=== PATIENT | male | born 1965 | race Caucasian/White ===

== ENCOUNTER 2020-09-14 11:46 | Inpatient (IN) | payer MEDICAID ==
[~2020-09-14] VITALS: Ht 193 cm; Wt 214.3 kg
[~2020-09-14 11:46] MED LIST: ACETAMINOPHEN 500 MG TAB (TYLENOL) PO PRN; ALPRAZolam 0.25 MG (XANAX) TAB PO PRN; BISACODYL 10 MG SUPP (DULCOLAX) PR PRN; CALCIUM CARBONATE 500 MG (TUMS) TAB.CHEW PO PRN; DOCUSATE SODIUM 100 MG (COLACE) CAP PO PRN; ENOXAPARIN 40 MG/0.4 ML (LOVENOX) SYR SC SCH; FLEET ENEMA ADULT 1 EA BTL PR PRN; LACTULOSE SYRUP 10GM/15ML (ENULOSE) 30ML UDC PO PRN; LOPERAMIDE 2 MG (IMODIUM) TABLET PO PRN; MELATONIN 3 MG TABLET PO PRN; ONDANSETRON 4 MG (ZOFRAN) ORAL DISSOLVE TAB PO PRN; diphenhydrAMINE 25 MG TAB (BENADRYL) PO PRN; guaiFENesin/CODEINE (ROBITUSSIN AC) 10ML UDC PO PRN
[2020-09-14 13:00] VITALS: BP 140/87
--- NOTE | 2020-09-14 13:42 | Consultation - Surgery ---
RHINA SALCIDO MED STUDENT 09/14/20 1342: History of Present Illness History of Present Illness Patient Consulted On(khloe/time) 09/14/20 13:36 Date Seen by Provider: Sep 14, 2020 Time Seen by Provider: 14:28 History of Present Illness 55 yo male presents to in patient rehab from Replaced By [facility] following previous incision/ drainage and debridement of necrotic tissue at [facility]. Patient describes popping what he believed at the time to be an ingrown hair/ pimple on 08/24, later told it was a spider bite. The following day a silver dollar size, tender nodule was noticed. The next following day (08/26) the testicle had swollen to the size of the coconut where he decided to go to the hospital. Incision and drainage was performed in the OR on 08/27. Pt notes t enderness as a dull achy pain at 7-8/10 w/o pain medicine and bearable w/t pain medicine. Main complaint currently is pain with his knees when walking. Patient transferred to [facility] 09/14/20. Completed vancomycin and zosyn on 09/12/20. Consulted by Dr. Joyce Guerrero. Wound measurements: 8.4 L, 2.5 W, 2.1 D Allergies and Home Medications Allergies Coded Allergies: No Known Drug Allergies (Unverified , 09/14/20) Home Medications Acetaminophen 325 Mg Tablet, 650 MG PO Q6H PRN for PAIN-MILD (1-4) OR TEMPATURE, (Reported) Acidoph/L.bulg/Bif.b/S.thermop 1 Each Tablet, 1 EACH PO BID, (Reported) Alogliptin Benzoate 25 Mg Tablet, 25 MG PO DAILY, (Reported) Ascorbic Acid 500 Mg Tablet, 500 MG PO BID, (Reported) Atorvastatin Calcium 20 Mg Tablet, 20 MG PO HS, (Reported) Metformin HCl 1,000 Mg Tablet, 1,000 MG PO BID WITH MEALS, (Reported) Metoprolol Succinate 100 Mg Tab.er.24h, 100 MG PO DAILY, (Reported) Multivitamin with Minerals 1 Each Tablet, 1 EACH PO DAILY, (Reported) Nitroglycerin 0.4 Mg Tab.subl, 0.4 MG SL UD PRN for CHEST PAIN, (Reported) Oxycodone HCl 10 Mg Tablet, 10 MG PO Q4H PRN for PAIN-SEVERE (8-10), (Reported) Topiramate 25 Mg Tablet, 25 MG PO BID, (Reported) Trazodone HCl 100 Mg Tablet, 100 MG PO HS, (Reported) Zinc 50 Mg Tablet, 50 MG PO DAILY, (Reported) Past Ngfqvve-Zbdbhj-Hewefn Hx Patient Social History Smoking Status: Never a Smoker Alcohol Use?: No Surgeries History of Surgeries: Yes Surgeries: Ear Surgery (Tympanic repair left) Respiratory History of Respiratory Disorde: No Cardiovascular History of Cardiac Disorders: Yes Cardiac Disorders: High Cholesterol, Hypertension Neurological History of Neurological Disord: No Gastrointestinal History of Gastrointestinal Di: No Musculoskeletal History of Musculoskeletal Dis: Yes Musculoskeletal Disorders: Arthritis (bilateral knee most concerning) Endocrine History of Endocrine Disorders: Yes Endocrine Disorders: Diabetes, Non-Insulin dep HEENT History of HEENT Disorders: No Hearing Impairment: Hard of Hearing (bilateral due to working around heavy machinery) Cancer History of Cancer: No Psychosocial History of Psychiatric Problem: No Integumentary History of Skin or Integumenta: No Family Medical History Significant Family History: Asthma (maternal), Other Conditions/Hx (arthritis paternal and maternal) Review of Systems-General Constitutional: No chills, No dizziness; weakness (knees) EENTM: No hearing loss, No vision loss Respiratory: cough, dyspnea on exertion, phlegm (clear) Cardiovascular: No chest pain, No palpitations Gastrointestinal: No abdominal pain, No dysphagia, No nausea, No vomiting Genitourinary: No dysuria, No hematuria Musculoskeletal: back pain, joint pain (knees), joint swelling (knees) Skin: No lumps, No pruritus, No rash Psychiatric/Neurological: Denies Headache, Denies Numbness, Denies Tremors All Other Systems Reviewed Negative Unless Noted: Yes Physical Exam-General Problems Physical Exam Vital Signs Capillary Refill : General Appearance: WD/WN, no apparent distress, obese Eyes: Bilateral Eye PERRL, Bilateral Eye EOMI HEENT: PERRL/EOMI Neck: non-tender, full range of motion, supple, normal inspection Respiratory: chest non-tender, lungs clear, normal breath sounds, no respiratory distress, no accessory muscle use Cardiovascular: regular rate, rhythm, no edema, no gallop, no murmur Peripheral Pulses: 2+ Dorsalis Pedis (R), 2+ Left Dors-Pedis (L), 2+ Radial Pulses (R), 2+ Radial Pulses (L) Gastrointestinal: normal bowel sounds, non tender, soft Rectal: deferred Genital/Rectal: other (Fourniers gangrene (swollen, full thickness tissue loss, bright/ beefy red)) Back: no CVA tenderness Extremities: non-tender, normal inspection, no pedal edema, no calf tenderness Neurologic/Psychiatric: no motor/sensory deficits, alert, normal mood/affect, oriented x 3 Skin: other (Fourniers gangrene), tattoos/piercings Lymphatic: no adenopathy (cervical, supraclavicular, axillary) Assessment/Plan Assessment/Plan Assessment/Plan Fourniers gangrene Poorly controlled DM HTN Wound care Pain management Monitor wound healing BEREKET HOOPER DO 09/14/208: History of Present Illness History of Present Illness Time Seen by Provider: 16:21 History of Present Illness Surgery asked to consult regarding Scrotal wound with hx of Jose's. When I spoke to the pt he stated that he had surgery twice in [place]; once on 08/27 and then 2 days later. He was in the hospital for 3 weeks because of fever and other medical problems. Allergies and Home Medications Allergies Coded Allergies: No Known Drug Allergies (Unverified , 09/14/20) Home Medications Acetaminophen 325 Mg Tablet, 650 MG PO Q6H PRN for PAIN-MILD (1-4) OR TEMPATURE, (Reported) Acidoph/L.bulg/Bif.b/S.thermop 1 Each Tablet, 1 EACH PO BID, (Reported) Alogliptin Benzoate 25 Mg Tablet, 25 MG PO DAILY, (Reported) Ascorbic Acid 500 Mg Tablet, 500 MG PO BID, (Reported) Atorvastatin Calcium 20 Mg Tablet, 20 MG PO HS, (Reported) Metformin HCl 1,000 Mg Tablet, 1,000 MG PO BID WITH MEALS, (Reported) Metoprolol Succinate 100 Mg Tab.er.24h, 100 MG PO DAILY, (Reported) Multivitamin with Minerals 1 Each Tablet, 1 EACH PO DAILY, (Reported) Nitroglycerin 0.4 Mg Tab.subl, 0.4 MG SL UD PRN for CHEST PAIN, (Reported) Oxycodone HCl 10 Mg Tablet, 10 MG PO Q4H PRN for PAIN-SEVERE (8-10), (Reported) Topiramate 25 Mg Tablet, 25 MG PO BID, (Reported) Trazodone HCl 100 Mg Tablet, 100 MG PO HS, (Reported) Zinc 50 Mg Tablet, 50 MG PO DAILY, (Reported) Patient Home Medication List Home Medication List Reviewed: Yes Past Shucyeo-Fbclgx-Htcish Hx Patient Social History Smoking Status: Never a Smoker Alcohol Use?: No Surgeries History of Surgeries: Yes Respiratory History of Respiratory Disorde: No Musculoskeletal History of Musculoskeletal Dis: Yes Endocrine History of Endocrine Disorders: Yes Endocrine Disorders: Diabetes, Non-Insulin dep Family Medical History Significant Family History: Asthma (maternal), Other Conditions/Hx (arthritis paternal and maternal) Review of Systems-General Constitutional: No chills, No dizziness; weakness (knees) EENTM: No hearing loss, No vision loss Respiratory: cough, dyspnea on exertion, phlegm (clear) Cardiovascular: No chest pain, No palpitations Gastrointestinal: No abdominal pain, No dysphagia, No nausea, No vomiting Skin: see HPI, lumps, pruritus, rash Physical Exam-General Problems Physical Exam General Appearance: no apparent distress, obese (super morbidly) Eyes: Bilateral Eye PERRL, Bilateral Eye EOMI HEENT: No scleral icterus (R), No scleral icterus (L) Respiratory: lungs clear, normal breath sounds, no respiratory distress, no accessory muscle use Cardiovascular: regular rate, rhythm, no murmur Genital/Rectal: other (right side of scrotum, good granulation along open area (bright/ beefy red)) Extremities: no pedal edema, no calf tenderness 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 Supervisory-Addendum Brief Verification & Attestation Participated in pt care: history, MDM, physical Personally performed: exam, history, MDM Care discussed with: Medical Student Procedures: n/a Verification and Attestation of Medical Student E/M Service A medical student performed and documented this service. I then reviewed and verified all information documented by the medical student and made modifications to such information, when appropriate. I personally performed a physical exam, medical decision making and then discussed any differences between the notes and made revisions as necessary to create one note. Bereket Hooper , 09/14/20 , 21:58 RHINA SALCIDO MED STUDENT Sep 14, 2020 13:42 BEREKET HOOPER DO Sep 14, 2020 21:48
[2020-09-14] MEDS ORDERED: ACETAMINOPHEN 325 MG TABLET PO PRN (13:45)
[2020-09-14] MEDS ORDERED: ACID1TAB13 PO (13:46)
[2020-09-14] MEDS ORDERED: ACET325T38 PO (13:46)
[2020-09-14] MEDS ORDERED: ASCO500T17 PO (13:46)
[2020-09-14] MEDS ORDERED: ZINC50TA58 PO (13:46)
[2020-09-14] MEDS ORDERED: METF-399 PO (13:46)
[2020-09-14] MEDS ORDERED: OXYC10TA7 PO (13:46)
[2020-09-14] MEDS ORDERED: TRAZ-227 PO (13:46)
[2020-09-14] MEDS ORDERED: ALOG25TA PO (13:46)
[2020-09-14] MEDS ORDERED: NITR0.4T39 SL (13:46)
[2020-09-14] MEDS ORDERED: ATOR20TA66 PO (13:46)
[2020-09-14] MEDS ORDERED: MTP100TCR PO (13:46)
[2020-09-14] MEDS ORDERED: MULT-166 PO (13:46)
[2020-09-14] MEDS ORDERED: TOPI25TA10 PO (13:46)
--- NOTE | 2020-09-14 15:15 | Occupational Therapy Eval ---
OT Evaluation-General/PLF Medical Diagnosis Admission Date Sep 14, 2020 at 13:30 Medical Diagnosis: Jose's gangrene s/p multiple debridements Onset Date: Sep 05, 2020 Therapy Diagnosis Therapy Diagnosis: Weakness Precautions Precautions/Isolations: Fall Prevention, Standard Precautions Weight Bear Status Weight Bearing Restriction: Weight Bearing/Tolerated Referral Physician: Dr. Guerrero Referral Reason: Activity Tolerance, Self Care, Evaluation/Treatment, Strengthening/ROM Medical History Pertinent Medical History: DM, HTN Additional Medical History Hyperlipidemia Current History Pt. sustained spider bite on scrotum and ended up having severe swelling. This prompted him to go to the ER where it was found that he had gangrene. Pt. has had multiple debridements now. Transferred here for debility. Pt. also was miranda iting Cortisone injections in bilateral knees, but these are on hold due to this hospitalization. Pt. states that without these injections, he has difficulty with ambulation. Reviewed History: Yes Social History Home: Single Level Current Living Status: Entry Into Home: Level Entry Pt. currently rents a room in a house with friends in [place]. However, after this hospitalization he plans to move into his daughter's home in [place]. ADL-Prior Level of Function SCALE: Activities may be completed with or without assistive devices. 4-Kwmjjbpoza-kohphdy completes the activity by him/herself with no assistance from a helper. 5-Set-up or Clean-up Assistance-helper sets up or cleans up; patient completes activity. [place] assists only prior to or following the activity. 4-Supervision or Touching Assistance-helper provides verbal cues and/or touching/steadying and/or contact guard assistance as patient completes activity. Assistance may be provided throughout the activity or intermittently. 3-Partial/Moderate Assistance-helper does LESS THAN HALF the effort. [place] lifts, holds or supports trunk or limbs, but provides less than half the effort. 2-Substantial/Maximal Assistance-helper does MORE THAN HALF the effort. [place] lifts or holds trunk or limbs and provides more than half the effort. 4-Cezuzxted-lleejv does ALL the effort. Patient does none of the effort to complete the activity. Or, the assistance of 2 or more helpers is required for the patient to complete the activity. If activity was not attempted, code reason: 7-Patient Refused. 9-Not Applicable-not attempted and the patient did not perform the activity before the current illness, exacerbation or injury. 10-Not Attempted due to Environmental Limitations-(lack of equipment, weather restraints, etc.). 88-Not Attempted due to Medical Conditions or Safety Concerns. ADL PLOF Comments Pt. states that he was independent with all daily tasks. He does not have any assistive devices. 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 reports discomfort in scrotal area but does not give pain number. Does ask nursing for pain medication. Nursing working on this. Mental Status/Objective Patient Orientation: Person, Place, Time, Situation Current Glasses/Contacts: Yes Upper Extremity ROM WFL Upper Extremity Strength WFL ADL-Treatment Eating (QC): 6 Oral Hygiene (QC): 7 Shower/Bathe Self (QC): 3 (At bed level with sponge bath. Pt. able to wash upper body but required assistance to wash lower body.) Upper Body Dressing (QC): 5 Lower Body Dressing (QC): 3 On/Off Footwear (QC): 2 Toileting Hygiene (QC): 1 (Pt. has in catheter. States that he has only used a bedpan at other facility. Pt. shown and educated on BSC. Pt. unsure this will work due to scrotal size.) Other Treatments Pt. seen for co-treatment with PT due to need of skilled assistance x 2. PT focused on transfer training, LE movement, positioning, and wheelchair mobility while OT focused on ADL skills, UE movement and assessment, energy conservation and sequencing. Pt. able to transfer supine-sit with SBA, and sit-stand with min assist. Pt. limited with ambulation and transfers due to poor knee movement. Nursing will notify to see if pt. can transfer care for steroid injection at this facility. Pt. able to self propel wheelchair to therapy gym. Pt. educated on rehab goals and surroundings. All needs met back in room. Pt. able to stand at bedside by holding bedrail for wheelchair to be switched out for bigger chair. Pt. has call light and table when therapy leaves room. Education OT Patient Education: Correct positioning, Exercise program, Modified ADL techniques, Progress toward Goal/Update tx plan, Purpose of tx/functional activities, Reviewed precautions, Rehab process, Transfer techniques Teaching Recipient: Patient Teaching Methods: Demonstration, Discussion Response to Teaching: Verbalize Understanding, Return Demonstration OT Short Term Goals Short Term Goals Time Frame: Sep 21, 2020 Eatin Oral hygiene: 5 Toileting hygiene: 4 Shower/bathe self: 4 Upper body dressin Lower body dressin Putting on/taking off footwear: 4 OT Mover Goals Mover Goals Time Frame: Sep 28, 2020 Eating (QC): 6 Oral Hygiene (QC): 6 Toileting Hygiene (QC): 6 Shower/Bathe Self (QC): 4 Upper Body Dressing (QC): 6 Lower Body Dressing (QC): 6 On/Off Footwear (QC): 6 Additional Goals: 1-Demonstrate ADL Tasks, 2-Verbalize Understanding, 3-ImproveStrength/Warner 1=Demonstrate adherence to instructed precautions during ADL tasks. 2=Patient will verbalize/demonstrate understanding of assistive devices/modifications for ADL. 3=Patient will improve strength/tolerance for activity to enable patient to perform ADL's. OT Education/Plan Problem List/Assessment Assessment: Decreased Activ Tolerance, Dependent Transfers, Impaired I ADL's, Impaired Self-Care Skills Discharge Recommendations Plan/Recommendations: Continue POC Therapy Discharge Recommendati: Home & Family Comment Equipment needs to be determined. Treatment Plan/Plan of Care Treatment,Training & Education: Yes Patient would benefit from OT for education, treatment and training to promote independence in ADL's, mobility, safety and/or upper extremity function for ADL's. Plan of Care: ADL Retraining, Functional Mobility, UE Funct Exercise/Act Treatment Duration: Sep 28, 2020 Frequency: At least 5 of 7 days/Wk (IRF) Estimated Hrs Per Day: 1.5 hours per day Agreement: Yes Rehab Potential: Good Time/GCodes Start Time: 13:00 Stop Time: 14:30 Total Time Billed (hr/min): 80 Billed Treatment Time 9310-8155 PT eval, no charge 8310-9870 1, EVM x 10minutes [id number] ADL x 35minutes, FA x 35minutes- Co-treatment with PT. Please see above note for designated roles. BRENDAN BARBOZA OT Sep 14, 2020 15:15
--- NOTE | 2020-09-14 15:24 | ST Cognitive Linguistic Eval ---
Speech Evaluation-General Medical Diagnosis Jose Gangrene Therapy Diagnosis Therapy Diagnosis: Cognitive-communication Referral Referring Physician: Dr. Yolanda Acuna PLF-Current Status Prior Level of Function Patient lived in his own home where he was independent with his daily needs. Subjective Patient was pleasant and cooperative with the cognitive assessment. Language Eval: Auditory Comprehends Simple Yes/No Ques: Functional Indent/Objects Multiple Benjamin: Functional Ident/Pics in Multiple Benjamin: Functional Follows 1-Step Commands: Functional Follows Complex Directions: Functional Follows General Conversations: Functional Language Eval: Verbal Language Completes Spontaneous Greeting: Functional Produces Auto, Serial Info: Functional Imitates Simple Words/Phrases: Functional Word Finding: Functional Requests Basic Needs: Functional States Basic Personal Info: Functional Expresses Complex Ideas: Functional Objective Cognitive Domain Attention: WNL Memory: WNL Problem Solving: Functional Executive Functions: WNL Visuospatial Skills: WNL Composite Severity Rating: WNL Clock Drawing Severity Rating: WNL Objective Formal/Standardized Tests [facility] Status ([facility]) Results 29/30, within normal range of function Oral Motor/Speech Production Within Normal Limits Impression Patient is a 55 y/o male who was transferred to the [facility] ARU due to 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 Patient transferred from a [facility] following 2 surgeries. Patient was given the UMS with a score of 29/30 obtained. This score is within normal range of function and does not indicate the need for further ST services at this time. Speech Patient Assess Expression of Ideas/Wants: Expression (4) Understanding Verbal Content: Understands (4) Brief Interview-Mental Status: Yes Repetition of Three Words: Three (3) Temporal Orientation: Year: Correct (3) Temporal Orientation: Month: Accurate within 5 days(2) Temporal Orientation: Day: Correct (1) Recall : Wear to say "Sock": Yes, no cue required (2) Recall : Color: Yes, no cue required (2) Recall : Bed: Yes, no cue required (2) Memory/Recall Ability: Current season, That he or she is in a hsp/hsp unit Speech-Plan Patient/Family Goals Patient/Family Goals: Patient plans on returning to his home upon discharge. Treatment Plan Speech Therapy Treatment Plan: Discontinue ST Treatment Duration: Sep 14, 2020 Frequency: 1 time per week Estimated Hrs Per Day: .25 hour per day Rehab Potential: Good Barriers to Learning: None identified Pt/Family Agrees to Plan: Yes Safety Risks/Education Teaching Recipient: Patient Teaching Methods: Discussion Response to Teaching: Verbalize Understanding Education Topics Provided: Safety within his room and communication of wants/needs Time Speech Therapy Time In: 14:40 Speech Therapy Time Out: 15:00 Total Billed Time: 20 Billed Treatment Time 1, SPSNDCOMP TOYIN Atkins Sep 14, 2020 15:24
--- NOTE | 2020-09-14 15:34 | Physical Therapy Evaluation ---
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 He was treated at an acute care hospital and transferred to this facility for continued strength and mobiltiy training due to a decline post lengthy hospital stay. Pt notes B knee pain that is limiting WB or ambulation at this time. Reviewed History: Yes Social History Prior to this event, pt was living with friends in [place]. Reports he was renting a room from them. Reports his discharge plan is to move into a handicap apartment in [place] and receive homemaker assist 3 days a week. Reports he plans to move to [place] to be closer to his daughter Prior Prior Level of Function SCALE: Activities may be completed with or without assistive devices. 2-Icefdbrvqy-emzasyv completes the activity by him/herself with no assistance from a helper. 5-Set-up or Clean-up Assistance-helper sets up or cleans up; patient completes activity. [place] assists only prior to or following the activity. 4-Supervision or Touching Assistance-helper provides verbal cues and/or touching/steadying and/or contact guard assistance as patient completes activity. Assistance may be provided throughout the activity or intermittently. 3-Partial/Moderate Assistance-helper does LESS THAN HALF the effort. [place] lifts, holds or supports trunk or limbs, but provides less than half the effort. 2-Substantial/Maximal Assistance-helper does MORE THAN HALF the effort. [place] lifts or holds trunk or limbs and provides more than half the effort. 4-Wxydlkxqf-raxrgi does ALL the effort. Patient does none of the effort to complete the activity. Or, the assistance of 2 or more helpers is required for the patient to complete the activity. If activity was not attempted, code reason: 7-Patient Refused. 9-Not Applicable-not attempted and the patient did not perform the activity before the current illness, exacerbation or injury. 10-Not Attempted due to Environmental Limitations-(lack of equipment, weather restraints, etc.). 88-Not Attempted due to Medical Conditions or Safety Concerns. Bed Mobility: 6 Transfers (B,C,W/C): 6 Gait: 6 Stairs: 6 Indoor Mobility (Ambulation): Independent Stairs: Independent independent with mobility and self care. Community ambulator. PT Evaluation-Current Subjective Agrees to PT evaluation. Pt reports he is overdue for a steroid injection in both knees. Reports he was supposed to receive this in mid July, but missed the appt, as his truck was broken down. "Once I get the injection in both knees, I'll be able to get up and go." Pt hesitant to progress gait this date due to increased knee pain. Pt notes increased pain with WB activity and declines prolonged standing due to pain. He also declined ambulation tasks due to pain. Pain Numeric Pain Scale: 6 Location: Right, Left Location Body Site: Knee Pain Description: Ache, Stabbing Comment: Arthritic pain Pt/Family Goals He reports his goal is to get the knee injections so he can walk and return home as before. Objective Patient Orientation: Person, Place, Time Attachments: Langston Catheter ROM/Strength ROM Lower Extremities WFL Strength Lower Extremities Strength is grossly 4/5 throughout and painful with knee resistance activity. Integumentary/Posture Integumentary Refer to nursing notes; scrotal wound post spider bite Bowel Incontinence: No Bladder Incontinence: Langston Cath Posture normal and symmetrical Neuromuscular (Tone, Coordination, Reflexes) intact and functional Sensory Vision: Functional Hand Dominance: Right Sensation Right Lower Extremit: Intact Sensation Left Lower Extremity: Intact Transfers Roll Left & Right (QC): 6 Sit to Lying (QC): 4 Lying to Sitting/Side of Bed(Q: 4 Sit to Stand (QC): 3 (min assist with skilled cues for safety; min assist for balance and steady assist. ) Chair/Owr-kc-Qxszm Xfer(QC): 3 Toilet Transfer (QC): 7 (Pt declined toilet transfer this date, noting he did not need to use the toilet. ) Car Transfer (QC): 7 (Declined due to painful WB activity for transfer. ) Gait Does the Patient Walk?: No and Walking Goal IS indicated Mode of Locomotion: Both Anticipated Mode of Locomotion: Walk Walk 10 feet (QC): 7 Walk 50 ft with 2 Turns(QC): 7 Walk 150 ft (QC): 7 Walking 10ft/uneven surface-QC: 7 Gait Assistive Device: FWW Comments/Gait Description Pt declined ambulation this date due to B Knee pain. Wheelchair Training Does the Pt Use a Wheelchair?: Yes Wheel 50 ft with 2 turns (QC): 6 Wheel 150 ft (QC): 6 Type of Wheelchair: Manual Stairs 1 Step (curb) (QC): 7 4 Steps (QC): 7 12 Steps (QC): 7 Balance Sitting Static: Good Sitting Dynamic: Good Standing Static: Fair Standing Dynamic: Fair Picking up an Object (QC): 88 Treatment Co treat with OT due to complexity of patient needs. B knee pain with standing activity and risk of falls without skill of 2 clinicians to safely address transfers and safety with upright mobility requiring cues for hand placement and transfer technique. Pt completed a sponge bath and dressing activities. Multiple standing and transfers, bed mobility tasks and wc mobility training performed. Assessment/Needs Pt presents post acute hospital stay with a decline in functional mobility. He was indep at [facility]. His primary limitation to gait and transfers is B knee pain as he is past due to receive a cortisone injection in both knees. Pt will benefit from skilled PT to addres mobiltiy and safety to allow him to return home alone and care for himself at a mod [facility] level. Rehab Potential: Good PT Short Term Goals Short Term Goals Time Frame: Sep 21, 2020 Sit to stand: 4 Chair/iwe-kc-latgd transfer: 4 Walk 150 feet: 4 PT Media Relations Coordinator Goals Media Relations Coordinator Goals PT Fdc Goals Time Frame: Sep 28, 2020 Roll Left & Right (QC): 6 Sit to Lying (QC): 6 Lying-Sitting on Side/Bed(QC): 6 Sit to Stand (QC): 6 Chair/Gfe-yb-Wzvrm Xfer(QC): 6 Toilet Transfer (QC): 6 Car Transfer (QC): 6 Does the Patient Walk: No and Walking Goal IS indicated Walk 10 feet (QC): 6 Walk 50ft with 2 Turns (QC): 6 Walk 150 ft (QC): 6 Walking 10ft on Uneven Surface: 6 1 Step (curb) (QC): 6 4 Steps (QC): 6 12 Steps (QC): 4 Picking up an Object (QC): 4 Does the Pt use WC or Scooter?: Yes Wheel 50 feet with 2 turns (QC: 6 Type: Manual Wheel 150 feet: 6 PT Plan Problem List Problem List: Activity Tolerance, Functional Strength, Safety, Balance, Gait, Transfer, Bed Mobility Treatment/Plan Treatment Plan: Continue Plan of Care Treatment Plan: Bed Mobility, Education, Functional Activity Warner, Functional Strength, Group Therapy, Gait, Safety, Therapeutic Exercise, Transfers Treatment Duration: Sep 28, 2020 Frequency: At least 5 of 7 days/Wk (IRF) Estimated Hrs Per Day: 1.5 hours per day Patient and/or Family Agrees t: Yes Safety Risks/Education Patient Education: Safety Issues Teaching Recipient: Patient Teaching Methods: Discussion Response to Teaching: Return Demonstration Time/GCodes Time In: 1300 Time Out: 1310 (0238-8257 ) Total Billed Treatment Time: 80 Total Billed Treatment visit EVM 10 FA 70 (co treat with OT) SRINIVASA HERRON PT Sep 14, 2020 15:34
[2020-09-14 16:28] VITALS: BP 122/72
[2020-09-14] MEDS ORDERED: NITROGLYCERIN 0.4 MG SL TABS BTL 25'S SL PRN (18:15)
[2020-09-14] MEDS ORDERED: NON-FORMULARY MEDICATION 1 EA EA (Oxycodone HCl 10 MG) PO PRN (18:15)
--- NOTE | 2020-09-14 20:14 | Diagnostic Imaging Report ---
INDICATION: Chronic knee pain. COMPARISON: None. EXAMINATION: Multiple views of bilateral knees were obtained. FINDINGS: There are severe degenerative changes in all three compartments of both knees. There is no acute fracture or dislocation. Marginal joint space osteophytosis is seen. There is no joint effusion. No osseous lesion. IMPRESSION: Severe degenerative joint disease. Dictated by: Dictated on workstation # [id number]
--- NOTE | 2020-09-14 20:19 | PM&R Post Admission Assessment ---
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 Patient was taken to surgery for debridement. Patient ultimately required intubation and pressor therapy for septic shock. Multiple debridements during hospital stay. Patient ultimately moved to [facility] and completed Vanc and Zosyn. Patient does not use O2 or CPAP. Morbid obesity noted. Knee injections given by PCP every 3 months so I have conferred with Dr Bynum and he will initiate injections tomorrow so ordered xrays as he has requested. BM+. Pain is controlled. Past Mereuln-Rienus-Rojisi Hx Past Med/Social Hx: Reviewed Nursing Past Med/Soc Hx, Reviewed and Corrections made Patient Social History Marrital Status: single Employed/Student: unemployed Alcohol Use: Occasionally Uses Smoking Status: Never a Smoker Past Medical History Surgeries: Ear Surgery (Tympanic repair left) Cardiac: High Cholesterol, Hypertension Musculoskeletal: Arthritis (bilateral knee most concerning) Endocrine: Diabetes, Non-Insulin dep Hearing Impairment: Hard of Hearing (bilateral due to working around heavy machinery) Family History Asthma (maternal), Other Conditions/Hx (arthritis paternal and maternal) Prior Level of Function Bed Mobility: 6 Transfers: 6 Gait: 6 Stairs: 6 Indoor Mobility (Ambulation): Independent Stairs: Independent Self Care: Independent Functional Cognition: Independent 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 ) Chair/Qet-va-Euogx Xfer: 3 Car Transfer: 7 (Declined due to painful WB activity for transfer. ) Does the Patient Walk: No and Walking Goal IS indicated Mode of Locomotion: Both Anticipated Mode of Locomotion: Walk Walk 10 feet: 7 Walk 50 ft with 2 Turns: 7 Walk 150 ft: 7 Walking 10ft on uneven surface: 7 Gait Assistive Device: FWW Does the Pt Use a Wheelchair: Yes Wheel 50 ft with 2 turns: 6 Wheel 150 ft: 6 Type of Wheelchair: Manual 1 Step (curb): 7 4 Steps: 7 12 Steps: 7 Picking up an Object: 88 Eatin Oral Hygiene: 7 Shower/Bathe Self: 3 (At bed level with sponge bath. Pt. able to wash upper body but required assistance to wash lower body.) Upper Body Dressin Lower Body Dressin On/Off Footwear: 2 Toileting Hygiene: 1 (Pt. has in catheter. States that he has only used a bedpan at other facility. Pt. shown and educated on BSC. Pt. unsure this will work due to scrotal size.) PM&R Allergy/Meds/Data Review Allergies Coded Allergies: No Known Drug Allergies (Unverified , 09/14/20) Home Medications Scheduled Acidoph/L.bulg/Bif.b/S.thermop (Shara-Bid Caplet), 1 EACH PO BID, (Reported) Alogliptin Benzoate (Nesina), 25 MG PO DAILY, (Reported) Ascorbic Acid (Vitamin C), 500 MG PO BID, (Reported) Atorvastatin Calcium (Atorvastatin Calcium), 20 MG PO HS, (Reported) Metformin HCl (Metformin HCl), 1,000 MG PO BID WITH MEALS, (Reported) Metoprolol Succinate (Metoprolol Succinate), 100 MG PO DAILY, (Reported) Multivitamin with Minerals (Multivitamins with Minerals), 1 EACH PO DAILY, (R eported) Topiramate (Topiramate), 25 MG PO BID, (Reported) Trazodone HCl (Trazodone HCl), 100 MG PO HS, (Reported) Zinc (Zinc), 50 MG PO DAILY, (Reported) Scheduled PRN Acetaminophen (Tylenol), 650 MG PO Q6H PRN for PAIN-MILD (1-4) OR TEMPATURE, (Reported) Nitroglycerin (Nitroglycerin), 0.4 MG SL UD PRN for CHEST PAIN, (Reported) Oxycodone HCl (Oxycodone HCl), 10 MG PO Q4H PRN for PAIN-SEVERE (8-10), (Reported) Current Medications Current Medications Reviewed Laboratory Data Laboratory Tests 09/14/20 15:41: Glucometer 108 Review of Systems Constitutional: see HPI, malaise, weakness EENTM: no symptoms reported Respiratory: no symptoms reported Cardiovascular: no symptoms reported Gastrointestinal: no symptoms reported Genitourinary: no symptoms reported Musculoskeletal: back pain, joint pain Skin: see HPI Psychiatric/Neurological: Anxiety, Depressed All Other Systems Reviewed Negative Unless Noted: Yes Physical Exam Physical Exam Vital Signs Vital Signs - First Documented 09/14/20 13:00 Temp 37.8 Pulse 98 Resp 22 B/P (MAP) 140/87 (104) Pulse Ox 97 O2 Delivery Room Air Capillary Refill : Height, Weight, BMI Height: '" Weight: lbs. oz. kg; 57.98 BMI Method: General Appearance: No Apparent Distress, WD/WN, Chronically ill, Obese Eyes: Bilateral Eye PERRL, Bilateral Eye EOMI HEENT: PERRL/EOMI, Normal ENT Inspection, Pharynx Normal Neck: Full Range of Motion, Normal Inspection, Non Tender, Supple, Carotid Bruit Respiratory: Chest Non Tender, Lungs Clear, Normal Breath Sounds, No Accessory Muscle Use, No Respiratory Distress Cardiovascular: Regular Rate, Rhythm, No Edema, No Gallop, No JVD, No Murmur, Normal Peripheral Pulses Gastrointestinal: Normal Bowel Sounds, No Organomegaly, No Pulsatile Mass, Non Tender, Soft Back: Normal Inspection, No CVA Tenderness, No Vertebral Tenderness Extremity: Normal Capillary Refill, Normal Inspection, Normal Range of Motion, Non Tender, No Calf Tenderness, No Pedal Edema Neurologic/Psychiatric: Alert, Oriented x3, No Motor/Sensory Deficits (unable to ambulate due to myopathy), Normal Mood/Affect Skin: Normal Color, Warm/Dry Lymphatic: No Adenopathy PM&R Medical Assessment & Plan REHAB/MEDICAL ASSESSMENT AND PLAN: REHAB IMPAIRMENT GROUP: Jose's gangrene ETIOLOGIC DIAGNOSIS: Jose's gangrene The comorbidities that impact the patients function and/or functional outcome by: morbid obesity, debility from knee pain chronic issue, DM, Wound management REHAB PLAN: The patient is being admitted to our comprehensive inpatient rehabilitation [facility] and can tolerate the intensity of service consisting of at least: 180 minutes of therapy a day, 5 out of 7 days a week Rehab treatment will consist of: PT OT will focus on regaining function and ambulatory skills with use of AD and ADL independence The patient/family has a good understanding of our discharge process and will benefit from an interdisciplinary inpatient rehabilitation program. The patient has potential to make improvement and is in need of at least two of the following multidisciplinary therapies including but not limited to physical, occupational, speech, and prosthetics and orthotics. Additionally the patient will need services from respiratory, nutritional services, wound care, psychology, etc. (Customize this to each patient). Given the patients complex condition and risk of further medical complications, rehabilitation services cannot be safely or effectively provided at a lower level of care such as a shelter facility. 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 PT OT will focus on regaining function and ambulatory skills with use of AD and ADL independence All the above goals were reviewed with the patient and he/she is in agreement. By signing this document, I acknowledge that I have personally performed a full physical examination on this patient within 24 hours of admission to this inpatient rehabilitation facility and have determined the patient to be able to tolerate the above course of treatment at an intensive level for a reasonable period of time. I will be completing a detailed individualized Plan of Care for this patient by day #4 of the patients stay based upon the Preadmission Screen, the Post-Admission Evaluation, and the therapy evaluations. Admission Dx/Comorbidities: (1) Jose gangrene ICD Codes: N49.3 - Jose gangrene Assessment/Plan Assessment and Plan Assess & Plan/Chief Complaint 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 DM HTN Obesity Knee pain requiring steroid injections every 3 months by PCP Plan: IRF protocol Knee xrays Home meds Pain control GISELLE CARBONE DO Sep 14, 2020 20:19
[2020-09-14] MEDS ORDERED: methylPREDNISolone 40 MG/ML (DEPO MEDROL) VIAL IA NR (20:30)
[2020-09-14] MEDS ORDERED: BUPIVACAINE 0.25% 30 ML (SENSORCAINE) VIAL INJ NR (20:30)
[2020-09-14] MEDS ORDERED: [UNRECOGNIZED DRUG - OTHER] PO SCH (21:00)
[2020-09-14] MEDS ORDERED: ENOXAPARIN 40 MG/0.4 ML (LOVENOX) SYR SC SCH (21:00)
[2020-09-14] MEDS: LACTOBACILLUS ACIDOPHILUS (PROBIOTIC) CAPSULE PO SCH (21:08)
[2020-09-14] MEDS: traZODone 100 MG (DESYREL) TAB PO SCH (21:09)
[2020-09-14] MEDS: toPIRamate 25 MG (TOPAMAX) TAB PO SCH (21:10)
[2020-09-14] MEDS: DOCUSATE SODIUM 100 MG (COLACE) CAP PO SCH (21:19)
[2020-09-14] MEDS: polyethylene glycoL POWDER 17 GM (MIRALAX) PACK PO SCH (21:20)
[2020-09-14] MEDS: SENNA W/DOCUSATE (SENOKOT S) TABLET PO SCH (21:20)
[2020-09-15 05:54] VITALS: BP 138/83
[2020-09-15 06:00] LABS: BASOPHILS % (AUTO) 1 % (0-10); EOSINOPHILS # (AUTO) 0.4 10^3/uL (0.0-0.3); EOSINOPHILS % (AUTO) 5 % (0-10); HEMATOCRIT 37 % (40-54); HEMOGLOBIN 12.2 g/dL (13.3-17.7); LYMPHOCYTES # (AUTO) 2.8 10^3/uL (1.0-4.0); LYMPHOCYTES % (AUTO) 33 % (12-44); MEAN CORPUSCULAR HEMOGLOBIN 30 pg (25-34); MEAN CORPUSCULAR HGB CONC 33 g/dL (32-36); MEAN CORPUSCULAR VOLUME 91 fL (80-99); MEAN PLATELET VOLUME 10.2 fL (9.0-12.2); MONOCYTES # (AUTO) 0.9 10^3/uL (0.0-1.0); MONOCYTES % (AUTO) 10 % (0-12); NEUTROPHILS # (AUTO) 4.2 10^3/uL (1.8-7.8); NEUTROPHILS % (AUTO) 51 % (42-75); PLATELET COUNT 290 10^3/uL (130-400); WHITE BLOOD COUNT 8.3 10^3/uL (4.3-11.0)
[2020-09-15 06:21] LABS: ALBUMIN 3.8 GM/DL (3.2-4.5); CHLORIDE 104 MMOL/L (98-107); POTASSIUM 3.7 MMOL/L (3.6-5.0); SODIUM 136 MMOL/L (135-145)
[2020-09-15 06:23] LABS: CALCIUM 9.1 MG/DL (8.5-10.1)
[2020-09-15 06:24] LABS: GLUCOSE 110 MG/DL (70-105); TOTAL PROTEIN 7.4 GM/DL (6.4-8.2)
[2020-09-15 06:25] LABS: CARBON DIOXIDE 23 MMOL/L (21-32)
[2020-09-15 06:26] LABS: BILIRUBIN,TOTAL 0.6 MG/DL (0.1-1.0)
[2020-09-15 06:27] LABS: ALKALINE PHOSPHATASE 74 U/L (40-136); GFR ESTIMATED > 60
[2020-09-15 06:28] LABS: BUN/CREATININE RATIO 13
[2020-09-15 06:30] LABS: ALANINE AMINOTRANSFERASE 67 U/L (0-55)
[2020-09-15] MEDS: MULTIVIT W/MINERALS TAB (THERAGRAN M) PO SCH (06:45)
[2020-09-15] MEDS ORDERED: NON-FORMULARY MEDICATION 1 EA EA (Metformin HCl 1,000 MG) PO SCH (08:00)
[2020-09-15 08:12] VITALS: BP 140/75
[2020-09-15] MEDS: metFORMIN 500 MG (GLUCOPHAGE) TAB PO SCH ×2 (08:13→17:12)
[2020-09-15] MEDS: toPIRamate 25 MG (TOPAMAX) TAB PO SCH ×2 (08:14→20:32)
[2020-09-15] MEDS: LACTOBACILLUS ACIDOPHILUS (PROBIOTIC) CAPSULE PO SCH ×2 (08:14→20:32)
[2020-09-15] MEDS: meTOprolol SUCCINATE 100 MG (TOPROL XL) TAB PO SCH (08:14)
[2020-09-15] MEDS: ZINC SULFATE 220 MG CAPSULE PO SCH (08:14)
[2020-09-15] MEDS: ENOXAPARIN 60 MG/0.6 ML (LOVENOX) SYR SC SCH ×2 (08:14→20:32)
[2020-09-15] MEDS: ASCORBIC ACID (VIT C) 500 MG TABLET PO SCH ×2 (08:14→17:12)
[2020-09-15] MEDS: DOCUSATE SODIUM 100 MG (COLACE) CAP PO SCH ×2 (08:49→20:39)
[2020-09-15] MEDS: polyethylene glycoL POWDER 17 GM (MIRALAX) PACK PO SCH ×2 (08:49→20:39)
[2020-09-15] MEDS: SENNA W/DOCUSATE (SENOKOT S) TABLET PO SCH ×2 (08:49→20:39)
[2020-09-15] MEDS ORDERED: NON-FORMULARY MEDICATION 1 EA EA (Zinc 50 MG) PO SCH (09:00)
--- NOTE | 2020-09-15 09:58 | Occupational Ther Daily Note ---
OT Current Status-Daily Note Subjective Pt AxO, denies pain anywhere while laying. Pt expresses pain in B knees during SPT. Pt agrees to tx. OT/ PT co-treat from [id number] with OT addressing UE movement, ADLs, and problem solving while PT addresses LE movement/ strength and w/c mob. OT individual tx: [id number]. Denies pain, AxO Mental Status/Objective Patient Orientation: Person, Place, Situation, Normal For Age Attachments: Langston Catheter ADL-Treatment Therapy Code Descriptions/Definitions Functional [place] Measure: 0=Not Assessed/NA 4=Minimal Assistance 1=Total Assistance 5=Supervision or Setup 2=Maximal Assistance 6=Modified [place] 3=Moderate Assistance 7=Complete IndependenceSCALE: Activities may be completed with or without assistive devices. 8-Dqzzgzuuma-yvwmtny completes the activity by him/herself with no assistance from a helper. 5-Set-up or Clean-up Assistance-helper sets up or cleans up; patient completes activity. [place] assists only prior to or following the activity. 4-Supervision or Touching Assistance-helper provides verbal cues and/or touching/steadying and/or contact guard assistance as patient completes activity. Assistance may be provided throughout the activity or intermittently. 3-Partial/Moderate Assistance-helper does LESS THAN HALF the effort. [place] lifts, holds or supports trunk or limbs, but provides less than half the effort. 2-Substantial/Maximal Assistance-helper does MORE THAN HALF the effort. [place] lifts or holds trunk or limbs and provides more than half the effort. 9-Towzxoaha-rrgguv does ALL the effort. Patient does none of the effort to complete the activity. Or, the assistance of 2 or more helpers is required for the patient to complete the activity. If activity was not attempted, code reason: 7-Patient Refused. 9-Not Applicable-not attempted and the patient did not perform the activity before the current illness, exacerbation or injury. 10-Not Attempted due to Environmental Limitations-(lack of equipment, weather restraints, etc.). 88-Not Attempted due to Medical Conditions or Safety Concerns. Eating (QC): 6 Shower/Bathe Self (QC): 7 Upper Body Dressing (QC): 5 On/Off Footwear: 6 Other Treatment OT/ PT co-treat from [id number] with OT addressing UE movement, ADLs, and problem solving while PT addresses LE movement/ strength and w/c mob. Pt completes bed mob supine to sit SBA, SPT SBA to w/c. Pt pushes chair IND to gym, SPT to EOM. Pt completes UE strengthening/ balance and sock management as outlined EOM. Good fx UE endurance/ strength. Pt to get cortisone shots in B knees this date, decrease in standing ability due to pain and OT/ PT direct treatment towards sitting activity. W/c mob through halls with rest breaks (see PT for distance), UE fx activity endurance moderate with w/c mob. Returns to room, SPT SBA and in bed with all needs met, call light in reach. OT individual tx: [id number]: Pt educated on UE theraband ex (completes 20 reps bilaterally of 5/5 exercises). States pain in palmar crease due to theraband, given 6# weights to complete over weekend. All needs met. Education OT Patient Education: Correct positioning, Exercise program, Home exercise program, Progress toward Goal/Update tx plan, Purpose of tx/functional activities, Safety issues, Transfer techniques Teaching Recipient: Patient Teaching Methods: Demonstration, Handout, Discussion Response to Teaching: Verbalize Understanding, Return Demonstration, Reinforcement Needed OT Short Term Goals Short Term Goals Time Frame: Sep 21, 2020 Eatin Oral hygiene: 5 Toileting hygiene: 4 Shower/bathe self: 4 Upper body dressin Lower body dressin Putting on/taking off footwear: 4 OT Manager Program Management Goals Manager Program Management Goals Time Frame: Sep 28, 2020 Eating (QC): 6 Oral Hygiene (QC): 6 Toileting Hygiene (QC): 6 Shower/Bathe Self (QC): 4 Upper Body Dressing (QC): 6 Lower Body Dressing (QC): 6 On/Off Footwear (QC): 6 Additional Goals: 1-Demonstrate ADL Tasks, 2-Verbalize Understanding, 3- ImproveStrength/Warner 1=Demonstrate adherence to instructed precautions during ADL tasks. 2=Patient will verbalize/demonstrate understanding of assistive devices/modifications for ADL. 3=Patient will improve strength/tolerance for activity to enable patient to perform ADL's. OT Education/Plan Problem List/Assessment Assessment: Decreased Activ Tolerance, Dependent Transfers, Edema, Impaired Funct Balance, Impaired I ADL's, Impaired Self-Care Skills Discharge Recommendations Plan/Recommendations: Continue POC Therapy Discharge Recommendati: Home & Family Treatment Plan/Plan of Care Treatment,Training & Education: Yes Patient would benefit from OT for education, treatment and training to promote independence in ADL's, mobility, safety and/or upper extremity function for ADL's. Plan of Care: ADL Retraining, Functional Mobility, UE Funct Exercise/Act Treatment Duration: Sep 28, 2020 Frequency: At least 5 of 7 days/Wk (IRF) Estimated Hrs Per Day: 1.5 hours per day Agreement: Yes Rehab Potential: Good Time/GCodes Start Time: 09:00 (1330) Stop Time: 10:00 (1400) Total Time Billed (hr/min): 90 Billed Treatment Time OT/ PT co-treat from [id number] with OT addressing UE movement, ADLs, and problem solving while PT addresses LE movement/ strength and w/c mob. 1, ADL, EX 2, WC (60) OT individual tx: 1, EX 2 (30) ROXY CALLAWAY OTR Sep 15, 2020 09:58
--- NOTE | 2020-09-15 10:00 | Physical Therapy Daily Note ---
PT Daily Note-Current Subjective Patient in bed pre tx, agrees to PT, has no pain at rest but has severe bilateral knee pain with activity. Patient is supposed to get shots in his knees this afternoon. Will be co-treating with OT due to poor patient mobility, endurance, severe pain with activity, coordinate UE and LE during activity, safety and reduce risk of falls. Appearance Patient in bed post tx with nurse call, phone, tray, all needs met. Mental Status Patient Orientation: Normal For Age Attachments: [place] Catheter Transfers SCALE: Activities may be completed with or without assistive devices. 0-Squvnzwipu-jbpqdeo completes the activity by him/herself with no assistance from a helper. 5-Set-up or Clean-up Assistance-helper sets up or cleans up; patient completes activity. [place] assists only prior to or following the activity. 4-Supervision or Touching Assistance-helper provides verbal cues and/or touching/steadying and/or contact guard assistance as patient completes activity. Assistance may be provided throughout the activity or intermittently. 3-Partial/Moderate Assistance-helper does LESS THAN HALF the effort. [place] lifts, holds or supports trunk or limbs, but provides less than half the effort. 2-Substantial/Maximal Assistance-helper does MORE THAN HALF the effort. [place] lifts or holds trunk or limbs and provides more than half the effort. 6-Itatmwabg-ybagle does ALL the effort. Patient does none of the effort to complete the activity. Or, the assistance of 2 or more helpers is required for the patient to complete the activity. If activity was not attempted, code reason: 7-Patient Refused. 9-Not Applicable-not attempted and the patient did not perform the activity before the current illness, exacerbation or injury. 10-Not Attempted due to Environmental Limitations-(lack of equipment, weather restraints, etc.). 88-Not Attempted due to Medical Conditions or Safety Concerns. Roll Left & Right (QC): 6 Sit to Lying (QC): 6 Lying to Sitting/Side of Bed(Q: 6 Sit to Stand (QC): 4 Chair/Dub-nt-Brbnv Xfer(QC): 4 Patient was able to stand pivot to WC with SBA. Patient cleans himself up a little before getting out of bed, then propels to therapy gym. Wheelchair Training Does the Pt Use a Wheelchair?: Yes Wheel 50 ft with 2 turns (QC): 4 Wheel 150 ft (QC): 4 Type of Wheelchair: Manual 100', 200' Exercises seated abdominal training, x20, LAQ x20 each side Treatments PT performed bed mobility and transfers, WC mobility, LE exercise, OT performed ADL's, UE exercise, UE positioning and safety during activity. Assessment Current Status: Fair Progress Patient states he really needs to ambulate in order to go home but can't do it until he gets the shots in his knees. Patient needs rest breaks very often due to pain and fatigue. 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 Long-Term Goals PT Long-Term Goals Time Frame: Sep 28, 2020 Roll Left & Right (QC): 6 Sit to Lying (QC): 6 Lying-Sitting on Side/Bed(QC): 6 Sit to Stand (QC): 6 Chair/Qwh-kh-Aojmq Xfer(QC): 6 Toilet Transfer (QC): 6 Car Transfer (QC): 6 Does the Patient Walk: No and Walking Goal IS indicated Walk 10 feet (QC): 6 Walk 50ft with 2 Turns (QC): 6 Walk 150 ft (QC): 6 Walking 10ft on Uneven Surface: 6 1 Step (curb) (QC): 6 4 Steps (QC): 6 12 Steps (QC): 4 Picking up an Object (QC): 4 Does the Pt use WC or Scooter?: Yes Wheel 50 feet with 2 turns (QC: 6 Type: Manual Wheel 150 feet: 6 PT Plan Problem List Problem List: Activity Tolerance, Functional Strength, Safety, Balance, Gait, Transfer Treatment/Plan Treatment Plan: Continue Plan of Care Treatment Plan: Bed Mobility, Education, Functional Activity Warner, Functional Strength, Group Therapy, Gait, Safety, Therapeutic Exercise, Transfers Treatment Duration: Sep 28, 2020 Frequency: At least 5 of 7 days/Wk (IRF) Estimated Hrs Per Day: 1.5 hours per day Patient and/or Family Agrees t: Yes Safety Risks/Education Patient Education: Transfer Techniques, Correct Positioning, W/C Management, Safety Issues Teaching Recipient: Patient Teaching Methods: Demonstration, Discussion Response to Teaching: Reinforcement Needed Time/GCodes Time In: 0900 Time Out: 1000 Total Billed Treatment Time: 60 Total Billed Treatment 1 visit FA 60' ARIEL CHU PT Sep 15, 2020 10:00
--- NOTE | 2020-09-15 10:07 | Individualized Plan of Care ---
Individualized Plan of Care Rehab Nursing IPOC Order Admission Date Sep 14, 2020 at 13:30 Current Orders Orders Admission Order(Inpt,Obs,Sdc) (09/14/20 11:44) Vital Signs: Per Unit Policy ( ,16,00 (09/14/20 11:44) Brian Clifford (09/14/20 11:44) Sequential Compression Device .admit (09/14/20 11:44) Primary Care Physician-Inpt Rehab Con (09/14/20 11:44) Rehab Nursing Orders-Ipoc (09/14/20 11:44) Physical Therapy Rehab Orders (09/14/20 11:44) Occupational Therapy Rehab Ord (09/14/20 11:44) Speech Therapy Rehab Orders (09/14/20 11:44) Cbc With Automated Diff (09/15/20 06:00) Comprehensive Metabolic Panel (09/15/20 06:00) Intake & Output 06,14,22 (09/14/20 11:44) Precautions (Aru) (09/14/20 11:44) Rehab-Intensity Of Therapy (09/14/20 11:44) Initiate Admission Nursing Pro .admission (09/14/20 11:44) Acetaminophen Tablet (Tylenol Tablet) (09/14/20 11:45) Alprazolam Tablet (Xanax Tablet) (09/14/20 11:45) Calcium Carbonate Chew Tablet (Antacid C (09/14/20 11:45) Diphenhydramine Tablet (Benadryl Tablet) (09/14/20 11:45) Docusate Sodium Capsule (Colace Capsule) (09/14/20 21:00) Docusate Sodium Capsule (Colace Capsule) (09/14/20 11:45) Bisacodyl Suppository (Dulcolax Supposit (09/14/20 11:45) Lactulose Oral Solution (Enulose Oral So (09/14/20 11:45) Na Phos/Na Biphos Enema (Fleet Enema Rudolph (09/14/20 11:45) Guaifenesin/Codeine Syrup (Robitussin Ac (09/14/20 11:45) Loperamide Tablet (Imodium Tablet) (09/14/20 11:45) Melatonin Tablet (Melatonin Tablet) (09/14/20 11:45) Polyethylene Glycol Powder Pkt (Miralax (09/14/20 21:00) Ondansetron Oral Dissolve Tab (Zofran (09/14/20 11:45) Senna S Tablet (Senokot S Tablet) (09/14/20 21:00) Initiate Admission Nursing Pro .admission (09/14/20 11:44) Enoxaparin Injection (Lovenox Injection) (09/14/20 11:45) Enoxaparin Injection (Lovenox Injection) (09/14/20 21:00) Admission Arrival Bed Request (09/14/20 12:57) Acetaminophen Tablet/Caplet (Tylenol T (09/14/20 13:45) Patient Visit (09/14/20 ) Speech Sound Lang Comp (09/14/20 ) Patient Visit (09/14/20 ) Pt Eval Moderate Complexity (09/14/20 ) Functional Activities, Ea 15 (09/14/20 ) General/Regular (09/14/20 Dinner) Acetaminophen Tablet/Caplet (Tylenol T (09/14/20 18:15) Atorvastatin Tablet (Lipitor Tablet) (09/14/20 21:00) Metoprolol Succinate (Xl) Tab (Toprol Xl (09/15/20 09:00) Therapeutic Multivitamin Tab (Vitamins, (09/15/20 07:00) Nitroglycerin 0.4 Mg Btl 25's (Nitrostat (09/14/20 18:15) Topiramate Tablet (Topamax Tablet) (09/14/20 21:00) Trazodone Tablet (Desyrel Tablet) (09/14/20 21:00) (Nf) Acidoph/L.Bulg/Bif.B/S.Thermop (Ris (09/14/20 21:00) (Nf) Alogliptin Benzoate (Nesina) (09/15/20 09:00) (Nf) Metformin Hcl (09/15/20 08:00) (Nf) Oxycodone Hcl (09/14/20 18:15) (Nf) Zinc (09/15/20 09:00) Ascorbic Acid Tablet (Vitamin C Tablet) (09/15/20 08:00) Zinc Sulfate Capsule (Zinc 50 Mg Capsule (09/15/20 08:00) Metformin Tablet (Glucophage Tablet) (09/15/20 08:00) Lactobacillus Acidophilus Cap (Acidophil (09/14/20 21:00) Oxycodone Immediate Rel Tablet (Oxyir Ta (09/14/20 18:45) Transfer - Bed/Room/Location (09/14/20 18:47) Knee, 2 Views, Bilateral (09/14/20 19:24) Consult Orthopedic Surgery (09/14/20 19:24) Consult General Surgery (09/14/20 20:18) Consent-Obtain Consent For FRIDAY (09/14/20 20:25) Methylprednisolone Acetate Inj (Depo-Med (09/14/20 20:30) Bupivacaine 0.25% Injection (Sensorcaine (09/14/20 20:30) Enoxaparin Injection (Lovenox Injection) (09/15/20 09:00) Fluconazole Tablet (Diflucan Tablet) (09/16/20 09:00) Dressing Order (Intervention) BID PRN (09/15/20 10:45) Miconazole 2% Powder (Desenex Af 2% Powd (09/15/20 11:00) Patient Visit (09/15/20 ) Functional Activities, Ea 15 (09/15/20 ) Exercise Therap, Ea 15 Min (09/15/20 ) Rehab Nursing Orders: Ongoing Assess. of Function Status, Bladder Management, Bladder Scan, Bladder Training, Bowel Management, Bowel Training, Disease Management & Educaiton, DVT Prophylaxis, Fall Prevention, Fluid/Electrolyte/Nutrition Mgmt, Infection Prevention, Medication Management & Education, Management of Risks & Complications, Management of Skin Intergrity, Nutrition Management, Pain Management, Patient/Family Support, Safety Management, Wound Management Intensity of Therapy to be met Patient to be seen: Min.3h per day/5 of 7d PT IPOC Problem List: Activity Tolerance, Functional Strength, Safety, Balance, Gait, Transfer Treatment Plan: Continue Plan of Care Bed Mobility, Education, Functional Activity Warner, Functional Strength, Group Therapy, Gait, Safety, Therapeutic Exercise, Transfers Treatment Duration: Sep 28, 2020 Frequency: At least 5 of 7 days/Wk (IRF) Estimated Hrs Per Day: 1.5 hours per day OT IPOC Problems: Decreased Activ Tolerance, Dependent Transfers, Edema, Impaired Funct Balance, Impaired I ADL's, Impaired Self-Care Skills OT Treatment, Training and Edu: Yes Plan of Care: ADL Retraining, Functional Mobility, UE Funct Exercise/Act Treatment Duration: Sep 28, 2020 Frequency: At least 5 of 7 days/Wk (IRF) Estimated Hrs Per Day: 1.[address] IPOC Speech Therapy Treatment Plan: Discontinue ST Treatment Duration: Sep 14, 2020 Frequency: 1 time per week Estimated Hrs Per Day: .25 hour per day Primary Care Physician/Case Mgmt Primary Care Physician/Case Managemen: Discharge Planning Dietitian/Goodwill Ambassador Dietitian/Goodwill Ambassador to monitor nutritional status and make changes and/or recommendations as needed and work with speech pathology on dietary upgrades as the occur. 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
--- NOTE | 2020-09-15 10:07 | PM&R Progress Note ---
Subjective HPI/CC On Admission Date Seen by Provider: Sep 15, 2020 Time Seen by Provider: 10:00 Subjective/Events-last exam 09/15/20: Patient doing well Knee injections will be performed this afternoon Dr Hooper consulted for wound care Wound vac contemplated Yeast infection noted so will initiate Diflucan and wound care will initiate topicals per protocol No issues otherwise Review of Systems General: Fatigue, Malaise Musculoskeletal: leg pain Neurological: Weakness Objective Exam Vital Signs Vital Signs Date Time Temp Pulse Resp B/P (MAP) Pulse Ox O2 Delivery O2 Flow Rate FiO2 09/15/20 21:00 Room Air 09/15/20 17:00 36.2 81 20 151/83 (105) 94 Capillary Refill : General Appearance: No Apparent Distress, WD/WN, Chronically ill, Obese HEENT: PERRL/EOMI, Normal ENT Inspection, Pharynx Normal Neck: Full Range of Motion, Normal Inspection, Non Tender, Supple, Carotid Bruit Respiratory: Chest Non Tender, Lungs Clear, Normal Breath Sounds, No Accessory Muscle Use, No Respiratory Distress Cardiovascular: Regular Rate, Rhythm, No Edema, No Gallop, No JVD, No Murmur, Normal Peripheral Pulses Gastrointestinal: Normal Bowel Sounds, No Organomegaly, No Pulsatile Mass, Non Tender, Soft Back: Normal Inspection, No CVA Tenderness, No Vertebral Tenderness Extremity: Normal Capillary Refill, Normal Inspection, Normal Range of Motion, Non Tender, No Calf Tenderness, No Pedal Edema Neurologic/Psychiatric: Alert, Oriented x3, No Motor/Sensory Deficits (unable to ambulate due to myopathy), Normal Mood/Affect Skin: Normal Color, Warm/Dry Lymphatic: No Adenopathy Results/Procedures Lab Patient resulted labs reviewed. FIM Transfers Therapy Code Descriptions/Definitions Functional [place] Measure: 0=Not Assessed/NA 4=Minimal Assistance 1=Total Assistance 5=Supervision or Setup 2=Maximal Assistance 6=Modified [place] 3=Moderate Assistance 7=Complete IndependenceSCALE: Activities may be completed with or without assistive devices. 7-Xjgzrajynu-jceitot completes the activity by him/herself with no assistance from a helper. 5-Set-up or Clean-up Assistance-helper sets up or cleans up; patient completes activity. [place] assists only prior to or following the activity. 4-Supervision or Touching Assistance-helper provides verbal cues and/or touching/steadying and/or contact guard assistance as patient completes activity. Assistance may be provided throughout the activity or intermittently. 3-Partial/Moderate Assistance-helper does LESS THAN HALF the effort. [place] lifts, holds or supports trunk or limbs, but provides less than half the effort. 2-Substantial/Maximal Assistance-helper does MORE THAN HALF the effort. [place] lifts or holds trunk or limbs and provides more than half the effort. 3-Qnzaubiub-odzrrm does ALL the effort. Patient does none of the effort to complete the activity. Or, the assistance of 2 or more helpers is required for the patient to complete the activity. If activity was not attempted, code reason: 7-Patient Refused. 9-Not Applicable-not attempted and the patient did not perform the activity before the current illness, exacerbation or injury. 10-Not Attempted due to Environmental Limitations-(lack of equipment, weather restraints, etc.). 88-Not Attempted due to Medical Conditions or Safety Concerns. Roll Left to Right (QC): 6 Sit to Lying (QC): 6 Sit to Stand (QC): 4 Chair/Yfm-hy-Vtkth Xfer(QC): 4 Car Transfer (QC): 7 (Declined due to painful WB activity for transfer. ) Gait Training Does the Patient Walk?: No and Walking Goal IS indicated Walk 10 feet (QC): 7 Walk 50 ft with 2 Turns(QC): 7 Walk 150 ft (QC): 7 Walking 10ft/uneven surface-QC: 7 Gait Assistive Device: FWW Wheelchair Training Does the Pt Use a Wheelchair?: Yes Wheel 50 ft with 2 turns (QC): 4 Wheel 150 ft (QC): 4 Type of Wheelchair: Manual Stair Training 1 Step (curb) (QC): 7 4 Steps (QC): 7 12 Steps (QC): 7 Balance Picking up an Object (QC): 88 ADL-Treatment Eating (QC): 6 Oral Hygiene (QC): 7 Shower/Bathe Self (QC): 7 Upper Body Dressing (QC): 5 Lower Body Dressing (QC): 3 On/Off Footwear (QC): 6 Toileting Hygiene (QC): 1 (Pt. has in catheter. States that he has only used a bedpan at other facility. Pt. shown and educated on BSC. Pt. unsure this will work due to scrotal size.) Assessment/Plan Assessment and Plan Assess & Plan/Chief Complaint 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 DM HTN Obesity Knee pain requiring steroid injections every 3 months by PCP Plan: IRF protocol Knee xrays Home meds Pain control 09/15/20: Knee injections Appreciate Dr Bynum and Blas Buchanan Knee xrays discussed IRF protocol Dr Hooper appreciated (1) Jose gangrene GISELLE CARBONE DO Sep 15, 2020 10:07
[2020-09-15] MEDS: MICONAZOLE 2% POWDER (DESENEX AF) 90 GM TOP SCH ×2 (12:00→20:33)
--- NOTE | 2020-09-15 13:55 | Physical Therapy Daily Note ---
PT Daily Note-Current Subjective Patient in bed pre tx, agrees to PT, has not gotten knee shots yet. Appearance Patient in bed post tx with nurse call, phone, tray, all needs met. Mental Status Patient Orientation: Normal For Age Transfers SCALE: Activities may be completed with or without assistive devices. 1-Ebrrhndfbf-mzutcgj completes the activity by him/herself with no assistance f rom a helper. 5-Set-up or Clean-up Assistance-helper sets up or cleans up; patient completes activity. [place] assists only prior to or following the activity. 4-Supervision or Touching Assistance-helper provides verbal cues and/or touching/steadying and/or contact guard assistance as patient completes activity. Assistance may be provided throughout the activity or intermittently. 3-Partial/Moderate Assistance-helper does LESS THAN HALF the effort. [place] lifts, holds or supports trunk or limbs, but provides less than half the effort. 2-Substantial/Maximal Assistance-helper does MORE THAN HALF the effort. [place] lifts or holds trunk or limbs and provides more than half the effort. 5-Qxatymgjj-hjyhwh does ALL the effort. Patient does none of the effort to complete the activity. Or, the assistance of 2 or more helpers is required for the patient to complete the activity. If activity was not attempted, code reason: 7-Patient Refused. 9-Not Applicable-not attempted and the patient did not perform the activity before the current illness, exacerbation or injury. 10-Not Attempted due to Environmental Limitations-(lack of equipment, weather restraints, etc.). 88-Not Attempted due to Medical Conditions or Safety Concerns. Exercises Supine Ex: Ankle pumps, Quad Set, Glut sets, Heel Slides, Short Arc Quads, Straight leg raise, Hip abd/add Supine Reps: 20 (2 sets) Treatments LE exercise Assessment Current Status: Fair Progress Good performance with exercises but needs frequent rest breaks due to fatigue and pain. PT Short Term Goals Short Term Goals Time Frame: Sep 21, 2020 Sit to stand: 4 Chair/ews-ta-megie transfer: 4 Walk 150 feet: 4 PT Housekeeper Head Goals Housekeeper Head Goals PT Fci Goals Time Frame: Sep 28, 2020 Roll Left & Right (QC): 6 Sit to Lying (QC): 6 Lying-Sitting on Side/Bed(QC): 6 Sit to Stand (QC): 6 Chair/Zeg-dd-Mfphe Xfer(QC): 6 Toilet Transfer (QC): 6 Car Transfer (QC): 6 Does the Patient Walk: No and Walking Goal IS indicated Walk 10 feet (QC): 6 Walk 50ft with 2 Turns (QC): 6 Walk 150 ft (QC): 6 Walking 10ft on Uneven Surface: 6 1 Step (curb) (QC): 6 4 Steps (QC): 6 12 Steps (QC): 4 Picking up an Object (QC): 4 Does the Pt use WC or Scooter?: Yes Wheel 50 feet with 2 turns (QC: 6 Type: Manual Wheel 150 feet: 6 PT Plan Problem List Problem List: Activity Tolerance, Functional Strength, Safety, Balance, Gait, Transfer, Bed Mobility, ROM Treatment/Plan Treatment Plan: Continue Plan of Care Treatment Plan: Bed Mobility, Education, Functional Activity Warner, Functional Strength, Group Therapy, Gait, Safety, Therapeutic Exercise, Transfers Treatment Duration: Sep 28, 2020 Frequency: At least 5 of 7 days/Wk (IRF) Estimated Hrs Per Day: 1.5 hours per day Patient and/or Family Agrees t: Yes Safety Risks/Education Patient Education: Correct Positioning, Safety Issues Teaching Recipient: Patient Teaching Methods: Demonstration, Discussion Response to Teaching: Reinforcement Needed Time/GCodes Time In: 1300 Time Out: 1330 Total Billed Treatment Time: 30 Total Billed Treatment 1 visit EX 30' ARIEL CHU PT Sep 15, 2020 13:55
[2020-09-15 17:00] VITALS: BP 151/83
--- NOTE | 2020-09-15 17:09 | Progress Note - Surgery ---
YUSRA TIM,MED STUDENT 09/15/209: Subjective Date Seen by a Provider: Sep 15, 2020 Time Seen by a Provider: 17:03 Subjective/Events-last exam Pt seen and examined this evening. States he is feeling well. Denies any pain in his scrotum and reports decreased edema in the area. Reports bilateral knee pain and states he received steroid injections for these today. Denies fever, chills, abd pain, n/v, constipation, diarrhea, chest pain or SOB. Reports coughing up phlegm occasionally. Review of Systems General: No Chills HEENT: No Head Aches Pulmonary: No Dyspnea; Cough Cardiovascular: No: Chest Pain, Palpitations Gastrointestinal: No: Nausea, Vomiting, Abdominal Pain, Diarrhea, Constipation Musculoskeletal: leg pain (Bilateral knees) Neurological: No: Weakness, Numbness, Confusion Objective Exam Vital Signs Date Time Temp Pulse Resp B/P (MAP) Pulse Ox O2 Delivery O2 Flow Rate FiO2 09/15/20 17:00 36.2 81 20 151/83 (105) 94 Room Air 09/15/20 08:12 140/75 (96) 09/15/20 08:00 Room Air 09/15/20 05:54 36.2 76 20 138/83 (101) 96 Room Air 09/14/20 20:00 Room Air I & O 09/15/20 07:00 Intake Total 2000 ml Output Total 3900 ml Balance -1900 ml Capillary Refill : General Appearance: No Apparent Distress, WD/WN, Obese HEENT: PERRL/EOMI, Moist Mucous Membranes Respiratory: Lungs Clear, No Accessory Muscle Use, No Respiratory Distress Cardiovascular: Regular Rate, Rhythm, No Murmur Peripheral Pulses: 2+ Dorsalis Pedis (R), 2+ Left Dors-Pedis (L), 2+ Radial Pulses (R), 2+ Radial Pulses (L) Gastrointestinal: normal bowel sounds, non tender, soft Neurologic/Psychiatric: Alert, Oriented x3, Normal Mood/Affect Skin: Normal Color, Warm/Dry, Other (Scrotum dressing c/d/i) Results Lab Laboratory Tests 09/15/20 05:50: White Blood Count 8.3, Red Blood Count 4.07L, Hemoglobin 12.2L, Hematocrit 37L, Mean Corpuscular Volume 91, Mean Corpuscular Hemoglobin 30, Mean Corpuscular Hemoglobin Concent 33, Red Cell Distribution Width 13.1, Platelet Count 290, Mean Platelet Volume 10.2, Immature Granulocyte % (Auto) 1, Neutrophils (%) (Auto) 51, Lymphocytes (%) (Auto) 33, Monocytes (%) (Auto) 10, Eosinophils (%) (Auto) 5, Basophils (%) (Auto) 1, Neutrophils # (Auto) 4.2, Lymphocytes # (Auto) 2.8, Monocytes # (Auto) 0.9, Eosinophils # (Auto) 0.4H, Basophils # (Auto) 0.0, Immature Granulocyte # (Auto) 0.1, Sodium Level 136, Potassium Level 3.7, Chloride Level 104, Carbon Dioxide Level 23, Anion Gap 9, Blood Urea Nitrogen 12, Creatinine 0.90, Estimat Glomerular Filtration Rate > 60, BUN/Creatinine Rat io 13, Glucose Level 110H, Calcium Level 9.1, Corrected Calcium 9.3, Total Bilirubin 0.6, Aspartate Amino Transf (AST/SGOT) 57H, Alanine Aminotransferase (ALT/SGPT) 67H, Alkaline Phosphatase 74, Total Protein 7.4, Albumin 3.8 Assessment/Plan Assessment/Plan Assessment/Plan Fourniers gangrene- s/p debridement Poorly controlled DM HTN Continue local wound care with daily dressing changes Pain control, glucose control, PT/OT BALAJI HOOPER DO 09/15/20 1751: Subjective Time Seen by a Provider: 17:08 Subjective/Events-last exam Pt seen and examined, states he is doing better and thinks scrotal swelling has improved. His main complaint was of knee pain. Review of Systems General: No Chills HEENT: No Head Aches Pulmonary: No Dyspnea; Cough Cardiovascular: No: Chest Pain, Palpitations Gastrointestinal: No: Nausea, Vomiting, Abdominal Pain, Diarrhea, Constipation Objective Exam General Appearance: No Apparent Distress, Obese (super morbidly) HEENT: PERRL/EOMI, Moist Mucous Membranes Respiratory: Lungs Clear, No Accessory Muscle Use, No Respiratory Distress Cardiovascular: Regular Rate, Rhythm, No Murmur Gastrointestinal: normal bowel sounds, non tender, soft Neurologic/Psychiatric: Alert, Oriented x3 Skin: Other (Scrotum dressing c/d/i, erythema in inguinal creases) Assessment/Plan Assessment/Plan Assessment/Plan Fourniers gangrene- s/p debridement Non-healing wound Candidal infection Poorly controlled DM HTN Continue local wound care with daily dressing changes, spoke with wound care nurse and added Nystatin powder to be place in inguinal creases. Pain control, glucose control, PT/OT Supervisory-Addendum Brief Verification & Attestation Participated in pt care: history, MDM, physical Personally performed: exam, history, MDM Care discussed with: Medical Student Procedures: n/a Verification and Attestation of Medical Student E/M Service A medical student performed and documented this service. I then reviewed and verified all information documented by the medical student and made modifications to such information, when appropriate. I personally performed a physical exam, medical decision making and then discussed any differences between the notes and made revisions as necessary to create one note. Balaji Hooper , 09/15/20 , 17:51 YUSRA TIM,MED STUDENT Sep 15, 2020 17:09 BALAJI HOOPER DO Sep 15, 2020 17:51
[2020-09-15] MEDS: traZODone 100 MG (DESYREL) TAB PO SCH (20:32)
--- NOTE | 2020-09-16 01:36 | CONSULTATION REPORT ---
DATE OF SERVICE: INPATIENT CONSULT ROOM #222. REASON FOR CONSULTATION: Consult is issued for bilateral knee injections. SERVICE: Orthopedic surgery. ADMITTING PHYSICIAN: Joyce Guerrero DO HISTORY OF PRESENT ILLNESS: This is a 55-year-old male who has a longstanding history of bilateral knee osteoarthritis. He reports that he receives intra-articular corticosteroid injection of his bilateral knees every 3 months by his primary care provider. He reports that he was due for injection this past July and has reported markedly increased symptoms such as pain, swelling and stiffness since missing last month treatment. This patient otherwise reports no side effects from previous injections and was requesting a treatment. He has otherwise had no surgery on his knees. PAST MEDICAL HISTORY: He has a past medical history of hypertension, dyslipidemia, osteoarthritis and diabetes. PAST SURGICAL HISTORY: Includes ear surgery. SOCIAL HISTORY: He is a nonsmoker, uses no tobacco products and he is an occasional beer drinker. CURRENT MEDICATIONS: Include acidophilus, , vitamin C, atorvastatin, metformin, metoprolol, vitamin supplement, topiramate, trazodone, and zinc with p.r.n. medications included Tylenol, nitroglycerin, and oxycodone. ALLERGIES: He has no known drug allergies. LABORATORY DATA: Recent laboratory work included a blood glucose of 108. FAMILY HISTORY: Includes asthma and osteoarthritis. PHYSICAL EXAMINATION: Bilateral knee examination today shows intact flexion and extension. He demonstrated mild effusion, no warmth or erythema or skin changes were noted. He had tenderness to palpation throughout the medial compartments, most notably and crepitus was noted with range of motion. RADIOGRAPHS: X-rays showed evidence of moderate to severe degenerative changes, no acute changes noted. IMPRESSION: Bilateral knee osteoarthritis. PLAN: After informed consent was signed and placed on the chart. We further discussed risks of infection including elevated blood sugars and risk of infection and he verbalized understanding. Under sterile conditions with alcohol and Betadine prep, the bilateral knees were injected with 80 mg of Depo-Medrol and 3 mL of 0.25% Marcaine. The patient tolerated the injections well and standard post-injection precautions were discussed, and ice treatments were recommended. We will otherwise plan to recheck the patient as needed. Dr. Bynum was also informed of this consultation and the plan. Job ID: [id number] DocumentID: [id number] Dictated Date: 09/15/2020 16:49:44 Community Recreation Programmer Date: 09/16/2020 01:34:51 Dictated By: YOSI NOLASCO
[2020-09-16 06:00] VITALS: BP 161/87
[2020-09-16] MEDS: MULTIVIT W/MINERALS TAB (THERAGRAN M) PO SCH (06:29)
--- NOTE | 2020-09-16 07:25 | PM&R Progress Note ---
Subjective HPI/CC On Admission Date Seen by Provider: Sep 16, 2020 Time Seen by Provider: 12:15 Subjective/Events-last exam 09/16/20: Patient denies pain. Daughter at bedside Appreciate Dr Hopoer guidance on wound Changed dressing today Knee injections went well yesterday 4600 output in lama 09/15/20: Patient doing well Knee injections will be performed this afternoon Dr Hooper consulted for wound care Wound vac contemplated Yeast infection noted so will initiate Diflucan and wound care will initiate topicals per protocol No issues otherwise Review of Systems General: Fatigue, Malaise Gastrointestinal: Abdominal Pain Objective Exam Vital Signs Vital Signs Date Time Temp Pulse Resp B/P (MAP) Pulse Ox O2 Delivery O2 Flow Rate FiO2 09/16/20 16:00 36.0 101 18 147/81 (103) 96 Room Air Capillary Refill : General Appearance: No Apparent Distress, WD/WN, Chronically ill, Obese HEENT: PERRL/EOMI, Normal ENT Inspection, Pharynx Normal Neck: Full Range of Motion, Normal Inspection, Non Tender, Supple, Carotid Bruit Respiratory: Chest Non Tender, Lungs Clear, Normal Breath Sounds, No Accessory Muscle Use, No Respiratory Distress Cardiovascular: Regular Rate, Rhythm, No Edema, No Gallop, No JVD, No Murmur, N ormal Peripheral Pulses Gastrointestinal: Normal Bowel Sounds, No Organomegaly, No Pulsatile Mass, Non Tender, Soft Back: Normal Inspection, No CVA Tenderness, No Vertebral Tenderness Extremity: Normal Capillary Refill, Normal Inspection, Normal Range of Motion, Non Tender, No Calf Tenderness, No Pedal Edema Neurologic/Psychiatric: Alert, Oriented x3, No Motor/Sensory Deficits (unable to ambulate due to myopathy), Normal Mood/Affect Skin: Normal Color, Warm/Dry Lymphatic: No Adenopathy Results/Procedures Lab Patient resulted labs reviewed. FIM Transfers Therapy Code Descriptions/Definitions Functional [place] Measure: 0=Not Assessed/NA 4=Minimal Assistance 1=Total Assistance 5=Supervision or Setup 2=Maximal Assistance 6=Modified [place] 3=Moderate Assistance 7=Complete IndependenceSCALE: Activities may be completed with or without assistive devices. 0-Fjlfevbvdv-duxtzuq completes the activity by him/herself with no assistance from a helper. 5-Set-up or Clean-up Assistance-helper sets up or cleans up; patient completes activity. [place] assists only prior to or following the activity. 4-Supervision or Touching Assistance-helper provides verbal cues and/or touching/steadying and/or contact guard assistance as patient completes activity. Assistance may be provided throughout the activity or intermittently. 3-Partial/Moderate Assistance-helper does LESS THAN HALF the effort. [place] lifts, holds or supports trunk or limbs, but provides less than half the effort. 2-Substantial/Maximal Assistance-helper does MORE THAN HALF the effort. [place] lifts or holds trunk or limbs and provides more than half the effort. 4-Maotcrgcj-eqizhc does ALL the effort. Patient does none of the effort to complete the activity. Or, the assistance of 2 or more helpers is required for the patient to complete the activity. If activity was not attempted, code reason: 7-Patient Refused. 9-Not Applicable-not attempted and the patient did not perform the activity before the current illness, exacerbation or injury. 10-Not Attempted due to Environmental Limitations-(lack of equipment, weather restraints, etc.). 88-Not Attempted due to Medical Conditions or Safety Concerns. Roll Left to Right (QC): 6 Sit to Lying (QC): 6 Sit to Stand (QC): 4 Chair/Zcj-jy-Wggre Xfer(QC): 4 Car Transfer (QC): 7 (Declined due to painful WB activity for transfer. ) Gait Training Does the Patient Walk?: No and Walking Goal IS indicated Walk 10 feet (QC): 7 Walk 50 ft with 2 Turns(QC): 7 Walk 150 ft (QC): 7 Walking 10ft/uneven surface-QC: 7 Gait Assistive Device: FWW Wheelchair Training Does the Pt Use a Wheelchair?: Yes Wheel 50 ft with 2 turns (QC): 4 Wheel 150 ft (QC): 4 Type of Wheelchair: Manual Stair Training 1 Step (curb) (QC): 7 4 Steps (QC): 7 12 Steps (QC): 7 Balance Picking up an Object (QC): 88 ADL-Treatment Eating (QC): 6 Oral Hygiene (QC): 7 Shower/Bathe Self (QC): 7 Upper Body Dressing (QC): 5 Lower Body Dressing (QC): 3 On/Off Footwear (QC): 6 Toileting Hygiene (QC): 1 (Pt. has in catheter. States that he has only used a bedpan at other facility. Pt. shown and educated on BSC. Pt. 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
--- NOTE | 2020-09-16 08:38 | Progress Note - Surgery ---
YUSRA TIM,MED STUDENT 09/16/20 0838: Subjective Date Seen by a Provider: Sep 16, 2020 Time Seen by a Provider: 07:57 Subjective/Events-last exam Pt seen and examined this AM. States he is feeling well and is not in any pain but has not gotten out of bed yet this morning. States he did have night sweats last night and gets these a few times a month. Had steroid injections in bilateral knees yesterday. Review of Systems General: Night Sweats HEENT: No Head Aches Pulmonary: No Dyspnea, No Cough Cardiovascular: No: Chest Pain Gastrointestinal: No: Nausea, Vomiting, Abdominal Pain Genitourinary: No Dysuria Musculoskeletal: leg pain (bilateral knees with activity) Objective Exam Vital Signs Date Time Temp Pulse Resp B/P (MAP) Pulse Ox O2 Delivery O2 Flow Rate FiO2 09/16/20 06:00 36.3 80 18 161/87 (111) 93 Room Air 09/15/20 21:00 Room Air 09/15/20 17:00 36.2 81 20 151/83 (105) 94 Room Air I & O 09/16/20 07:00 Intake Total 2700 ml Output Total 6175 ml Balance -3475 ml Capillary Refill : General Appearance: No Apparent Distress, Obese HEENT: PERRL/EOMI, Moist Mucous Membranes Respiratory: Lungs Clear, No Accessory Muscle Use, No Respiratory Distress Cardiovascular: Regular Rate, Rhythm, No Murmur Peripheral Pulses: 2+ Dorsalis Pedis (R), 2+ Left Dors-Pedis (L), 2+ Radial Pulses (R), 2+ Radial Pulses (L) Gastrointestinal: normal bowel sounds, non tender, soft Neurologic/Psychiatric: Alert, Oriented x3, Normal Mood/Affect Skin: Normal Color, Warm/Dry Assessment/Plan Assessment/Plan Assessment/Plan Fourniers gangrene- s/p debridement Non-healing wound Candidal infection Poorly controlled DM HTN Osteoarthritis of Bilateral knees Continue local wound care with daily dressing changes Nystatin powder for in inguinal creases Pain control, glucose control, PT/OT BALAJI HOOPER DO 09/16/20 1602: Subjective Time Seen by a Provider: 15:40 Subjective/Events-last exam Pt seen and examined, states he is feeling better and thinks swelling is down. He took pictures on his phone of the wound. Review of Systems General: Night Sweats HEENT: No Head Aches Pulmonary: No Dyspnea, No Cough Cardiovascular: No: Chest Pain Gastrointestinal: Other (has lama in place); No: Nausea, Vomiting, Abdominal Pain Genitourinary: No Dysuria Objective Exam General Appearance: No Apparent Distress, Obese (super morbidly obese) HEENT: Moist Mucous Membranes Respiratory: Lungs Clear, No Accessory Muscle Use, No Respiratory Distress Cardiovascular: Regular Rate, Rhythm, No Murmur Gastrointestinal: non tender, soft, no organomegaly Skin: Other (decreased erythema in inguinal creases, good granulation tissue on scrotum - no erythema or signs of infection) Assessment/Plan Assessment/Plan Assessment/Plan Fourniers gangrene- s/p debridement Non-healing wound Candidal infection Poorly controlled DM HTN Osteoarthritis of Bilateral knees Continue local wound care with daily dressing changes Nystatin powder for in inguinal creases Pain control, glucose control, PT/OT Supervisory-Addendum Brief Verification & Attestation Participated in pt care: history, MDM, physical Personally performed: exam, history, MDM Care discussed with: Medical Student Procedures: n/a Verification and Attestation of Medical Student E/M Service A medical student performed and documented this service. I then reviewed and verified all information documented by the medical student and made modifications to such information, when appropriate. I personally performed a physical exam, medical decision making and then discussed any differences between the notes and made revisions as necessary to create one note. Balaji Hooper , 09/16/20 , 16:02 YUSRA TIM,MED STUDENT Sep 16, 2020 08:38 BALAJI HOOPER DO Sep 16, 2020 16:02
[2020-09-16] MEDS: DOCUSATE SODIUM 100 MG (COLACE) CAP PO SCH ×2 (08:54→20:20)
[2020-09-16] MEDS: metFORMIN 500 MG (GLUCOPHAGE) TAB PO SCH ×2 (08:54→17:55)
[2020-09-16] MEDS: ASCORBIC ACID (VIT C) 500 MG TABLET PO SCH ×2 (08:54→17:55)
[2020-09-16] MEDS: ENOXAPARIN 60 MG/0.6 ML (LOVENOX) SYR SC SCH ×2 (08:54→20:20)
[2020-09-16] MEDS: toPIRamate 25 MG (TOPAMAX) TAB PO SCH ×2 (08:54→20:19)
[2020-09-16] MEDS: LACTOBACILLUS ACIDOPHILUS (PROBIOTIC) CAPSULE PO SCH ×2 (08:54→20:19)
[2020-09-16] MEDS: meTOprolol SUCCINATE 100 MG (TOPROL XL) TAB PO SCH (08:54)
[2020-09-16] MEDS: ZINC SULFATE 220 MG CAPSULE PO SCH (08:55)
[2020-09-16] MEDS: MICONAZOLE 2% POWDER (DESENEX AF) 90 GM TOP SCH ×2 (08:55→20:23)
[2020-09-16] MEDS: fluCOnazole (DIFLUCAN) 100 MG TAB PO SCH (08:55)
[2020-09-16] MEDS: SENNA W/DOCUSATE (SENOKOT S) TABLET PO SCH ×2 (09:04→20:20)
[2020-09-16] MEDS: polyethylene glycoL POWDER 17 GM (MIRALAX) PACK PO SCH ×2 (09:04→20:20)
--- NOTE | 2020-09-16 11:42 | Physical Therapy Daily Note ---
PT Daily Note-Current Subjective Pt in bed, agreeable. Reports he did receive knee injections yesterday "But I haven't tested them out yet". Upon standing Pt states, "That is so much better". Due to positioning on NuStep (hip ER), Pt bumping knee on arm, requested to scoot seat back. At longer seat position, Pt reported (L) knee pain under the patella. Not rated but grimacing. Pt declined to attempt standing in // bars or ambulation. Mental Status Patient Orientation: Person, Place, Time, Situation Transfers SCALE: Activities may be completed with or without assistive devices. 6-Odmcvozlqm-jdmqbhp completes the activity by him/herself with no assistance from a helper. 5-Set-up or Clean-up Assistance-helper sets up or cleans up; patient completes activity. [place] assists only prior to or following the activity. 4-Supervision or Touching Assistance-helper provides verbal cues and/or touching/steadying and/or contact guard assistance as patient completes activity. Assistance may be provided throughout the activity or intermittently. 3-Partial/Moderate Assistance-helper does LESS THAN HALF the effort. [place] lifts, holds or supports trunk or limbs, but provides less than half the effort. 2-Substantial/Maximal Assistance-helper does MORE THAN HALF the effort. [place] lifts or holds trunk or limbs and provides more than half the effort. 8-Iznbtvnre-pojdwf does ALL the effort. Patient does none of the effort to complete the activity. Or, the assistance of 2 or more helpers is required for the patient to complete the activity. If activity was not attempted, code reason: 7-Patient Refused. 9-Not Applicable-not attempted and the patient did not perform the activity before the current illness, exacerbation or injury. 10-Not Attempted due to Environmental Limitations-(lack of equipment, weather restraints, etc.). 88-Not Attempted due to Medical Conditions or Safety Concerns. Sit to Lying (QC): 4 Lying to Sitting/Side of Bed(Q: 4 Sit to Stand (QC): 4 Chair/Otg-jk-Rirxi Xfer(QC): 4 HOB raised for supine<->sit TFRs. SPT with heavy use of UE on bed rails, [facility] arms for transfers. Flexed posture, knees and hips in flexion. Weight Bearing Right Lower Extremity: Right Full Weight Bearing Left Lower Extremity: Left Full Weight Bearing Gait Training Does the Patient Walk?: No and Walking Goal IS indicated Wheelchair Training Does the Pt Use a Wheelchair?: Yes Wheel 50 ft with 2 turns (QC): 4 Type of Wheelchair: Manual VCS to remember brakes prior to transfers. Exercises NuStep Minutes: 5 NuStep Workload: 4 Treatments Transfers, [facility] mobility, NuStep for knee ROM, LE strengthening. NuStep termin ated due to increased (L) knee pain. Pt returned to bed with all needs met. Assessment Current Status: Poor Progress Pt tolerated fair. Continues to self limit due to knee pain. PT Short Term Goals Short Term Goals Time Frame: Sep 21, 2020 Sit to stand: 4 Chair/spr-nl-ynwwi transfer: 4 Walk 150 feet: 4 PT Esthetician Permanent Makeup Artist Goals Prison Goals PT Prison Goals Time Frame: Sep 28, 2020 Roll Left & Right (QC): 6 Sit to Lying (QC): 6 Lying-Sitting on Side/Bed(QC): 6 Sit to Stand (QC): 6 Chair/Gts-ny-Leyek Xfer(QC): 6 Toilet Transfer (QC): 6 Car Transfer (QC): 6 Does the Patient Walk: No and Walking Goal IS indicated Walk 10 feet (QC): 6 Walk 50ft with 2 Turns (QC): 6 Walk 150 ft (QC): 6 Walking 10ft on Uneven Surface: 6 1 Step (curb) (QC): 6 4 Steps (QC): 6 12 Steps (QC): 4 Picking up an Object (QC): 4 Does the Pt use WC or Scooter?: Yes Wheel 50 feet with 2 turns (QC: 6 Type: Manual Wheel 150 feet: 6 PT Plan Problem List Problem List: Activity Tolerance, Functional Strength, Safety, Balance, Gait, Transfer, Bed Mobility, ROM Treatment/Plan Treatment Plan: Continue Plan of Care Treatment Plan: Bed Mobility, Education, Functional Activity [place], Functional Strength, Group Therapy, Gait, Safety, Therapeutic Exercise, Transfers Treatment Duration: Sep 28, 2020 Frequency: At least 5 of 7 days/Wk (IRF) Estimated Hrs Per Day: 1.5 hours per day Patient and/or Family Agrees t: Yes Time/GCodes Time In: 809 Time Out: 08 Total Billed Treatment Time: 24 Total Billed Treatment 1, FA x 24' CONNOR GARCIA DPT Sep 16, 2020 11:42
[2020-09-16 16:00] VITALS: BP 147/81
[2020-09-16] MEDS: traZODone 100 MG (DESYREL) TAB PO SCH (20:20)
[2020-09-17 05:00] VITALS: BP 169/93
[2020-09-17] MEDS: MULTIVIT W/MINERALS TAB (THERAGRAN M) PO SCH (06:15)
[2020-09-17] MEDS: ENOXAPARIN 60 MG/0.6 ML (LOVENOX) SYR SC SCH ×2 (08:21→20:46)
[2020-09-17] MEDS: metFORMIN 500 MG (GLUCOPHAGE) TAB PO SCH ×2 (08:21→17:04)
[2020-09-17] MEDS: ASCORBIC ACID (VIT C) 500 MG TABLET PO SCH ×2 (08:22→17:04)
[2020-09-17] MEDS: ZINC SULFATE 220 MG CAPSULE PO SCH (08:22)
[2020-09-17] MEDS: meTOprolol SUCCINATE 100 MG (TOPROL XL) TAB PO SCH (08:22)
[2020-09-17] MEDS: toPIRamate 25 MG (TOPAMAX) TAB PO SCH ×2 (08:22→20:46)
[2020-09-17] MEDS: LACTOBACILLUS ACIDOPHILUS (PROBIOTIC) CAPSULE PO SCH ×2 (08:22→20:46)
[2020-09-17] MEDS: fluCOnazole (DIFLUCAN) 100 MG TAB PO SCH (08:22)
[2020-09-17] MEDS: MICONAZOLE 2% POWDER (DESENEX AF) 90 GM TOP SCH ×2 (09:22→20:47)
[2020-09-17] MEDS: ACETAMINOPHEN 325 MG TABLET PO PRN (09:24)
[2020-09-17] MEDS: polyethylene glycoL POWDER 17 GM (MIRALAX) PACK PO SCH ×2 (09:55→20:57)
[2020-09-17] MEDS: SENNA W/DOCUSATE (SENOKOT S) TABLET PO SCH ×2 (09:55→20:58)
[2020-09-17] MEDS: DOCUSATE SODIUM 100 MG (COLACE) CAP PO SCH ×2 (09:55→20:57)
--- NOTE | 2020-09-17 10:23 | Progress Note - Surgery ---
YUSRA TIM,MED STUDENT 09/17/20 1023: Subjective Date Seen by a Provider: Sep 17, 2020 Time Seen by a Provider: 09:47 Subjective/Events-last exam Pt seen and examined this AM. Feeling well. Reports pain in his left knee. Denies fever, chills, SOB, n/v or pain in scrotal area. Review of Systems General: Night Sweats Pulmonary: No Dyspnea; Cough Cardiovascular: No: Chest Pain Gastrointestinal: No: Nausea, Vomiting, Abdominal Pain Musculoskeletal: leg pain (L knee) Objective Exam Vital Signs Date Time Temp Pulse Resp B/P (MAP) Pulse Ox O2 Delivery O2 Flow Rate FiO2 09/17/20 05:00 36.2 81 15 169/93 (118) 95 Room Air 09/16/20 20:00 Room Air 09/16/20 16:00 36.0 101 18 147/81 (103) 96 Room Air I & O 09/17/20 07:00 Intake Total 3510 ml Output Total 3025 ml Balance 485 ml Capillary Refill : General Appearance: No Apparent Distress, Obese HEENT: PERRL/EOMI Respiratory: Lungs Clear, No Accessory Muscle Use, No Respiratory Distress Cardiovascular: Regular Rate, Rhythm, No Murmur Gastrointestinal: non tender, soft Extremity: Non Tender Neurologic/Psychiatric: Alert, Oriented x3, Normal Mood/Affect Skin: Normal Color, Warm/Dry, Other (dressing to scrotum c/d/i, lama in place) Assessment/Plan Assessment/Plan Assessment/Plan Fourniers gangrene- s/p debridement Non-healing wound Candidal infection Poorly controlled DM HTN Osteoarthritis of Bilateral knees Continue local wound care with daily dressing changes Continue Nystatin powder for in inguinal creases Pain control, glucose control, PT/OT BALAJI HOOPER DO 09/17/202025: Subjective Time Seen by a Provider: 11:23 Subjective/Events-last exam Pt seen and examined, states dressing change went very well. He thinks redness, pain and swelling are better. Review of Systems General: Night Sweats Pulmonary: No Dyspnea; Cough Cardiovascular: No: Chest Pain Gastrointestinal: No: Nausea, Vomiting, Abdominal Pain Musculoskeletal: leg pain (L knee) Objective Exam General Appearance: No Apparent Distress, Obese (super morbidly) Respiratory: Lungs Clear, No Accessory Muscle Use, No Respiratory Distress Cardiovascular: Regular Rate, Rhythm, No Murmur Gastrointestinal: non tender, soft Neurologic/Psychiatric: Alert, Oriented x3 Skin: Other (dressing to scrotum c/d/i, lama in place. almost no erythema in inguinal creases) Assessment/Plan Assessment/Plan Assessment/Plan Fourniers gangrene- s/p debridement Non-healing wound Candidal infection Poorly controlled DM HTN Osteoarthritis of Bilateral knees Continue local wound care with daily dressing changes, Continue Nystatin powder for in inguinal creases Pain control, glucose control, PT/OT. Would recommend d/c'ing lama. Supervisory-Addendum Brief Verification & Attestation Participated in pt care: history, MDM, physical Personally performed: exam, history, MDM Care discussed with: Medical Student Procedures: n/a Verification and Attestation of Medical Student E/M Service A medical student performed and documented this service. I then reviewed and verified all information documented by the medical student and made modifications to such information, when appropriate. I personally performed a physical exam, medical decision making and then discussed any differences between the notes and made revisions as necessary to create one note. Balaji Hooper , 09/17/20 , 20:26 YUSRA TIM,MED STUDENT Sep 17, 2020 10:23 BALAJI HOOPER DO Sep 17, 2020 20:26
--- NOTE | 2020-09-17 12:44 | PM&R Progress Note ---
Subjective HPI/CC On Admission Date Seen by Provider: Sep 17, 2020 Time Seen by Provider: 12:45 Subjective/Events-last exam 09/17/20: Full code now since he was DNR when they contemplated removing his penis and testicles so changed to full code in EMR Dr Hooper saw the patient DC catheter tomorrow and if retention occurs will consult Urology BM treatment 09/16/20: Patient denies pain. Daughter at bedside Appreciate Dr Hooper guidance on wound Changed dressing today Knee injections went well yesterday 4600 output in lama 09/15/20: Patient doing well Knee injections will be performed this afternoon Dr Hooper consulted for wound care Wound vac contemplated Yeast infection noted so will initiate Diflucan and wound care will initiate topicals per protocol No issues otherwise Review of Systems General: Fatigue, Malaise Gastrointestinal: Abdominal Pain Neurological: Weakness Objective Exam Vital Signs Vital Signs Date Time Temp Pulse Resp B/P (MAP) Pulse Ox O2 Delivery O2 Flow Rate FiO2 09/17/20 08:00 Room Air 09/17/20 05:00 36.2 81 15 169/93 (118) 95 Capillary Refill : General Appearance: No Apparent Distress, Obese HEENT: PERRL/EOMI Respiratory: Lungs Clear, No Accessory Muscle Use, No Respiratory Distress Cardiovascular: Regular Rate, Rhythm, No Murmur Gastrointestinal: Normal Bowel Sounds, No Organomegaly, No Pulsatile Mass, Non Tender, Soft Back: Normal Inspection, No CVA Tenderness, No Vertebral Tenderness Extremity: Non Tender Neurologic/Psychiatric: Alert, Oriented x3, Normal Mood/Affect Skin: Normal Color, Warm/Dry, Other (dressing to scrotum c/d/i, lama in place) Results/Procedures Lab Patient resulted labs reviewed. FIM Transfers Therapy Code Descriptions/Definitions Functional [place] Measure: 0=Not Assessed/NA 4=Minimal Assistance 1=Total Assistance 5=Supervision or Setup 2=Maximal Assistance 6=Modified [place] 3=Moderate Assistance 7=Complete IndependenceSCALE: Activities may be completed with or without assistive devices. 8-Uojijhhrov-bfbjbqf completes the activity by him/herself with no assistance from a helper. 5-Set-up or Clean-up Assistance-helper sets up or cleans up; patient completes activity. [place] assists only prior to or following the activity. 4-Supervision or Touching Assistance-helper provides verbal cues and/or touching/steadying and/or contact guard assistance as patient completes activity. Assistance may be provided throughout the activity or intermittently. 3-Partial/Moderate Assistance-helper does LESS THAN HALF the effort. [place] lifts, holds or supports trunk or limbs, but provides less than half the effort. 2-Substantial/Maximal Assistance-helper does MORE THAN HALF the effort. [place] lifts or holds trunk or limbs and provides more than half the effort. 5-Qtngvbdsg-pytehe does ALL the effort. Patient does none of the effort to complete the activity. Or, the assistance of 2 or more helpers is required for the patient to complete the activity. If activity was not attempted, code reason: 7-Patient Refused. 9-Not Applicable-not attempted and the patient did not perform the activity before the current illness, exacerbation or injury. 10-Not Attempted due to Environmental Limitations-(lack of equipment, weather restraints, etc.). 88-Not Attempted due to Medical Conditions or Safety Concerns. Roll Left to Right (QC): 6 Sit to Lying (QC): 4 Sit to Stand (QC): 4 Chair/Nmh-pz-Ushpx Xfer(QC): 4 Car Transfer (QC): 7 (Declined due to painful WB activity for transfer. ) Gait Training Does the Patient Walk?: No and Walking Goal IS indicated Walk 10 feet (QC): 7 Walk 50 ft with 2 Turns(QC): 7 Walk 150 ft (QC): 7 Walking 10ft/uneven surface-QC: 7 Gait Assistive Device: FWW Wheelchair Training Does the Pt Use a Wheelchair?: Yes Wheel 50 ft with 2 turns (QC): 4 Wheel 150 ft (QC): 4 Type of Wheelchair: Manual Stair Training 1 Step (curb) (QC): 7 4 Steps (QC): 7 12 Steps (QC): 7 Balance Picking up an Object (QC): 88 ADL-Treatment Eating (QC): 6 Oral Hygiene (QC): 7 Shower/Bathe Self (QC): 7 Upper Body Dressing (QC): 5 Lower Body Dressing (QC): 3 On/Off Footwear (QC): 6 Toileting Hygiene (QC): 1 (Pt. has in catheter. States that he has only used a bedpan at other facility. Pt. shown and educated on BSC. Pt. 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
[2020-09-17 17:01] VITALS: BP 147/76
[2020-09-17] MEDS: traZODone 100 MG (DESYREL) TAB PO SCH (20:46)
[2020-09-18 05:37] LABS: BASOPHILS # (AUTO) 0.1 10^3/uL (0.0-0.1); BASOPHILS % (AUTO) 1 % (0-10); EOSINOPHILS # (AUTO) 0.1 10^3/uL (0.0-0.3); EOSINOPHILS % (AUTO) 1 % (0-10); HEMATOCRIT 37 % (40-54); HEMOGLOBIN 12.2 g/dL (13.3-17.7); LYMPHOCYTES # (AUTO) 2.8 10^3/uL (1.0-4.0); LYMPHOCYTES % (AUTO) 33 % (12-44); MEAN CORPUSCULAR HEMOGLOBIN 30 pg (25-34); MEAN CORPUSCULAR HGB CONC 33 g/dL (32-36); MEAN CORPUSCULAR VOLUME 91 fL (80-99); MEAN PLATELET VOLUME 10.6 fL (9.0-12.2); MONOCYTES # (AUTO) 0.9 10^3/uL (0.0-1.0); MONOCYTES % (AUTO) 10 % (0-12); NEUTROPHILS # (AUTO) 4.6 10^3/uL (1.8-7.8); NEUTROPHILS % (AUTO) 54 % (42-75); PLATELET COUNT 254 10^3/uL (130-400); WHITE BLOOD COUNT 8.6 10^3/uL (4.3-11.0)
[2020-09-18 05:45] VITALS: BP 159/89
[2020-09-18 05:57] LABS: ALBUMIN 3.8 GM/DL (3.2-4.5); CHLORIDE 106 MMOL/L (98-107)
[2020-09-18 05:58] LABS: POTASSIUM 4.2 MMOL/L (3.6-5.0); SODIUM 138 MMOL/L (135-145)
[2020-09-18 05:59] LABS: CALCIUM 8.9 MG/DL (8.5-10.1)
[2020-09-18 06:00] LABS: GLUCOSE 147 MG/DL (70-105); TOTAL PROTEIN 7.1 GM/DL (6.4-8.2)
[2020-09-18 06:01] LABS: CARBON DIOXIDE 22 MMOL/L (21-32)
[2020-09-18 06:02] LABS: BILIRUBIN,TOTAL 0.4 MG/DL (0.1-1.0)
[2020-09-18 06:03] LABS: ALKALINE PHOSPHATASE 73 U/L (40-136)
[2020-09-18 06:04] LABS: CREATININE SERUM 0.83 MG/DL (0.60-1.30); GFR ESTIMATED > 60
[2020-09-18 06:05] LABS: BUN/CREATININE RATIO 18
[2020-09-18 06:06] LABS: ALANINE AMINOTRANSFERASE 67 U/L (0-55)
[2020-09-18] MEDS: MULTIVIT W/MINERALS TAB (THERAGRAN M) PO SCH (06:14)
[2020-09-18 08:36] VITALS: BP 164/78
[2020-09-18] MEDS: ASCORBIC ACID (VIT C) 500 MG TABLET PO SCH ×2 (08:39→18:12)
[2020-09-18] MEDS: LACTOBACILLUS ACIDOPHILUS (PROBIOTIC) CAPSULE PO SCH ×2 (08:39→20:31)
[2020-09-18] MEDS: ZINC SULFATE 220 MG CAPSULE PO SCH (08:39)
[2020-09-18] MEDS: MICONAZOLE 2% POWDER (DESENEX AF) 90 GM TOP SCH ×2 (08:39→20:32)
[2020-09-18] MEDS: ENOXAPARIN 60 MG/0.6 ML (LOVENOX) SYR SC SCH ×2 (08:39→20:31)
[2020-09-18] MEDS: toPIRamate 25 MG (TOPAMAX) TAB PO SCH ×2 (08:39→20:32)
[2020-09-18] MEDS: metFORMIN 500 MG (GLUCOPHAGE) TAB PO SCH ×2 (08:39→18:12)
[2020-09-18] MEDS: fluCOnazole (DIFLUCAN) 100 MG TAB PO SCH (08:39)
[2020-09-18] MEDS: meTOprolol SUCCINATE 100 MG (TOPROL XL) TAB PO SCH (08:39)
[2020-09-18] MEDS: polyethylene glycoL POWDER 17 GM (MIRALAX) PACK PO SCH ×2 (09:17→20:42)
[2020-09-18] MEDS: SENNA W/DOCUSATE (SENOKOT S) TABLET PO SCH ×2 (09:17→20:42)
[2020-09-18] MEDS: DOCUSATE SODIUM 100 MG (COLACE) CAP PO SCH ×2 (09:17→20:42)
--- NOTE | 2020-09-18 10:17 | Occupational Ther Daily Note ---
OT Current Status-Daily Note Subjective No pain reported. Mental Status/Objective Patient Orientation: Person, Place, Time, Situation ADL-Treatment Therapy Code Descriptions/Definitions Functional [place] Measure: 0=Not Assessed/NA 4=Minimal Assistance 1=Total Assistance 5=Supervision or Setup 2=Maximal Assistance 6=Modified [place] 3=Moderate Assistance 7=Complete IndependenceSCALE: Activities may be completed with or without assistive devices. 3-Nwtvqvcank-mafjwva completes the activity by him/herself with no assistance from a helper. 5-Set-up or Clean-up Assistance-helper sets up or cleans up; patient completes activity. [place] assists only prior to or following the activity. 4-Supervision or Touching Assistance-helper provides verbal cues and/or touching/steadying and/or contact guard assistance as patient completes activity. Assistance may be provided throughout the activity or intermittently. 3-Partial/Moderate Assistance-helper does LESS THAN HALF the effort. [place] lifts, holds or supports trunk or limbs, but provides less than half the effort. 2-Substantial/Maximal Assistance-helper does MORE THAN HALF the effort. [place] lifts or holds trunk or limbs and provides more than half the effort. 8-Kkezblsun-lwgbzn does ALL the effort. Patient does none of the effort to complete the activity. Or, the assistance of 2 or more helpers is required for the patient to complete the activity. If activity was not attempted, code reason: 7-Patient Refused. 9-Not Applicable-not attempted and the patient did not perform the activity before the current illness, exacerbation or injury. 10-Not Attempted due to Environmental Limitations-(lack of equipment, weather restraints, etc.). 88-Not Attempted due to Medical Conditions or Safety Concerns. Eating (QC): 6 Shower/Bathe Self (QC): 5 (Pt. is able to complete sponge bath at bed level after set up.) Upper Body Dressing (QC): 5 Lower Body Dressing (QC): 5 Toileting Hygiene (QC): 1 (Pt. did request bed garcia just prior to therapy entering room. Pt. had BM and nursing assisted with cleansing and placement.) Pt. participates in co-treatment with OT/PT due to low endurance and fatigue. Pt. had knee injections on Friday, and is unsure if they have "kicked in" yet. PT focuses on mobility and LE strengthening while OT initiates ADL skills and UE strengthening. Pt. transfers supine-sit with SBA after completing ADLs at bed level. Pt. transfers sit-stand with CGA, and is able to take small steps to wheelchair that is placed close by. Pt. propels self to therapy gym, with increased time needed. Stands at walker, and ambulates 3 times with SBA/CGA. Please see PT note for distance. Pt. reports that his knees "can feel it." Unable to continue with ambulation, and so OT/PT complete task that incorporates UE reciprocal movements for strengthening, as well as LE reciprocal movements for strengthening. Pt. transfers back to wheelchair with SBA, and is able to self propel back to room. Transfers to bed with SBA. All needs met at bed level. Education OT Patient Education: Correct positioning, Exercise program, Modified ADL techniques, Progress toward Goal/Update tx plan, Purpose of tx/functional activities, Reviewed precautions, Rehab process, Transfer techniques Teaching Recipient: Patient Teaching Methods: Demonstration, Discussion Response to Teaching: Verbalize Understanding, Return Demonstration OT Short Term Goals Short Term Goals Time Frame: Sep 21, 2020 Eatin Oral hygiene: 5 Toileting hygiene: 4 Shower/bathe self: 4 Upper body dressin Lower body dressin Putting on/taking off footwear: 4 OT Chemicals Fermentation Operator Goals Chemicals Fermentation Operator Goals Time Frame: Sep 28, 2020 Eating (QC): 6 Oral Hygiene (QC): 6 Toileting Hygiene (QC): 6 Shower/Bathe Self (QC): 4 Upper Body Dressing (QC): 6 Lower Body Dressing (QC): 6 On/Off Footwear (QC): 6 Additional Goals: 1-Demonstrate ADL Tasks, 2-Verbalize Understanding, 3- ImproveStrength/Warner 1=Demonstrate adherence to instructed precautions during ADL tasks. 2=Patient will verbalize/demonstrate understanding of assistive devices/modifications for ADL. 3=Patient will improve strength/tolerance for activity to enable patient to perform ADL's. OT Education/Plan Problem List/Assessment Assessment: Decreased Activ Tolerance, Impaired I ADL's, Impaired Self-Care Skills Discharge Recommendations Plan/Recommendations: Continue POC Therapy Discharge Recommendati: Home & Family, Post Acute OT Treatment Plan/Plan of Care Treatment,Training & Education: Yes Patient would benefit from OT for education, treatment and training to promote independence in ADL's, mobility, safety and/or upper extremity function for ADL's. Plan of Care: ADL Retraining, Functional Mobility, UE Funct Exercise/Act Treatment Duration: Sep 28, 2020 Frequency: At least 5 of 7 days/Wk (IRF) Estimated Hrs Per Day: 1.5 hours per day Agreement: Yes Rehab Potential: Good Time/GCodes Start Time: 09:00 Stop Time: 10:00 Total Time Billed (hr/min): 60 Billed Treatment Time 1, ADL x 15minutes, FA x 45minutes BRENDAN BARBOZA OT Sep 18, 2020 10:17
--- NOTE | 2020-09-18 10:36 | PM&R Progress Note ---
Subjective HPI/CC On Admission Date Seen by Provider: Sep 18, 2020 Time Seen by Provider: 10:30 Subjective/Events-last exam 09/18/20: Pt doing very well Catheter has been discontinued and if he cant void and has retention, we will consult urology Labs stable Will use commode instead of using bedpan from here on out Overall motivated to improve 09/17/20: Full code now since he was DNR when they contemplated removing his penis and testicles so changed to full code in EMR Dr Hooper saw the patient DC catheter tomorrow and if retention occurs will consult Urology BM treatment 09/16/20: Patient denies pain. Daughter at bedside Appreciate Dr Hooper guidance on wound Changed dressing today Knee injections went well yesterday 4600 output in lama 09/15/20: Patient doing well Knee injections will be performed this afternoon Dr Hooper consulted for wound care Wound vac contemplated Yeast infection noted so will initiate Diflucan and wound care will initiate topicals per protocol No issues otherwise Review of Systems General: Fatigue Neurological: Weakness Objective Exam Vital Signs Vital Signs Date Time Temp Pulse Resp B/P (MAP) Pulse Ox O2 Delivery O2 Flow Rate FiO2 09/19/20 05:10 36.2 87 20 168/81 (110) 95 Room Air Capillary Refill : General Appearance: No Apparent Distress, Obese (super morbidly) HEENT: PERRL/EOMI Respiratory: Lungs Clear, No Accessory Muscle Use, No Respiratory Distress Cardiovascular: Regular Rate, Rhythm, No Murmur Gastrointestinal: Normal Bowel Sounds, No Organomegaly, No Pulsatile Mass, Non Tender, Soft Back: Normal Inspection, No CVA Tenderness, No Vertebral Tenderness Extremity: Non Tender Neurologic/Psychiatric: Alert, Oriented x3 Skin: Other (dressing to scrotum c/d/i, lama in place. almost no erythema in inguinal creases) Results/Procedures Lab Patient resulted labs reviewed. FIM Transfers Therapy Code Descriptions/Definitions Functional [place] Measure: 0=Not Assessed/NA 4=Minimal Assistance 1=Total Assistance 5=Supervision or Setup 2=Maximal Assistance 6=Modified [place] 3=Moderate Assistance 7=Complete IndependenceSCALE: Activities may be completed with or without assistive devices. 1-Ldsjryygil-wrwqfyy completes the activity by him/herself with no assistance from a helper. 5-Set-up or Clean-up Assistance-helper sets up or cleans up; patient completes activity. [place] assists only prior to or following the activity. 4-Supervision or Touching Assistance-helper provides verbal cues and/or touching/steadying and/or contact guard assistance as patient completes activity. Assistance may be provided throughout the activity or intermittently. 3-Partial/Moderate Assistance-helper does LESS THAN HALF the effort. [place] lifts, holds or supports trunk or limbs, but provides less than half the effort. 2-Substantial/Maximal Assistance-helper does MORE THAN HALF the effort. [place] lifts or holds trunk or limbs and provides more than half the effort. 4-Chuzhgtwn-bquevn does ALL the effort. Patient does none of the effort to c omplete the activity. Or, the assistance of 2 or more helpers is required for the patient to complete the activity. If activity was not attempted, code reason: 7-Patient Refused. 9-Not Applicable-not attempted and the patient did not perform the activity before the current illness, exacerbation or injury. 10-Not Attempted due to Environmental Limitations-(lack of equipment, weather restraints, etc.). 88-Not Attempted due to Medical Conditions or Safety Concerns. Roll Left to Right (QC): 6 Sit to Lying (QC): 4 Sit to Stand (QC): 4 Chair/Wkh-ag-Gargi Xfer(QC): 4 Car Transfer (QC): 7 (Declined due to painful WB activity for transfer. ) Gait Training Does the Patient Walk?: No and Walking Goal IS indicated Walk 10 feet (QC): 7 Walk 50 ft with 2 Turns(QC): 7 Walk 150 ft (QC): 7 Walking 10ft/uneven surface-QC: 7 Gait Assistive Device: FWW Wheelchair Training Does the Pt Use a Wheelchair?: Yes Wheel 50 ft with 2 turns (QC): 4 Wheel 150 ft (QC): 4 Type of Wheelchair: Manual Stair Training 1 Step (curb) (QC): 7 4 Steps (QC): 7 12 Steps (QC): 7 Balance Picking up an Object (QC): 88 ADL-Treatment Eating (QC): 6 Oral Hygiene (QC): 7 Shower/Bathe Self (QC): 5 (Pt. is able to complete sponge bath at bed level after set up.) Upper Body Dressing (QC): 5 Lower Body Dressing (QC): 5 On/Off Footwear (QC): 6 Toileting Hygiene (QC): 1 (Pt. did request bed garcia just prior to therapy entering room. Pt. had BM and nursing assisted with cleansing and placement.) Assessment/Plan Assessment and Plan Assess & Plan/Chief Complaint 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 DM HTN Obesity Knee pain requiring steroid injections every 3 months by PCP Plan: IRF protocol Knee xrays Home meds Pain control 09/15/20: Knee injections Appreciate Dr Bynum and Blas Buchanan Knee xrays discussed IRF protocol Dr Hooper appreciated 09/16/20: Dr Hooper consult Monitor UOP Pain control Knee injections appreciated 09/17/20: Monitor closely DC catheter tomorrow BM regimen 09/18/20: DC catheter Monitor for retention Wound care appreciated (1) Jose gangrene GISELLE CARBONE DO Sep 18, 2020 10:36
--- NOTE | 2020-09-18 10:58 | Physical Therapy Daily Note ---
PT Daily Note-Current Subjective Patient in bed pre tx, agrees to PT, has 6/10 pain in both knees, will be co- treating with OT due to poor patient mobility, strength, severe knee pain with activity, coordinate UE and LE with activity, safety and reduce risk of falls. Appearance Patient in bed post tx with nurse call, phone, tray, all needs met. Mental Status Patient Orientation: Person, Place, Situation Attachments: [place] Catheter Transfers SCALE: Activities may be completed with or without assistive devices. 4-Awnjsgzpqa-olpzxez completes the activity by him/herself with no assistance from a helper. 5-Set-up or Clean-up Assistance-helper sets up or cleans up; patient completes activity. [place] assists only prior to or following the activity. 4-Supervision or Touching Assistance-helper provides verbal cues and/or touching/steadying and/or contact guard assistance as patient completes activity. Assistance may be provided throughout the activity or intermittently. 3-Partial/Moderate Assistance-helper does LESS THAN HALF the effort. [place] lifts, holds or supports trunk or limbs, but provides less than half the effort. 2-Substantial/Maximal Assistance-helper does MORE THAN HALF the effort. [place] lifts or holds trunk or limbs and provides more than half the effort. 7-Ianbjjswd-vdzzze does ALL the effort. Patient does none of the effort to complete the activity. Or, the assistance of 2 or more helpers is required for the patient to complete the activity. If activity was not attempted, code reason: 7-Patient Refused. 9-Not Applicable-not attempted and the patient did not perform the activity before the current illness, exacerbation or injury. 10-Not Attempted due to Environmental Limitations-(lack of equipment, weather restraints, etc.). 88-Not Attempted due to Medical Conditions or Safety Concerns. Roll Left & Right (QC): 4 Sit to Lying (QC): 4 Lying to Sitting/Side of Bed(Q: 4 Sit to Stand (QC): 4 Chair/Anr-oe-Ldmzv Xfer(QC): 4 CGA with stand pivot transfers, patient has some knee buckling mostly on the left side but not a complete LOB Weight Bearing Right Lower Extremity: Right Full Weight Bearing Left Lower Extremity: Left Full Weight Bearing Gait Training Distance: 20'x3 Walk 10 feet (QC): 4 Gait Assistive Device: FWW WC follow, very antalgic, slow, slumped posture Wheelchair Training Does the Pt Use a Wheelchair?: Yes Wheel 50 ft with 2 turns (QC): 4 Type of Wheelchair: Manual 120'x2 Exercises reciprocal UE exercise while simultaneously performing LE strengthening Treatments PT performed bed mobility and transfers, ambulation, LE exercise, WC mobility, OT performed UE exercise and safety and positioning during activity Assessment Current Status: Fair Progress improved ambulation but still has significant pain with ambulation PT Short Term Goals Short Term Goals Time Frame: Sep 21, 2020 Sit to stand: 4 Chair/ovl-mj-mqpcf transfer: 4 Walk 150 feet: 4 PT Oxyacetylene Welder Goals Oxyacetylene Welder Goals PT Senior Care Goals Time Frame: Sep 28, 2020 Roll Left & Right (QC): 6 Sit to Lying (QC): 6 Lying-Sitting on Side/Bed(QC): 6 Sit to Stand (QC): 6 Chair/Gio-ax-Skkhq Xfer(QC): 6 Toilet Transfer (QC): 6 Car Transfer (QC): 6 Does the Patient Walk: No and Walking Goal IS indicated Walk 10 feet (QC): 6 Walk 50ft with 2 Turns (QC): 6 Walk 150 ft (QC): 6 Walking 10ft on Uneven Surface: 6 1 Step (curb) (QC): 6 4 Steps (QC): 6 12 Steps (QC): 4 Picking up an Object (QC): 4 Does the Pt use WC or Scooter?: Yes Wheel 50 feet with 2 turns (QC: 6 Type: Manual Wheel 150 feet: 6 PT Plan Problem List Problem List: Activity Tolerance, Functional Strength, Safety, Balance, Gait, Transfer, Bed Mobility, ROM Treatment/Plan Treatment Plan: Continue Plan of Care Treatment Plan: Bed Mobility, Education, Functional Activity [place], Functional Strength, Group Therapy, Gait, Safety, Therapeutic Exercise, Transfers Treatment Duration: Sep 28, 2020 Frequency: At least 5 of 7 days/Wk (IRF) Estimated Hrs Per Day: 1.5 hours per day Patient and/or Family Agrees t: Yes Safety Risks/Education Patient Education: Gait Training, Transfer Techniques, Correct Positioning, W/C Management, Safety Issues Teaching Recipient: Patient Teaching Methods: Demonstration, Discussion Response to Teaching: Reinforcement Needed Time/GCodes Time In: 0900 Time Out: 1000 Total Billed Treatment Time: 60 Total Billed Treatment 1 visit EX 15' FA 45' KRTEK,ARIEL PT Sep 18, 2020 10:58
--- NOTE | 2020-09-18 12:41 | Progress Note - Surgery ---
Subjective Time Seen by a Provider: 12:01 Subjective/Events-last exam Pt seen and examined, no new complaints. Thinks the wound is healing well. Review of Systems General: Fatigue HEENT: No Head Aches Pulmonary: No Dyspnea, No Cough Cardiovascular: No: Chest Pain, Palpitations Gastrointestinal: No: Nausea, Vomiting, Abdominal Pain Objective Exam Vital Signs Date Time Temp Pulse Resp B/P (MAP) Pulse Ox O2 Delivery O2 Flow Rate FiO2 09/18/20 08:36 164/78 (106) 09/18/20 08:00 Room Air 09/18/20 05:45 35.9 77 17 159/89 (112) 95 Room Air 09/17/20 20:00 Room Air 09/17/20 17:01 36.2 87 20 147/76 (99) 94 Room Air I & O 09/18/20 07:00 Intake Total 3500 ml Output Total 4995 ml Balance -1495 ml Capillary Refill : General Appearance: No Apparent Distress, Obese (super morbidly) HEENT: PERRL/EOMI Respiratory: Lungs Clear, No Accessory Muscle Use, No Respiratory Distress Cardiovascular: Regular Rate, Rhythm, No Murmur Gastrointestinal: non tender, soft Neurologic/Psychiatric: Alert, Oriented x3 Skin: Other (dressing to scrotum c/d/i, no erythema in inguinal creases) Results Lab Laboratory Tests 09/18/20 05:15: White Blood Count 8.6, Red Blood Count 4.08L, Hemoglobin 12.2L, Hematocrit 37L, Mean Corpuscular Volume 91, Mean Corpuscular Hemoglobin 30, Mean Corpuscular Hemoglobin Concent 33, Red Cell Distribution Width 13.1, Platelet Count 254, Mean Platelet Volume 10.6, Immature Granulocyte % (Auto) 1, Neutrophils (%) (Auto) 54, Lymphocytes (%) (Auto) 33, Monocytes (%) (Auto) 10, Eosinophils (%) (Auto) 1, Basophils (%) (Auto) 1, Neutrophils # (Auto) 4.6, Lymphocytes # (Auto) 2.8, Monocytes # (Auto) 0.9, Eosinophils # (Auto) 0.1, Basophils # (Auto) 0.1, Immature Granulocyte # (Auto) 0.1, Sodium Level 138, Potassium Level 4.2, Ch loride Level 106, Carbon Dioxide Level 22, Anion Gap 10, Blood Urea Nitrogen 15, Creatinine 0.83, Estimat Glomerular Filtration Rate > 60, BUN/Creatinine Ratio 18, Glucose Level 147H, Calcium Level 8.9, Corrected Calcium 9.1, Total Dago irubin 0.4, Aspartate Amino Transf (AST/SGOT) 48H, Alanine Aminotransferase (ALT/SGPT) 67H, Alkaline Phosphatase 73, Total Protein 7.1, Albumin 3.8 Assessment/Plan Assessment/Plan Assessment/Plan [place] gangrene- s/p debridement Non-healing wound Candidal infection Poorly controlled DM HTN Osteoarthritis of Bilateral knees Continue local wound care with daily dressing changes, Continue Nystatin powder for in inguinal creases. Pain control, glucose control, PT/OT. Pt is improving and no need for surgical intervention, I will sign off and reconsult if needed. BEREKET TALBERT DO Sep 18, 2020 12:41
--- NOTE | 2020-09-18 13:22 | Physical Therapy Daily Note ---
PT Daily Note-Current Subjective Patient in bed pre tx, agrees to PT, has 9/10 pain in knees, nurse notified and she is going to get pain meds. Appearance Patient in WC at bedside post tx with nurse call, phone, tray, all needs met. Mental Status Patient Orientation: Normal For Age Transfers SCALE: Activities may be completed with or without assistive devices. 9-Bfxehtrzhw-yyojbws completes the activity by him/herself with no assistance from a helper. 5-Set-up or Clean-up Assistance-helper sets up or cleans up; patient completes activity. [place] assists only prior to or following the activity. 4-Supervision or Touching Assistance-helper provides verbal cues and/or touching/steadying and/or contact guard assistance as patient completes activity. Assistance may be provided throughout the activity or intermittently. 3-Partial/Moderate Assistance-helper does LESS THAN HALF the effort. [place] lifts, holds or supports trunk or limbs, but provides less than half the effort. 2-Substantial/Maximal Assistance-helper does MORE THAN HALF the effort. [place] lifts or holds trunk or limbs and provides more than half the effort. 6-Hfeqyphzn-rhwclf does ALL the effort. Patient does none of the effort to complete the activity. Or, the assistance of 2 or more helpers is required for the patient to complete the activity. If activity was not attempted, code reason: 7-Patient Refused. 9-Not Applicable-not attempted and the patient did not perform the activity before the current illness, exacerbation or injury. 10-Not Attempted due to Environmental Limitations-(lack of equipment, weather restraints, etc.). 88-Not Attempted due to Medical Conditions or Safety Concerns. Roll Left & Right (QC): 6 Lying to Sitting/Side of Bed(Q: 6 Sit to Stand (QC): 4 Chair/Ggt-lg-Qqggv Xfer(QC): 4 Weight Bearing Right Lower Extremity: Right Full Weight Bearing Left Lower Extremity: Left Full Weight Bearing Gait Training Distance: 20'x3 Walk 10 feet (QC): 4 Gait Persons Needed: 1 Gait Assistive Device: FWW WC follow, SBA, antalgic ambulation Wheelchair Training Does the Pt Use a Wheelchair?: Yes Wheel 50 ft with 2 turns (QC): 4 Type of Wheelchair: Manual 120'x2 Treatments bed mobility and transfers, ambulation, WC mobility Assessment Current Status: Fair Progress improving general mobility but still severe knee pain PT Short Term Goals Short Term Goals Time Frame: Sep 21, 2020 Sit to stand: 4 Chair/vye-yd-zaamd transfer: 4 Walk 150 feet: 4 PT Half-Way Goals Half-Way Goals PT Director Of Graduate Medical Education Goals Time Frame: Sep 28, 2020 Roll Left & Right (QC): 6 Sit to Lying (QC): 6 Lying-Sitting on Side/Bed(QC): 6 Sit to Stand (QC): 6 Chair/Bmv-bf-Lbvuz Xfer(QC): 6 Toilet Transfer (QC): 6 Car Transfer (QC): 6 Does the Patient Walk: No and Walking Goal IS indicated Walk 10 feet (QC): 6 Walk 50ft with 2 Turns (QC): 6 Walk 150 ft (QC): 6 Walking 10ft on Uneven Surface: 6 1 Step (curb) (QC): 6 4 Steps (QC): 6 12 Steps (QC): 4 Picking up an Object (QC): 4 Does the Pt use WC or Scooter?: Yes Wheel 50 feet with 2 turns (QC: 6 Type: Manual Wheel 150 feet: 6 PT Plan Problem List Problem List: Activity Tolerance, Functional Strength, Safety, Balance, Gait, Transfer, Bed Mobility, ROM Treatment/Plan Treatment Plan: Continue Plan of Care Treatment Plan: Bed Mobility, Education, Functional Activity [place], Functional Strength, Group Therapy, Gait, Safety, Therapeutic Exercise, Transfers Treatment Duration: Sep 28, 2020 Frequency: At least 5 of 7 days/Wk (IRF) Estimated Hrs Per Day: 1.5 hours per day Patient and/or Family Agrees t: Yes Safety Risks/Education Patient Education: Gait Training, Transfer Techniques, Correct Positioning, W/C Management, Safety Issues Teaching Recipient: Patient Teaching Methods: Demonstration, Discussion Response to Teaching: Reinforcement Needed Time/GCodes Time In: 1300 Time Out: 1330 Total Billed Treatment Time: 30 Total Billed Treatment 1 visit FA 30' ARIEL CHU PT Sep 18, 2020 13:22
--- NOTE | 2020-09-18 15:31 | Occupational Ther Daily Note ---
OT Current Status-Daily Note Subjective No pain reported. Mental Status/Objective Patient Orientation: Person, Place, Time, Situation ADL-Treatment Therapy Code Descriptions/Definitions Functional [place] Measure: 0=Not Assessed/NA 4=Minimal Assistance 1=Total Assistance 5=Supervision or Setup 2=Maximal Assistance 6=Modified [place] 3=Moderate Assistance 7=Complete IndependenceSCALE: Activities may be completed with or without assistive devices. 6-Knsvsdexbt-nkhpgmr completes the activity by him/herself with no assistance from a helper. 5-Set-up or Clean-up Assistance-helper sets up or cleans up; patient completes activity. [place] assists only prior to or following the activity. 4-Supervision or Touching Assistance-helper provides verbal cues and/or touching/steadying and/or contact guard assistance as patient completes activity. Assistance may be provided throughout the activity or intermittently. 3-Partial/Moderate Assistance-helper does LESS THAN HALF the effort. [place] lifts, holds or supports trunk or limbs, but provides less than half the effort. 2-Substantial/Maximal Assistance-helper does MORE THAN HALF the effort. [place] lifts or holds trunk or limbs and provides more than half the effort. 9-Wtlkhctrh-mjfdra does ALL the effort. Patient does none of the effort to complete the activity. Or, the assistance of 2 or more helpers is required for the patient to complete the activity. If activity was not attempted, code reason: 7-Patient Refused. 9-Not Applicable-not attempted and the patient did not perform the activity before the current illness, exacerbation or injury. 10-Not Attempted due to Environmental Limitations-(lack of equipment, weather restraints, etc.). 88-Not Attempted due to Medical Conditions or Safety Concerns. Other Treatment Pt. up in wheelchair. Agrees to work with OT. Pt. self propelled to therapy gym. Tolerated arm bike x 10 minutes at mod resistance. After this, pt. completed 4 bilateral UE exercises, x 6 lb. dumbbell, x 15 reps each exercise, in all planes. Tolerated this for increased overall strengthening for daily tasks. Pt. self propelled back to room after treatment. All needs met. Education OT Patient Education: Correct positioning, Exercise program, Modified ADL techniques, Progress toward Goal/Update tx plan, Purpose of tx/functional activities, Reviewed precautions, Rehab process, Transfer techniques Teaching Recipient: Patient Teaching Methods: Demonstration, Discussion Response to Teaching: Verbalize Understanding, Return Demonstration OT Short Term Goals Short Term Goals Time Frame: Sep 21, 2020 Eatin Oral hygiene: 5 Toileting hygiene: 4 Shower/bathe self: 4 Upper body dressin Lower body dressin Putting on/taking off footwear: 4 OT Assisted Goals Assisted Goals Time Frame: Sep 28, 2020 Eating (QC): 6 Oral Hygiene (QC): 6 Toileting Hygiene (QC): 6 Shower/Bathe Self (QC): 4 Upper Body Dressing (QC): 6 Lower Body Dressing (QC): 6 On/Off Footwear (QC): 6 Additional Goals: 1-Demonstrate ADL Tasks, 2-Verbalize Understanding, 3- ImproveStrength/Warner 1=Demonstrate adherence to instructed precautions during ADL tasks. 2=Patient will verbalize/demonstrate understanding of assistive devices/modifications for ADL. 3=Patient will improve strength/tolerance for activity to enable patient to perform ADL's. OT Education/Plan Problem List/Assessment Assessment: Decreased Activ Tolerance, Impaired Funct Balance, Impaired I ADL's, Impaired Self-Care Skills Discharge Recommendations Plan/Recommendations: Continue POC Therapy Discharge Recommendati: Post Acute OT Equpiment Recommendations-D/C: Hip Kit Treatment Plan/Plan of Care Treatment,Training & Education: Yes Patient would benefit from OT for education, treatment and training to promote independence in ADL's, mobility, safety and/or upper extremity function for AD L's. Plan of Care: ADL Retraining, Functional Mobility, UE Funct Exercise/Act Treatment Duration: Sep 28, 2020 Frequency: At least 5 of 7 days/Wk (IRF) Estimated Hrs Per Day: 1.5 hours per day Agreement: Yes Rehab Potential: Good Time/GCodes Start Time: 14:05 Stop Time: 14:35 Total Time Billed (hr/min): 30 Billed Treatment Time 1, Ex x 30minutes BRENDAN BARBOZA OT Sep 18, 2020 15:31
[2020-09-18 17:04] VITALS: BP 182/90
[2020-09-18] MEDS: traZODone 100 MG (DESYREL) TAB PO SCH (20:32)
[2020-09-18] MEDS: ACETAMINOPHEN 325 MG TABLET PO PRN (20:35)
[2020-09-19 05:10] VITALS: BP 168/81
[2020-09-19] MEDS: MULTIVIT W/MINERALS TAB (THERAGRAN M) PO SCH (06:24)
[2020-09-19] MEDS: metFORMIN 500 MG (GLUCOPHAGE) TAB PO SCH ×2 (08:27→17:08)
[2020-09-19] MEDS: fluCOnazole (DIFLUCAN) 100 MG TAB PO SCH (08:27)
[2020-09-19] MEDS: ASCORBIC ACID (VIT C) 500 MG TABLET PO SCH ×2 (08:27→17:08)
[2020-09-19] MEDS: meTOprolol SUCCINATE 100 MG (TOPROL XL) TAB PO SCH (08:27)
[2020-09-19] MEDS: ZINC SULFATE 220 MG CAPSULE PO SCH (08:27)
[2020-09-19] MEDS: ENOXAPARIN 60 MG/0.6 ML (LOVENOX) SYR SC SCH ×2 (08:27→20:50)
[2020-09-19] MEDS: toPIRamate 25 MG (TOPAMAX) TAB PO SCH ×2 (08:27→20:50)
[2020-09-19] MEDS: SENNA W/DOCUSATE (SENOKOT S) TABLET PO SCH ×2 (08:27→21:11)
[2020-09-19] MEDS: LACTOBACILLUS ACIDOPHILUS (PROBIOTIC) CAPSULE PO SCH ×2 (08:27→20:50)
[2020-09-19] MEDS: MICONAZOLE 2% POWDER (DESENEX AF) 90 GM TOP SCH ×2 (08:27→20:52)
[2020-09-19] MEDS: polyethylene glycoL POWDER 17 GM (MIRALAX) PACK PO SCH ×2 (08:28→21:11)
[2020-09-19] MEDS: DOCUSATE SODIUM 100 MG (COLACE) CAP PO SCH ×2 (08:28→21:11)
[2020-09-19 09:45] VITALS: BP 141/74
--- NOTE | 2020-09-19 09:57 | Physical Therapy Daily Note ---
PT Daily Note-Current Subjective Patient in therapy gym pre tx, agrees to PT, has unrated bilateral knee pain. Will be co-treating with OT due to severe pain with activity, coordinate UE and LE during activity, safety and reduce risk of falls. Mental Status Patient Orientation: Normal For Age Transfers SCALE: Activities may be completed with or without assistive devices. 4-Ohdxegbhnr-yhcviba completes the activity by him/herself with no assistance from a helper. 5-Set-up or Clean-up Assistance-helper sets up or cleans up; patient completes activity. [place] assists only prior to or following the activity. 4-Supervision or Touching Assistance-helper provides verbal cues and/or touching/steadying and/or contact guard assistance as patient completes activity. Assistance may be provided throughout the activity or intermittently. 3-Partial/Moderate Assistance-helper does LESS THAN HALF the effort. [place] lifts, holds or supports trunk or limbs, but provides less than half the effort. 2-Substantial/Maximal Assistance-helper does MORE THAN HALF the effort. [place] lifts or holds trunk or limbs and provides more than half the effort. 3-Mnonroeny-imdmrf does ALL the effort. Patient does none of the effort to complete the activity. Or, the assistance of 2 or more helpers is required for the patient to complete the activity. If activity was not attempted, code reason: 7-Patient Refused. 9-Not Applicable-not attempted and the patient did not perform the activity before the current illness, exacerbation or injury. 10-Not Attempted due to Environmental Limitations-(lack of equipment, weather restraints, etc.). 88-Not Attempted due to Medical Conditions or Safety Concerns. Sit to Stand (QC): 4 Chair/Cuk-lw-Ndgfj Xfer(QC): 4 After getting back to room patient rolls WC into restroom, undresses, needs assist with socks, transfers to shower bench, showers, back to , dresses Weight Bearing Right Lower Extremity: Right Full Weight Bearing Left Lower Extremity: Left Full Weight Bearing Wheelchair Training Does the Pt Use a Wheelchair?: Yes Wheel 50 ft with 2 turns (QC): 4 Wheel 150 ft (QC): 4 Type of Wheelchair: Manual 200' Exercises LAQ alternating for 5 min Treatments PT performed transfers, WC mobility, LE exercise, standing and positioning and safety during shower, OT performed shower, UE exercise, UE positioning and safety during activity Assessment Current Status: Fair Progress continued progress with functional mobility PT Short Term Goals Short Term Goals Time Frame: Sep 21, 2020 Sit to stand: 4 Chair/mhe-ph-uctqv transfer: 4 Walk 150 feet: 4 PT Fci Goals Well Logging Captain Mud Analysis Goals PT Well Logging Captain Mud Analysis Goals Time Frame: Sep 28, 2020 Roll Left & Right (QC): 6 Sit to Lying (QC): 6 Lying-Sitting on Side/Bed(QC): 6 Sit to Stand (QC): 6 Chair/Vxc-en-Zllam Xfer(QC): 6 Toilet Transfer (QC): 6 Car Transfer (QC): 6 Does the Patient Walk: No and Walking Goal IS indicated Walk 10 feet (QC): 6 Walk 50ft with 2 Turns (QC): 6 Walk 150 ft (QC): 6 Walking 10ft on Uneven Surface: 6 1 Step (curb) (QC): 6 4 Steps (QC): 6 12 Steps (QC): 4 Picking up an Object (QC): 4 Does the Pt use WC or Scooter?: Yes Wheel 50 feet with 2 turns (QC: 6 Type: Manual Wheel 150 feet: 6 PT Plan Problem List Problem List: Activity Tolerance, Functional Strength, Safety, Balance, Gait, Transfer, Bed Mobility, ROM Treatment/Plan Treatment Plan: Continue Plan of Care Treatment Plan: Bed Mobility, Education, Functional Activity [place], Functional Strength, Group Therapy, Gait, Safety, Therapeutic Exercise, Transfers Treatment Duration: Sep 28, 2020 Frequency: At least 5 of 7 days/Wk (IRF) Estimated Hrs Per Day: 1.5 hours per day Patient and/or Family Agrees t: Yes Safety Risks/Education Patient Education: Transfer Techniques, Correct Positioning, W/C Management, Safety Issues Teaching Recipient: Patient Teaching Methods: Demonstration, Discussion Response to Teaching: Reinforcement Needed Time/GCodes Time In: 0900 Time Out: 1000 Total Billed Treatment Time: 60 Total Billed Treatment 1 visit FA 60' co-treated with OT for 60' ARIEL CHU PT Sep 19, 2020 09:57
--- NOTE | 2020-09-19 10:39 | PM&R Progress Note ---
Subjective HPI/CC On Admission Date Seen by Provider: Sep 19, 2020 Time Seen by Provider: 10:30 Subjective/Events-last exam 09/19/20: Pt doing a lot better Shower was uneventful Dressing change, it looks good. Bowels moved yesterday Voiding well since removed catheter Transferring a lot better Dysuria reported and he thinks he has a UTI so will check UA 09/18/20: Pt doing very well Catheter has been discontinued and if he cant void and has retention, we will consult urology Labs stable Will use commode instead of using bedpan from here on out Overall motivated to improve 09/17/20: Full code now since he was DNR when they contemplated removing his penis and testicles so changed to full code in EMR Dr Hooper saw the patient DC catheter tomorrow and if retention occurs will consult Urology BM treatment 09/16/20: Patient denies pain. Daughter at bedside Appreciate Dr Hooper guidance on wound Changed dressing today Knee injections went well yesterday 4600 output in lama 09/15/20: Patient doing well Knee injections will be performed this afternoon Dr Hooper consulted for wound care Wound vac contemplated Yeast infection noted so will initiate Diflucan and wound care will initiate topicals per protocol No issues otherwise Review of Systems General: Fatigue Genitourinary: Dysuria Neurological: Weakness, Incoordination Objective Exam Vital Signs Vital Signs Date Time Temp Pulse Resp B/P (MAP) Pulse Ox O2 Delivery O2 Flow Rate FiO2 09/19/20 20:00 Room Air 09/19/20 16:00 36.2 92 18 138/80 (99) 97 Capillary Refill : General Appearance: No Apparent Distress, Obese (super morbidly) HEENT: PERRL/EOMI Respiratory: Lungs Clear, No Accessory Muscle Use, No Respiratory Distress Cardiovascular: Regular Rate, Rhythm, No Murmur Gastrointestinal: Normal Bowel Sounds, No Organomegaly, No Pulsatile Mass, Non Tender, Soft Back: Normal Inspection, No CVA Tenderness, No Vertebral Tenderness Extremity: Non Tender Neurologic/Psychiatric: Alert, Oriented x3 Skin: Other (dressing to scrotum c/d/i, lama in place. almost no erythema in inguinal creases) Results/Procedures Lab Patient resulted labs reviewed. FIM Transfers Therapy Code Descriptions/Definitions Functional [place] Measure: 0=Not Assessed/NA 4=Minimal Assistance 1=Total Assistance 5=Supervision or Setup 2=Maximal Assistance 6=Modified [place] 3=Moderate Assistance 7=Complete IndependenceSCALE: Activities may be completed with or without assistive devices. 5-Lpypnrrxcf-pnnetvo completes the activity by him/herself with no assistance from a helper. 5-Set-up or Clean-up Assistance-helper sets up or cleans up; patient completes activity. [place] assists only prior to or following the activity. 4-Supervision or Touching Assistance-helper provides verbal cues and/or touching/steadying and/or contact guard assistance as patient completes activity. Assistance may be provided throughout the activity or intermittently. 3-Partial/Moderate Assistance-helper does LESS THAN HALF the effort. [place] lifts, holds or supports trunk or limbs, but provides less than half the effort. 2-Substantial/Maximal Assistance-helper does MORE THAN HALF the effort. [place] lifts or holds trunk or limbs and provides more than half the effort. 3-Isnujvhqq-nqjfcz does ALL the effort. Patient does none of the effort to complete the activity. Or, the assistance of 2 or more helpers is required for the patient to complete the activity. If activity was not attempted, code reason: 7-Patient Refused. 9-Not Applicable-not attempted and the patient did not perform the activity before the current illness, exacerbation or injury. 10-Not Attempted due to Environmental Limitations-(lack of equipment, weather restraints, etc.). 88-Not Attempted due to Medical Conditions or Safety Concerns. Roll Left to Right (QC): 6 Sit to Lying (QC): 4 Sit to Stand (QC): 4 Chair/Isi-cy-Fsiqh Xfer(QC): 4 Car Transfer (QC): 7 (Declined due to painful WB activity for transfer. ) Gait Training Does the Patient Walk?: No and Walking Goal IS indicated Distance: 20'x3 Walk 10 feet (QC): 4 Walk 50 ft with 2 Turns(QC): 7 Walk 150 ft (QC): 7 Walking 10ft/uneven surface-QC: 7 Gait Persons Needed: 1 Gait Assistive Device: FWW Wheelchair Training Does the Pt Use a Wheelchair?: Yes Wheel 50 ft with 2 turns (QC): 4 Wheel 150 ft (QC): 4 Type of Wheelchair: Manual Stair Training 1 Step (curb) (QC): 7 4 Steps (QC): 7 12 Steps (QC): 7 Balance Picking up an Object (QC): 88 ADL-Treatment Eating (QC): 6 Oral Hygiene (QC): 7 Shower/Bathe Self (QC): 5 (Pt. is able to complete sponge bath at bed level after set up.) Upper Body Dressing (QC): 5 Lower Body Dressing (QC): 5 On/Off Footwear (QC): 6 Toileting Hygiene (QC): 1 (Pt. did request bed garcia just prior to therapy entering room. Pt. 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
--- NOTE | 2020-09-19 10:52 | Occupational Ther Daily Note ---
OT Current Status-Daily Note Subjective Pt. reports that his left knee hurts with movement, but does not state a pain level. Nursing gives pt. pain medication. Appearance Pt. up in wheelchair. Agrees to work with therapy. Mental Status/Objective Patient Orientation: Person, Place, Time, Situation Attachments: IV ADL-Treatment Therapy Code Descriptions/Definitions Functional [place] Measure: 0=Not Assessed/NA 4=Minimal Assistance 1=Total Assistance 5=Supervision or Setup 2=Maximal Assistance 6=Modified [place] 3=Moderate Assistance 7=Complete IndependenceSCALE: Activities may be completed with or without assistive devices. 9-Wzrbzbflfo-uzmxasy completes the activity by him/herself with no assistance from a helper. 5-Set-up or Clean-up Assistance-helper sets up or cleans up; patient completes activity. [place] assists only prior to or following the activity. 4-Supervision or Touching Assistance-helper provides verbal cues and/or touching/steadying and/or contact guard assistance as patient completes activity. Assistance may be provided throughout the activity or intermittently. 3-Partial/Moderate Assistance-helper does LESS THAN HALF the effort. [place] lifts, holds or supports trunk or limbs, but provides less than half the effort. 2-Substantial/Maximal Assistance-helper does MORE THAN HALF the effort. [place] lifts or holds trunk or limbs and provides more than half the effort. 4-Crjsxwvmt-myzdqs does ALL the effort. Patient does none of the effort to complete the activity. Or, the assistance of 2 or more helpers is required for the patient to complete the activity. If activity was not attempted, code reason: 7-Patient Refused. 9-Not Applicable-not attempted and the patient did not perform the activity before the current illness, exacerbation or injury. 10-Not Attempted due to Environmental Limitations-(lack of equipment, weather restraints, etc.). 88-Not Attempted due to Medical Conditions or Safety Concerns. Eating (QC): 6 Shower/Bathe Self (QC): 5 Upper Body Dressing (QC): 5 Lower Body Dressing (QC): 5 On/Off Footwear: 2 Toileting Hygiene (QC): 6 Toilet Transfer (QC): 6 Other Treatment Pt. seen this date for therapy. Pt. ambulated 4 times in mo, with SBA using walker and wheelchair follow. Pt. ambulated 32 feet, 36 feet, 56 feet, and then 28 feet. Pt. requires rest break in between each walk. Pt. insistent to ambulate before showering, as he didn't want to get sweaty after his shower. Pt. completed 10 minutes on arm bike after ambulation, at mod resistance. PT came in after this due to low endurance and fatigue. Pt. participated in UE/LE exercises, alternating between each. Completed 4 bilateral UE exercises x 20 reps with 6 lb. dumbbell, and 3 exercises x 25 reps with red theraband with OT. Each exercise in different planes to continue strengthening. Please see PT note for LE exercises. Pt. self propelled back to room and is able to transfer into shower with PT supervising. Nursing okay, as is physician to shower. OT encouraged different methods for safe ADL skills. Pt. able to doff clothing and shower self after set up. Requires set up to don shirt and pants. Max assist for donning socks due to fatigue. All needs met and nursing to come in and dress wound. Education OT Patient Education: Correct positioning, Exercise program, Modified ADL techniques, Progress toward Goal/Update tx plan, Purpose of tx/functional activities, Reviewed precautions, Rehab process, Transfer techniques Teaching Recipient: Patient Teaching Methods: Demonstration, Discussion Response to Teaching: Verbalize Understanding, Return Demonstration OT Short Term Goals Short Term Goals Time Frame: Sep 21, 2020 Eatin Oral hygiene: 5 Toileting hygiene: 4 Shower/bathe self: 4 Upper body dressin Lower body dressin Putting on/taking off footwear: 4 OT Clam Picker Goals Mcc Goals Time Frame: Sep 28, 2020 Eating (QC): 6 Oral Hygiene (QC): 6 Toileting Hygiene (QC): 6 Shower/Bathe Self (QC): 4 Upper Body Dressing (QC): 6 Lower Body Dressing (QC): 6 On/Off Footwear (QC): 6 Additional Goals: 1-Demonstrate ADL Tasks, 2-Verbalize Understanding, 3- ImproveStrength/[place] 1=Demonstrate adherence to instructed precautions during ADL tasks. 2=Patient will verbalize/demonstrate understanding of assistive devices/modifications for ADL. 3=Patient will improve strength/tolerance for activity to enable patient to perform ADL's. OT Education/Plan Problem List/Assessment Assessment: Decreased Activ Tolerance, Decreased UE Strength, Dependent Transfe rs, Impaired Bed Mobility, Impaired Funct Balance, Impaired I ADL's, Impaired Self-Care Skills Discharge Recommendations Plan/Recommendations: Continue POC Treatment Plan/Plan of Care Treatment,Training & Education: Yes Patient would benefit from OT for education, treatment and training to promote independence in ADL's, mobility, safety and/or upper extremity function for ADL's. Plan of Care: ADL Retraining, Functional Mobility, UE Funct Exercise/Act Treatment Duration: Sep 28, 2020 Frequency: At least 5 of 7 days/Wk (IRF) Estimated Hrs Per Day: 1.5 hours per day Agreement: Yes Rehab Potential: Good Time/GCodes Start Time: 08:30 Stop Time: 10:00 Total Time Billed (hr/min): 90 Billed Treatment Time 2967-2123 1, FA x 15minutes, Ex x 15minutes [id number] FA x 30minutes, ADL x 30minuites- Co-treatment with PT. Please see above note for designated roles. BRENDAN BARBOZA OT Sep 19, 2020 10:52
[2020-09-19 12:25] LABS: BILIRUBIN,URINE NEGATIVE (NEGATIVE); CLARITY,URINE CLEAR; COLOR,URINE YELLOW; GLUCOSE, URINE (UA) NEGATIVE (NEGATIVE); KETONES,URINE NEGATIVE (NEGATIVE); LEUKOCYTE ESTERASE ,URINE 2+ (NEGATIVE); NITRITE,URINE POSITIVE (NEGATIVE); PROTEIN,URINE 1+ (NEGATIVE)
[2020-09-19 12:34] LABS: BACTERIA,URINE MODERATE /HPF; WBC,URINE TNTC /HPF
--- NOTE | 2020-09-19 13:57 | Physical Therapy Daily Note ---
PT Daily Note-Current Subjective Patient in bed pre tx, agrees to PT, has more pain in knees this afternoon per patient report but states he doesn't want any pain meds. Appearance Patient in WC post tx with nurse call, phone, tray, all needs met. Mental Status Patient Orientation: Person, Place, Situation Transfers SCALE: Activities may be completed with or without assistive devices. 1-Axjananzag-hpcpqum completes the activity by him/herself with no assistance from a helper. 5-Set-up or Clean-up Assistance-helper sets up or cleans up; patient completes activity. [place] assists only prior to or following the activity. 4-Supervision or Touching Assistance-helper provides verbal cues and/or touching/steadying and/or contact guard assistance as patient completes activity. Assistance may be provided throughout the activity or intermittently. 3-Partial/Moderate Assistance-helper does LESS THAN HALF the effort. [place] lifts, holds or supports trunk or limbs, but provides less than half the effort. 2-Substantial/Maximal Assistance-helper does MORE THAN HALF the effort. [place] lifts or holds trunk or limbs and provides more than half the effort. 1-Buiruzgum-dpccxn does ALL the effort. Patient does none of the effort to complete the activity. Or, the assistance of 2 or more helpers is required for the patient to complete the activity. If activity was not attempted, code reason: 7-Patient Refused. 9-Not Applicable-not attempted and the patient did not perform the activity before the current illness, exacerbation or injury. 10-Not Attempted due to Environmental Limitations-(lack of equipment, weather restraints, etc.). 88-Not Attempted due to Medical Conditions or Safety Concerns. Roll Left & Right (QC): 6 Lying to Sitting/Side of Bed(Q: 6 Sit to Stand (QC): 4 Chair/Hgg-lj-Kgizf Xfer(QC): 4 Weight Bearing Right Lower Extremity: Right Full Weight Bearing Left Lower Extremity: Left Full Weight Bearing Wheelchair Training Does the Pt Use a Wheelchair?: Yes Wheel 50 ft with 2 turns (QC): 4 Type of Wheelchair: Manual 120'x2 Exercises NuStep Minutes: 10 NuStep Workload: 4 Treatments bed mobility and transfers, LE exercise, WC mobility Assessment Current Status: Fair Progress improving general mobility PT Short Term Goals Short Term Goals Time Frame: Sep 21, 2020 Sit to stand: 4 Chair/bea-xp-wrwyd transfer: 4 Walk 150 feet: 4 PT Fdc Goals Clinical Specialist Medical Device Goals PT Fdc Goals Time Frame: Sep 28, 2020 Roll Left & Right (QC): 6 Sit to Lying (QC): 6 Lying-Sitting on Side/Bed(QC): 6 Sit to Stand (QC): 6 Chair/Jia-mx-Aazcu Xfer(QC): 6 Toilet Transfer (QC): 6 Car Transfer (QC): 6 Does the Patient Walk: No and Walking Goal IS indicated Walk 10 feet (QC): 6 Walk 50ft with 2 Turns (QC): 6 Walk 150 ft (QC): 6 Walking 10ft on Uneven Surface: 6 1 Step (curb) (QC): 6 4 Steps (QC): 6 12 Steps (QC): 4 Picking up an Object (QC): 4 Does the Pt use WC or Scooter?: Yes Wheel 50 feet with 2 turns (QC: 6 Type: Manual Wheel 150 feet: 6 PT Plan Problem List Problem List: Activity Tolerance, Functional Strength, Safety, Balance, Gait, Transfer, Bed Mobility, ROM Treatment/Plan Treatment Plan: Continue Plan of Care Treatment Plan: Bed Mobility, Education, Functional Activity [place], Functional Strength, Group Therapy, Gait, Safety, Therapeutic Exercise, Transfers Treatment Duration: Sep 28, 2020 Frequency: At least 5 of 7 days/Wk (IRF) Estimated Hrs Per Day: 1.5 hours per day Patient and/or Family Agrees t: Yes Safety Risks/Education Patient Education: Transfer Techniques, Correct Positioning, W/C Management, Safety Issues Teaching Recipient: Patient Teaching Methods: Demonstration, Discussion Response to Teaching: Reinforcement Needed Time/GCodes Time In: 1300 Time Out: 1330 Total Billed Treatment Time: 30 Total Billed Treatment 1 visit EX 10' FA 20' ARIEL CHU PT Sep 19, 2020 13:57
[2020-09-19] MEDS ORDERED: LISI40TA9 PO (14:30)
[2020-09-19] MEDS ORDERED: NAPR-915 PO (14:30)
[2020-09-19] MEDS ORDERED: TIZA4TAB4 PO (14:50)
[2020-09-19] MEDS: MEROPENEM 500 MG in WATER (STERILE) FOR INJECTION 10 ML IV SCH ×2 (14:54→20:50)
[2020-09-19 16:00] VITALS: BP 138/80
[2020-09-19] MEDS: ACETAMINOPHEN 325 MG TABLET PO PRN (17:10)
[2020-09-19] MEDS: traZODone 100 MG (DESYREL) TAB PO SCH (20:51)
[2020-09-20] MEDS: MEROPENEM 500 MG in WATER (STERILE) FOR INJECTION 10 ML IV SCH ×4 (02:48→21:03)
[2020-09-20 05:51] VITALS: BP 137/78
[2020-09-20] MEDS: MULTIVIT W/MINERALS TAB (THERAGRAN M) PO SCH (06:15)
[2020-09-20] MEDS: metFORMIN 500 MG (GLUCOPHAGE) TAB PO SCH ×2 (07:49→17:53)
[2020-09-20] MEDS: ASCORBIC ACID (VIT C) 500 MG TABLET PO SCH ×2 (07:49→17:53)
[2020-09-20] MEDS: LINAGLIPTIN (TRADJENTA) 5 MG TABLET PO SCH (07:50)
[2020-09-20] MEDS: meTOprolol SUCCINATE 100 MG (TOPROL XL) TAB PO SCH (07:50)
[2020-09-20] MEDS: ZINC SULFATE 220 MG CAPSULE PO SCH (07:50)
[2020-09-20] MEDS: LACTOBACILLUS ACIDOPHILUS (PROBIOTIC) CAPSULE PO SCH ×2 (07:50→21:03)
[2020-09-20] MEDS: ENOXAPARIN 60 MG/0.6 ML (LOVENOX) SYR SC SCH ×2 (07:51→21:03)
[2020-09-20] MEDS: fluCOnazole (DIFLUCAN) 100 MG TAB PO SCH (07:51)
[2020-09-20] MEDS: toPIRamate 25 MG (TOPAMAX) TAB PO SCH ×2 (07:51→21:04)
[2020-09-20] MEDS: DOCUSATE SODIUM 100 MG (COLACE) CAP PO SCH ×2 (08:33→21:00)
[2020-09-20] MEDS: polyethylene glycoL POWDER 17 GM (MIRALAX) PACK PO SCH ×2 (08:34→21:00)
[2020-09-20] MEDS: SENNA W/DOCUSATE (SENOKOT S) TABLET PO SCH ×2 (08:34→21:00)
--- NOTE | 2020-09-20 09:12 | PM&R Progress Note ---
Subjective HPI/CC On Admission Date Seen by Provider: Sep 20, 2020 Time Seen by Provider: 09:15 Subjective/Events-last exam 09/20/20: Pt doing very well Wants to know when he can get his knee replaced Dr. Bynum will see him as an outpatient Dr. Hooper will update him about his wound management Meropenem maintained for UTI since I suspect ESBL Improved dysuria Bowels are moving well Pain is controlled 09/19/20: Pt doing a lot better Shower was uneventful Dressing change, it looks good. Bowels moved yesterday Voiding well since removed catheter Transferring a lot better Dysuria reported and he thinks he has a UTI so will check UA 09/18/20: Pt doing very well Catheter has been discontinued and if he cant void and has retention, we will consult urology Labs stable Will use commode instead of using bedpan from here on out Overall motivated to improve 09/17/20: Full code now since he was DNR when they contemplated removing his penis and testicles so changed to full code in EMR Dr Hooper saw the patient DC catheter tomorrow and if retention occurs will consult Urology BM treatment 09/16/20: Patient denies pain. Daughter at bedside Appreciate Dr Hooper guidance on wound Changed dressing today Knee injections went well yesterday 4600 output in lama 09/15/20: Patient doing well Knee injections will be performed this afternoon Dr Hooper consulted for wound care Wound vac contemplated Yeast infection noted so will initiate Diflucan and wound care will initiate topicals per protocol No issues otherwise Review of Systems General: Fatigue, Malaise Musculoskeletal: leg pain Objective Exam Vital Signs Vital Signs Date Time Temp Pulse Resp B/P (MAP) Pulse Ox O2 Delivery O2 Flow Rate FiO2 09/20/20 20:05 96 Room Air 09/20/20 17:54 36.3 95 16 138/72 (94) Capillary Refill : General Appearance: No Apparent Distress, Obese (super morbidly) HEENT: PERRL/EOMI Respiratory: Lungs Clear, No Accessory Muscle Use, No Respiratory Distress Cardiovascular: Regular Rate, Rhythm, No Murmur Gastrointestinal: Normal Bowel Sounds, No Organomegaly, No Pulsatile Mass, Non Tender, Soft Back: Normal Inspection, No CVA Tenderness, No Vertebral Tenderness Extremity: Non Tender Neurologic/Psychiatric: Alert, Oriented x3 Skin: Other (dressing to scrotum c/d/i, lama in place. almost no erythema in inguinal creases) Results/Procedures Lab Patient resulted labs reviewed. FIM Transfers Therapy Code Descriptions/Definitions Functional [place] Measure: 0=Not Assessed/NA 4=Minimal Assistance 1=Total Assistance 5=Supervision or Setup 2=Maximal Assistance 6=Modified [place] 3=Moderate Assistance 7=Complete IndependenceSCALE: Activities may be completed with or without assistive devices. 6-Irlrerbhgy-nffxiuo completes the activity by him/herself with no assistance from a helper. 5-Set-up or Clean-up Assistance-helper sets up or cleans up; patient completes activity. [place] assists only prior to or following the activity. 4-Supervision or Touching Assistance-helper provides verbal cues and/or touching/steadying and/or contact guard assistance as patient completes activity. Assistance may be provided throughout the activity or intermittently. 3-Partial/Moderate Assistance-helper does LESS THAN HALF the effort. [place] lifts, holds or supports trunk or limbs, but provides less than half the effort. 2-Substantial/Maximal Assistance-helper does MORE THAN HALF the effort. [place] lifts or holds trunk or limbs and provides more than half the effort. 3-Xnqbxrmvv-aaiiyt does ALL the effort. Patient does none of the effort to complete the activity. Or, the assistance of 2 or more helpers is required for the patient to complete the activity. If activity was not attempted, code reason: 7-Patient Refused. 9-Not Applicable-not attempted and the patient did not perform the activity before the current illness, exacerbation or injury. 10-Not Attempted due to Environmental Limitations-(lack of equipment, weather restraints, etc.). 88-Not Attempted due to Medical Conditions or Safety Concerns. Roll Left to Right (QC): 6 Sit to Lying (QC): 4 Sit to Stand (QC): 4 Chair/Ffw-ig-Ggybs Xfer(QC): 4 Car Transfer (QC): 7 (Declined due to painful WB activity for transfer. ) Gait Training Does the Patient Walk?: No and Walking Goal IS indicated Distance: 20'x3 Walk 10 feet (QC): 4 Walk 50 ft with 2 Turns(QC): 7 Walk 150 ft (QC): 7 Walking 10ft/uneven surface-QC: 7 Gait Persons Needed: 1 Gait Assistive Device: FWW Wheelchair Training Does the Pt Use a Wheelchair?: Yes Wheel 50 ft with 2 turns (QC): 4 Wheel 150 ft (QC): 4 Type of Wheelchair: Manual Stair Training 1 Step (curb) (QC): 7 4 Steps (QC): 7 12 Steps (QC): 7 Balance Picking up an Object (QC): 88 ADL-Treatment Eating (QC): 6 Oral Hygiene (QC): 7 Shower/Bathe Self (QC): 5 Upper Body Dressing (QC): 5 Lower Body Dressing (QC): 5 On/Off Footwear (QC): 2 Toileting Hygiene (QC): 6 Toilet Transfer (QC): 6 Assessment/Plan Assessment and Plan Assess & Plan/Chief Complaint 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 DM HTN Obesity Knee pain requiring steroid injections every 3 months by PCP Dysuria 08/22/20 checking UA Plan: IRF protocol Knee xrays Home meds Pain control 09/15/20: Knee injections Appreciate Dr Bynum and Blas Buchanan Knee xrays discussed IRF protocol Dr Hooper appreciated 09/16/20: Dr Hooper consult Monitor UOP Pain control Knee injections appreciated 09/17/20: Monitor closely DC catheter tomorrow BM regimen 09/18/20: DC catheter Monitor for retention Wound care appreciated 09/19/20: Check UA Monitor closely 09/20/20: Monitor UCx Meropenem due to high risk for resistant organism (1) Jose gangrene GISELLE CARBONE DO Sep 20, 2020 09:12
--- NOTE | 2020-09-20 09:37 | Physical Therapy Daily Note ---
PT Daily Note-Current Subjective Pt agreeable. Pt c/o knee pain (L) >(R). Knee pain rated 7/10 during ambulation and 3/10 "tolerable" during sitting activities. Pt motivated to walk further today and to achieve atleast 700 steps on Nu-step vs the 600 steps he did yesterday. Mental Status Patient Orientation: Person, Place, Situation Transfers SCALE: Activities may be completed with or without assistive devices. 3-Nkkemenopv-exgxmfu completes the activity by him/herself with no assistance from a helper. 5-Set-up or Clean-up Assistance-helper sets up or cleans up; patient completes activity. [place] assists only prior to or following the activity. 4-Supervision or Touching Assistance-helper provides verbal cues and/or touching/steadying and/or contact guard assistance as patient completes activity. Assistance may be provided throughout the activity or intermittently. 3-Partial/Moderate Assistance-helper does LESS THAN HALF the effort. [place] lifts, holds or supports trunk or limbs, but provides less than half the effort. 2-Substantial/Maximal Assistance-helper does MORE THAN HALF the effort. [place] lifts or holds trunk or limbs and provides more than half the effort. 8-Alovgprgt-nwxbrd does ALL the effort. Patient does none of the effort to complete the activity. Or, the assistance of 2 or more helpers is required for the patient to complete the activity. If activity was not attempted, code reason: 7-Patient Refused. 9-Not Applicable-not attempted and the patient did not perform the activity before the current illness, exacerbation or injury. 10-Not Attempted due to Environmental Limitations-(lack of equipment, weather restraints, etc.). 88-Not Attempted due to Medical Conditions or Safety Concerns. SPT mod (I) but with effort Weight Bearing Right Lower Extremity: Right Full Weight Bearing Left Lower Extremity: Left Full Weight Bearing Gait Training Gait Assistive Device: FWW Pt amb with FWW, CGA and f/u of w/c total of 290ft (1x 130ft, 1 x 110ft, 1 x 50ft). Pt rested in w/c 1-3 min between bouts. Wheelchair Training Type of Wheelchair: Manual Pt self propelled w/c x 125ft Exercises NuStep Minutes: 20 NuStep Workload: 3 Treatments Co-treat with OT due to severe pain with activity in (B) knees and limited activity tolerance. Pt amb with FWW and CGA, f/u of w/c for co-treat. OT intervention included energy conservation and safety awareness during gait training. PT intervention included gait training, safe mobility training and endurance training. Pt performed LE strengthening: AP, heel raise in sitting, LAQ, hamcurl with RTB, hamstring stretching x 30-60sec each, QS all x 20-30 reps ea. Assessment Current Status: Good Progress Pt exceeded his personal goal for walking and nu-step today. Pt appeared to tolerate above activities well despite high pain denotation. Pt ambulation di stance increased but still limited by (L) knee pain. (L) knee unable to fully extend during ambulation. Pt tends to ER(L) LE during all activities. Pt would benefit from continued therapy to restore functional mobility and improve LE strength. Pt back to room in w/c with call light in reach and all needs met. PT Short Term Goals Short Term Goals Time Frame: Sep 21, 2020 Sit to stand: 4 Chair/mhl-cf-fbklb transfer: 4 Walk 150 feet: 4 PT Jail Goals Basket Weaver Goals PT Jail Goals Time Frame: Sep 28, 2020 Roll Left & Right (QC): 6 Sit to Lying (QC): 6 Lying-Sitting on Side/Bed(QC): 6 Sit to Stand (QC): 6 Chair/Abj-oi-Yvfkb Xfer(QC): 6 Toilet Transfer (QC): 6 Car Transfer (QC): 6 Does the Patient Walk: No and Walking Goal IS indicated Walk 10 feet (QC): 6 Walk 50ft with 2 Turns (QC): 6 Walk 150 ft (QC): 6 Walking 10ft on Uneven Surface: 6 1 Step (curb) (QC): 6 4 Steps (QC): 6 12 Steps (QC): 4 Picking up an Object (QC): 4 Does the Pt use WC or Scooter?: Yes Wheel 50 feet with 2 turns (QC: 6 Type: Manual Wheel 150 feet: 6 PT Plan Treatment/Plan Treatment Plan: Continue Plan of Care Treatment Plan: Bed Mobility, Education, Functional Activity [place], Functional Strength, Group Therapy, Gait, Safety, Therapeutic Exercise, Transfers Treatment Duration: Sep 28, 2020 Frequency: At least 5 of 7 days/Wk (IRF) Estimated Hrs Per Day: 1.5 hours per day Patient and/or Family Agrees t: Yes Time/GCodes Time In: 900 Time Out: 1000 Total Billed Treatment Time: 60 Total Billed Treatment 1, gait x 30', ther ex 30' (Co-treat with OT x 30', total treatment time 60') FABIAN REYNOLDS CPTA Sep 20, 2020 09:37
[2020-09-20] MEDS: MICONAZOLE 2% POWDER (DESENEX AF) 90 GM TOP SCH ×2 (10:30→21:14)
--- NOTE | 2020-09-20 11:40 | Physical Therapy Daily Note ---
PT Daily Note-Current Subjective Pt denies pain "It's doing fine." Pt agreeable to treatment and happy to go outside and get fresh air. Mental Status Patient Orientation: Person, Place, Situation Transfers SCALE: Activities may be completed with or without assistive devices. 4-Bzdpymahwd-rxiyvdq completes the activity by him/herself with no assistance from a helper. 5-Set-up or Clean-up Assistance-helper sets up or cleans up; patient completes activity. [place] assists only prior to or following the activity. 4-Supervision or Touching Assistance-helper provides verbal cues and/or touching/steadying and/or contact guard assistance as patient completes ac tivity. Assistance may be provided throughout the activity or intermittently. 3-Partial/Moderate Assistance-helper does LESS THAN HALF the effort. [place] lifts, holds or supports trunk or limbs, but provides less than half the effort. 2-Substantial/Maximal Assistance-helper does MORE THAN HALF the effort. [place] lifts or holds trunk or limbs and provides more than half the effort. 6-Xgbkhhdzz-kijcsz does ALL the effort. Patient does none of the effort to complete the activity. Or, the assistance of 2 or more helpers is required for the patient to complete the activity. If activity was not attempted, code reason: 7-Patient Refused. 9-Not Applicable-not attempted and the patient did not perform the activity before the current illness, exacerbation or injury. 10-Not Attempted due to Environmental Limitations-(lack of equipment, weather restraints, etc.). 88-Not Attempted due to Medical Conditions or Safety Concerns. Weight Bearing Right Lower Extremity: Right Full Weight Bearing Left Lower Extremity: Left Full Weight Bearing Wheelchair Training Type of Wheelchair: Manual w/c mobility training off floor to outside courtyard including: down halls, elevator, through doors, over thresholds, up/down incline, over rough surfaces all with assist as needed. Assessment Current Status: Good Progress Pt sneha well without c/o pain. Pt back to room with call light in reach, all needs met. PT Short Term Goals Short Term Goals Time Frame: Sep 21, 2020 Sit to stand: 4 Chair/xjw-kc-egtkd transfer: 4 Walk 150 feet: 4 PT Half-Way Goals Half-Way Goals PT Half-Way Goals Time Frame: Sep 28, 2020 Roll Left & Right (QC): 6 Sit to Lying (QC): 6 Lying-Sitting on Side/Bed(QC): 6 Sit to Stand (QC): 6 Chair/Yti-it-Swusz Xfer(QC): 6 Toilet Transfer (QC): 6 Car Transfer (QC): 6 Does the Patient Walk: No and Walking Goal IS indicated Walk 10 feet (QC): 6 Walk 50ft with 2 Turns (QC): 6 Walk 150 ft (QC): 6 Walking 10ft on Uneven Surface: 6 1 Step (curb) (QC): 6 4 Steps (QC): 6 12 Steps (QC): 4 Picking up an Object (QC): 4 Does the Pt use WC or Scooter?: Yes Wheel 50 feet with 2 turns (QC: 6 Type: Manual Wheel 150 feet: 6 PT Plan Treatment/Plan Treatment Plan: Continue Plan of Care Treatment Plan: Bed Mobility, Education, Functional Activity [place], Functional Strength, Group Therapy, Gait, Safety, Therapeutic Exercise, Transfers Treatment Duration: Sep 28, 2020 Frequency: At least 5 of 7 days/Wk (IRF) Estimated Hrs Per Day: 1.5 hours per day Patient and/or Family Agrees t: Yes Time/GCodes Time In: 1100 Time Out: 1130 Total Billed Treatment Time: 30 Total Billed Treatment 1, FA x 30' FABIAN REYNOLDS Sep 20, 2020 11:40
--- NOTE | 2020-09-20 15:19 | Occupational Ther Daily Note ---
OT Current Status-Daily Note Subjective Pt. reported pain in left knee, but does not report pain level. Pt. has just had pain pill from nursing. Appearance Pt. in bed. Alert. Already dressed. Agrees to treatment. Mental Status/Objective Patient Orientation: Person, Place, Time, Situation Attachments: IV ADL-Treatment Therapy Code Descriptions/Definitions Functional [place] Measure: 0=Not Assessed/NA 4=Minimal Assistance 1=Total Assistance 5=Supervision or Setup 2=Maximal Assistance 6=Modified [place] 3=Moderate Assistance 7=Complete IndependenceSCALE: Activities may be completed with or without assistive devices. 6-Hedktzacmw-kzmyuxn completes the activity by him/herself with no assistance from a helper. 5-Set-up or Clean-up Assistance-helper sets up or cleans up; patient completes activity. [place] assists only prior to or following the activity. 4-Supervision or Touching Assistance-helper provides verbal cues and/or touching/steadying and/or contact guard assistance as patient completes activity. Assistance may be provided throughout the activity or intermittently. 3-Partial/Moderate Assistance-helper does LESS THAN HALF the effort. [place] lifts, holds or supports trunk or limbs, but provides less than half the effort. 2-Substantial/Maximal Assistance-helper does MORE THAN HALF the effort. [place] lifts or holds trunk or limbs and provides more than half the effort. 7-Looimwqca-okfwjs does ALL the effort. Patient does none of the effort to complete the activity. Or, the assistance of 2 or more helpers is required for the patient to complete the activity. If activity was not attempted, code reason: 7-Patient Refused. 9-Not Applicable-not attempted and the patient did not perform the activity before the current illness, exacerbation or injury. 10-Not Attempted due to Environmental Limitations-(lack of equipment, weather restraints, etc.). 88-Not Attempted due to Medical Conditions or Safety Concerns. Pt. transferred supine-sit with Mod I. Transferred sit-stand with SBA, and transferred to wheelchair with SBA. Pt. self propelled wheelchair to therapy gym with Mod I. Once in gym, pt. completed arm bike x 15 minutes at [facility] to increase overall strength and independence. OT and pt. talked about tasks at home that he will have to complete, and what he will need to practice at this facility. Pt. declines practicing kitchen task or laundry task. He states that he has a specific rolling chair in kitchen that he uses, and will use at his new place to get around with. Pt. verbalizes that he has used this method for years, and will not change. Pt. declines practicing laundry, as he will have assist from this from either home health aide, or daughter. His laundry facility is outside of his new building. PT comes in to work with OT and pt. as well, as pt would like to ambulate. PT facilitated mobility in stance with walker, as OT worked on energy conservation techniques with rest breaks, and hand placement on walker. Please see PT note for distance ambulated. Pt. ambulated several times, with rest breaks in between. Utilized walker with wheelchair follow. Pt. up with PT at end of OT session. Education OT Patient Education: Correct positioning, Exercise program, Progress toward Goal/Update tx plan, Purpose of tx/functional activities, Reviewed precautions, Rehab process, Transfer techniques Teaching Recipient: Patient Teaching Methods: Demonstration, Discussion Response to Teaching: Verbalize Understanding, Return Demonstration OT Short Term Goals Short Term Goals Time Frame: Sep 21, 2020 Eatin Oral hygiene: 5 Toileting hygiene: 4 Shower/bathe self: 4 Upper body dressin Lower body dressin Putting on/taking off footwear: 4 OT Custodial Goals Custodial Goals Time Frame: Sep 28, 2020 Eating (QC): 6 Oral Hygiene (QC): 6 Toileting Hygiene (QC): 6 Shower/Bathe Self (QC): 4 Upper Body Dressing (QC): 6 Lower Body Dressing (QC): 6 On/Off Footwear (QC): 6 Additional Goals: 1-Demonstrate ADL Tasks, 2-Verbalize Understanding, 3- ImproveStrength/[place] 1=Demonstrate adherence to instructed precautions during ADL tasks. 2=Patient will verbalize/demonstrate understanding of assistive devices/modifications for ADL. 3=Patient will improve strength/tolerance for activity to enable patient to perform ADL's. OT Education/Plan Problem List/Assessment Assessment: Decreased Activ Tolerance, Impaired I ADL's Discharge Recommendations Plan/Recommendations: Continue POC Therapy Discharge Recommendati: Home & Family Treatment Plan/Plan of Care Treatment,Training & Education: Yes Patient would benefit from OT for education, treatment and training to promote independence in ADL's, mobility, safety and/or upper extremity function for ADL's. Plan of Care: ADL Retraining, Functional Mobility, UE Funct Exercise/Act Treatment Duration: Sep 28, 2020 Frequency: At least 5 of 7 days/Wk (IRF) Estimated Hrs Per Day: 1.5 hours per day Agreement: Yes Rehab Potential: Good Time/GCodes Start Time: 08:30 Stop Time: 09:30 Total Time Billed (hr/min): 60 Billed Treatment Time 8839-9749 1, Ex x 30minutes [id number] FA x [id number] with PT. Please see above note for designated roles. BRENDAN BARBOZA OT Sep 20, 2020 15:19
--- NOTE | 2020-09-20 15:31 | Occupational Ther Daily Note ---
OT Current Status-Daily Note Subjective No pain reported. Mental Status/Objective Patient Orientation: Person, Place, Time, Situation ADL-Treatment Therapy Code Descriptions/Definitions Functional [place] Measure: 0=Not Assessed/NA 4=Minimal Assistance 1=Total Assistance 5=Supervision or Setup 2=Maximal Assistance 6=Modified [place] 3=Moderate Assistance 7=Complete IndependenceSCALE: Activities may be completed with or without assistive devices. 2-Sbflgylnwj-xnyljsq completes the activity by him/herself with no assistance from a helper. 5-Set-up or Clean-up Assistance-helper sets up or cleans up; patient completes activity. [place] assists only prior to or following the activity. 4-Supervision or Touching Assistance-helper provides verbal cues and/or touching/steadying and/or contact guard assistance as patient completes activity. Assistance may be provided throughout the activity or intermittently. 3-Partial/Moderate Assistance-helper does LESS THAN HALF the effort. [place] lifts, holds or supports trunk or limbs, but provides less than half the effort. 2-Substantial/Maximal Assistance-helper does MORE THAN HALF the effort. [place] lifts or holds trunk or limbs and provides more than half the effort. 8-Xxosrhwqz-nqfjsh does ALL the effort. Patient does none of the effort to complete the activity. Or, the assistance of 2 or more helpers is required for the patient to complete the activity. If activity was not attempted, code reason: 7-Patient Refused. 9-Not Applicable-not attempted and the patient did not perform the activity before the current illness, exacerbation or injury. 10-Not Attempted due to Environmental Limitations-(lack of equipment, weather restraints, etc.). 88-Not Attempted due to Medical Conditions or Safety Concerns. Other Treatment Pt. up in wheelchair. Agrees to work with OT. Self propelled to therapy gym with Mod I. Completed 18 minutes on arm bike at mod resistance with no difficulty, to increase overall strength and independence. All needs met back in room. Education OT Patient Education: Correct positioning, Exercise program Teaching Recipient: Patient Teaching Methods: Demonstration, Discussion Response to Teaching: Verbalize Understanding, Return Demonstration OT Short Term Goals Short Term Goals Time Frame: Sep 21, 2020 Eatin Oral hygiene: 5 Toileting hygiene: 4 Shower/bathe self: 4 Upper body dressin Lower body dressin Putting on/taking off footwear: 4 OT [facility] Goals Hydro Operator Goals Time Frame: Sep 28, 2020 Eating (QC): 6 Oral Hygiene (QC): 6 Toileting Hygiene (QC): 6 Shower/Bathe Self (QC): 4 Upper Body Dressing (QC): 6 Lower Body Dressing (QC): 6 On/Off Footwear (QC): 6 Additional Goals: 1-Demonstrate ADL Tasks, 2-Verbalize Understanding, 3- ImproveStrength/[place] 1=Demonstrate adherence to instructed precautions during ADL tasks. 2=Patient will verbalize/demonstrate understanding of assistive devices/modifications for ADL. 3=Patient will improve strength/tolerance for activity to enable patient to perform ADL's. OT Education/Plan Problem List/Assessment Assessment: Decreased Activ Tolerance Discharge Recommendations Plan/Recommendations: Continue POC Treatment Plan/Plan of Care Treatment,Training & Education: Yes Patient would benefit from OT for education, treatment and training to promote independence in ADL's, mobility, safety and/or upper extremity function for ADL's. Plan of Care: ADL Retraining, Functional Mobility, UE Funct Exercise/Act Treatment Duration: Sep 28, 2020 Frequency: At least 5 of 7 days/Wk (IRF) Estimated Hrs Per Day: 1.5 hours per day Agreement: Yes Rehab Potential: Good Time/GCodes Start Time: 13:30 Stop Time: 14:00 Total Time Billed (hr/min): 30 Billed Treatment Time 1, FA x 2 BRENDAN BARBOZA OT Sep 20, 2020 15:31
[2020-09-20 17:54] VITALS: BP 138/72
[2020-09-20] MEDS: traZODone 100 MG (DESYREL) TAB PO SCH (21:04)
[2020-09-21] MEDS: MEROPENEM 500 MG in WATER (STERILE) FOR INJECTION 10 ML IV SCH ×2 (03:01→09:01)
[2020-09-21 05:26] VITALS: BP 160/84
[2020-09-21] MEDS: MULTIVIT W/MINERALS TAB (THERAGRAN M) PO SCH (06:27)
[2020-09-21] MEDS: metFORMIN 500 MG (GLUCOPHAGE) TAB PO SCH ×2 (09:01→18:00)
[2020-09-21] MEDS: ASCORBIC ACID (VIT C) 500 MG TABLET PO SCH ×2 (09:02→18:00)
[2020-09-21] MEDS: ZINC SULFATE 220 MG CAPSULE PO SCH (09:02)
[2020-09-21] MEDS: LINAGLIPTIN (TRADJENTA) 5 MG TABLET PO SCH (09:52)
[2020-09-21] MEDS: toPIRamate 25 MG (TOPAMAX) TAB PO SCH ×2 (09:52→22:02)
[2020-09-21] MEDS: LACTOBACILLUS ACIDOPHILUS (PROBIOTIC) CAPSULE PO SCH ×2 (09:52→22:03)
[2020-09-21] MEDS: fluCOnazole (DIFLUCAN) 100 MG TAB PO SCH (09:52)
[2020-09-21] MEDS: MICONAZOLE 2% POWDER (DESENEX AF) 90 GM TOP SCH ×2 (09:53→22:03)
[2020-09-21] MEDS: SENNA W/DOCUSATE (SENOKOT S) TABLET PO SCH ×2 (09:53→22:00)
[2020-09-21] MEDS: ENOXAPARIN 60 MG/0.6 ML (LOVENOX) SYR SC SCH ×2 (09:53→22:01)
[2020-09-21] MEDS: polyethylene glycoL POWDER 17 GM (MIRALAX) PACK PO SCH ×2 (09:53→22:00)
[2020-09-21] MEDS: DOCUSATE SODIUM 100 MG (COLACE) CAP PO SCH ×2 (09:53→22:00)
[2020-09-21] MEDS: meTOprolol SUCCINATE 100 MG (TOPROL XL) TAB PO SCH (09:53)
--- NOTE | 2020-09-21 09:57 | Physical Therapy Daily Note ---
PT Daily Note-Current Subjective Patient in WC pre tx, agrees to PT, has unrated pain in both knees but worse in left knee. Will be co-treating with OT due to poor patient mobility, endurance, severe pain with activity, coordinate UE and LE during activity, safety and reduce risk of falls. Appearance Patient is WC in room post tx with nurse call, phone, tray, all needs met. Patient has pain of 8/10 in left knee, nurse notified. Mental Status Patient Orientation: Normal For Age Transfers SCALE: Activities may be completed with or without assistive devices. 6-Hgqbpanzou-zaqnuzr completes the activity by him/herself with no assistance from a helper. 5-Set-up or Clean-up Assistance-helper sets up or cleans up; patient completes activity. [place] assists only prior to or following the activity. 4-Supervision or Touching Assistance-helper provides verbal cues and/or touching/steadying and/or contact guard assistance as patient completes activity. Assistance may be provided throughout the activity or intermittently. 3-Partial/Moderate Assistance-helper does LESS THAN HALF the effort. [place] lifts, holds or supports trunk or limbs, but provides less than half the effort. 2-Substantial/Maximal Assistance-helper does MORE THAN HALF the effort. [place] lifts or holds trunk or limbs and provides more than half the effort. 0-Ekoikrjdx-zzmprt does ALL the effort. Patient does none of the effort to complete the activity. Or, the assistance of 2 or more helpers is required for the patient to complete the activity. If activity was not attempted, code reason: 7-Patient Refused. 9-Not Applicable-not attempted and the patient did not perform the activity before the current illness, exacerbation or injury. 10-Not Attempted due to Environmental Limitations-(lack of equipment, weather restraints, etc.). 88-Not Attempted due to Medical Conditions or Safety Concerns. Sit to Stand (QC): 4 Chair/Oxt-ph-Sohbo Xfer(QC): 4 SBA Weight Bearing Right Lower Extremity: Right Full Weight Bearing Left Lower Extremity: Left Full Weight Bearing Gait Training Distance: 150'x2, 100' Walk 10 feet (QC): 4 Walk 50 ft with 2 Turns(QC): 4 Walk 150 ft (QC): 4 Gait Assistive Device: FWW follow, severe pain in both knees but worse in left. Exercises standing activity reaching for cones without UE support NuStep Minutes: 15 NuStep Workload: 4 Treatments PT worked on transfers, ambulation, standing, LE exercise, OT worked on UE positioning and safety during activity, UE reaching activity, assisted with ambulation Assessment Current Status: Fair Progress improving ambulation but had more knee pain PT Short Term Goals Short Term Goals Time Frame: Sep 21, 2020 Sit to stand: 4 Chair/pah-hg-ksktt transfer: 4 Walk 150 feet: 4 PT Half-Way Goals Half-Way Goals PT Supervisor Post Wave Goals Time Frame: Sep 28, 2020 Roll Left & Right (QC): 6 Sit to Lying (QC): 6 Lying-Sitting on Side/Bed(QC): 6 Sit to Stand (QC): 6 Chair/Pgc-ia-Tcehh Xfer(QC): 6 Toilet Transfer (QC): 6 Car Transfer (QC): 6 Does the Patient Walk: No and Walking Goal IS indicated Walk 10 feet (QC): 6 Walk 50ft with 2 Turns (QC): 6 Walk 150 ft (QC): 6 Walking 10ft on Uneven Surface: 6 1 Step (curb) (QC): 6 4 Steps (QC): 6 12 Steps (QC): 4 Picking up an Object (QC): 4 Does the Pt use WC or Scooter?: Yes Wheel 50 feet with 2 turns (QC: 6 Type: Manual Wheel 150 feet: 6 PT Plan Problem List Problem List: Activity Tolerance, Functional Strength, Safety, Balance, Gait, Transfer, Bed Mobility, ROM Treatment/Plan Treatment Plan: Continue Plan of Care Treatment Plan: Bed Mobility, Education, Functional Activity [place], Functional Strength, Group Therapy, Gait, Safety, Therapeutic Exercise, Transfers Treatment Duration: Sep 28, 2020 Frequency: At least 5 of 7 days/Wk (IRF) Estimated Hrs Per Day: 1.5 hours per day Patient and/or Family Agrees t: Yes Safety Risks/Education Patient Education: Gait Training, Transfer Techniques, Correct Positioning, W/C Management, Safety Issues Teaching Recipient: Patient Teaching Methods: Demonstration, Discussion Response to Teaching: Reinforcement Needed Time/GCodes Time In: 0900 Time Out: 1000 Total Billed Treatment Time: 60 Total Billed Treatment 1 visit GT 30' EX 30' co-treated with OT for 30' from [id number] ARIEL CHU PT Sep 21, 2020 09:57
[2020-09-21] MEDS ORDERED: NITROFURANTOIN 100 MG (MACROBID) CAPSULE PO NR (12:00)
[2020-09-21] MEDS: NAPROXEN 250 MG (NAPROSYN) TABLET PO SCH ×2 (12:02→22:03)
--- NOTE | 2020-09-21 12:02 | PM&R Progress Note ---
Subjective HPI/CC On Admission Date Seen by Provider: Sep 21, 2020 Time Seen by Provider: 11:45 Subjective/Events-last exam 09/21/20: Pt had a really good night of sleep last night Doing very well Naproxen 500mg twice daily will be started Overall feels very good Wound is healing well Pansensitive UCx so will start o Macrobid and DC Katelin 09/20/20: Pt doing very well Wants to know when he can get his knee replaced Dr. Bynum will see him as an outpatient Dr. Hooper will update him about his wound management Meropenem maintained for UTI since I suspect ESBL Improved dysuria Bowels are moving well Pain is controlled 09/19/20: Pt doing a lot better Shower was uneventful Dressing change, it looks good. Bowels moved yesterday Voiding well since removed catheter Transferring a lot better Dysuria reported and he thinks he has a UTI so will check UA 09/18/20: Pt doing very well Catheter has been discontinued and if he cant void and has retention, we will consult urology Labs stable Will use commode instead of using bedpan from here on out Overall motivated to improve 09/17/20: Full code now since he was DNR when they contemplated removing his penis and testicles so changed to full code in EMR Dr Hooper saw the patient DC catheter tomorrow and if retention occurs will consult Urology BM treatment 09/16/20: Patient denies pain. Daughter at bedside Appreciate Dr Hooper guidance on wound Changed dressing today Knee injections went well yesterday 4600 output in lama 09/15/20: Patient doing well Knee injections will be performed this afternoon Dr Hooper consulted for wound care Wound vac contemplated Yeast infection noted so will initiate Diflucan and wound care will initiate t opicals per protocol No issues otherwise Review of Systems General: Fatigue Objective Exam Vital Signs Vital Signs Date Time Temp Pulse Resp B/P (MAP) Pulse Ox O2 Delivery O2 Flow Rate FiO2 09/21/20 20:30 96 Room Air 09/21/20 16:00 36.4 88 16 113/62 (79) Capillary Refill : General Appearance: No Apparent Distress, WD/WN, Chronically ill, Obese (super morbidly) HEENT: PERRL/EOMI, Normal ENT Inspection, Pharynx Normal Neck: Full Range of Motion, Normal Inspection, Non Tender, Supple Respiratory: Lungs Clear, No Accessory Muscle Use, No Respiratory Distress Cardiovascular: Regular Rate, Rhythm, No Gallop, No JVD, No Murmur Gastrointestinal: Normal Bowel Sounds, No Organomegaly, No Pulsatile Mass, Non Tender, Soft Back: Normal Inspection, No CVA Tenderness, No Vertebral Tenderness Extremity: Normal Capillary Refill, Normal Inspection, Normal Range of Motion, Non Tender, No Calf Tenderness Neurologic/Psychiatric: Alert, Oriented x3, No Motor/Sensory Deficits, Normal Mood/Affect, auto camp attendant II-XII Norm as Tested, Motor Weakness (generalized ) Skin: Other (dressing to scrotum c/d/i, lama in place. almost no erythema in inguinal creases) Results/Procedures Lab Patient resulted labs reviewed. FIM Transfers Therapy Code Descriptions/Definitions Functional [place] Measure: 0=Not Assessed/NA 4=Minimal Assistance 1=Total Assistance 5=Supervision or Setup 2=Maximal Assistance 6=Modified [place] 3=Moderate Assistance 7=Complete IndependenceSCALE: Activities may be completed with or without assistive devices. 3-Kadqgrkofg-ejlsigu completes the activity by him/herself with no assistance from a helper. 5-Set-up or Clean-up Assistance-helper sets up or cleans up; patient completes activity. [place] assists only prior to or following the activity. 4-Supervision or Touching Assistance-helper provides verbal cues and/or touching/steadying and/or contact guard assistance as patient completes activity. Assistance may be provided throughout the activity or intermittently. 3-Partial/Moderate Assistance-helper does LESS THAN HALF the effort. [place] lifts, holds or supports trunk or limbs, but provides less than half the effort. 2-Substantial/Maximal Assistance-helper does MORE THAN HALF the effort. [place] lifts or holds trunk or limbs and provides more than half the effort. 7-Pucvxtzwv-ndybwg does ALL the effort. Patient does none of the effort to complete the activity. Or, the assistance of 2 or more helpers is required for the patient to complete the activity. If activity was not attempted, code reason: 7-Patient Refused. 9-Not Applicable-not attempted and the patient did not perform the activity before the current illness, exacerbation or injury. 10-Not Attempted due to Environmental Limitations-(lack of equipment, weather restraints, etc.). 88-Not Attempted due to Medical Conditions or Safety Concerns. Roll Left to Right (QC): 6 Sit to Lying (QC): 4 Sit to Stand (QC): 4 Chair/Wbh-bg-Kxdrc Xfer(QC): 4 Car Transfer (QC): 7 (Declined due to painful WB activity for transfer. ) Gait Training Does the Patient Walk?: No and Walking Goal IS indicated Distance: 150'x2, 100' Walk 10 feet (QC): 4 Walk 50 ft with 2 Turns(QC): 4 Walk 150 ft (QC): 4 Walking 10ft/uneven surface-QC: 7 Gait Persons Needed: 1 Gait Assistive Device: FWW Wheelchair Training Does the Pt Use a Wheelchair?: Yes Wheel 50 ft with 2 turns (QC): 4 Wheel 150 ft (QC): 4 Type of Wheelchair: Manual Stair Training 1 Step (curb) (QC): 7 4 Steps (QC): 7 12 Steps (QC): 7 Balance Picking up an Object (QC): 88 ADL-Treatment Eating (QC): 6 Oral Hygiene (QC): 7 Shower/Bathe Self (QC): 5 Upper Body Dressing (QC): 5 Lower Body Dressing (QC): 5 On/Off Footwear (QC): 2 Toileting Hygiene (QC): 6 Toilet Transfer (QC): 6 Assessment/Plan Assessment and Plan Assess & Plan/Chief Complaint 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 DM HTN Obesity Knee pain requiring steroid injections every 3 months by PCP Dysuria 08/22/20 checking UA dx with UTI suspected ESBL placed on Katelin but UCx pansensitive so placed on Macrobid 09/21/20 Plan: IRF protocol Knee xrays Home meds Pain control 09/15/20: Knee injections Appreciate Dr Bynum and Blas Buchanan Knee xrays discussed IRF protocol Dr Hooper appreciated 09/16/20: Dr Hooper consult Monitor UOP Pain control Knee injections appreciated 09/17/20: Monitor closely DC catheter tomorrow BM regimen 09/18/20: DC catheter Monitor for retention Wound care appreciated 09/19/20: Check UA Monitor closely 09/20/20: Monitor UCx Meropenem due to high risk for resistant organism 09/21/20: De-escalate abx and change to Macrobid Naproxen (1) Jose gangrene GISELLE CARBONE 4, 2021 12:02
--- NOTE | 2020-09-21 12:07 | Occupational Ther Daily Note ---
OT Current Status-Daily Note Subjective Pt. reports pain in knees with standing but does not state pain level. Pt. has already had pain medication. Nursing to check with physician regarding arthritis medication. Appearance Pt. up in chair. Agreeable to treatment. Mental Status/Objective Patient Orientation: Person, Place, Time, Situation Attachments: IV ADL-Treatment Therapy Code Descriptions/Definitions Functional [place] Measure: 0=Not Assessed/NA 4=Minimal Assistance 1=Total Assistance 5=Supervision or Setup 2=Maximal Assistance 6=Modified [place] 3=Moderate Assistance 7=Complete IndependenceSCALE: Activities may be completed with or without assistive devices. 5-Udqqpfibxh-zzwxjqr completes the activity by him/herself with no assistance from a helper. 5-Set-up or Clean-up Assistance-helper sets up or cleans up; patient completes activity. [place] assists only prior to or following the activity. 4-Supervision or Touching Assistance-helper provides verbal cues and/or touching/steadying and/or contact guard assistance as patient completes activity. Assistance may be provided throughout the activity or intermittently. 3-Partial/Moderate Assistance-helper does LESS THAN HALF the effort. [place] lifts, holds or supports trunk or limbs, but provides less than half the effort. 2-Substantial/Maximal Assistance-helper does MORE THAN HALF the effort. [place] lifts or holds trunk or limbs and provides more than half the effort. 9-Lzsmytdno-mujqih does ALL the effort. Patient does none of the effort to complete the activity. Or, the assistance of 2 or more helpers is required for the patient to complete the activity. If activity was not attempted, code reason: 7-Patient Refused. 9-Not Applicable-not attempted and the patient did not perform the activity before the current illness, exacerbation or injury. 10-Not Attempted due to Environmental Limitations-(lack of equipment, weather restraints, etc.). 88-Not Attempted due to Medical Conditions or Safety Concerns. Eating (QC): 6 Oral Hygiene (QC): 6 Shower/Bathe Self (QC): 7 Upper Body Dressing (QC): 6 Lower Body Dressing (QC): 6 On/Off Footwear: 6 Toileting Hygiene (QC): 6 Toilet Transfer (QC): 6 Other Treatment Pt. in bathroom when OT comes into room. Pt. is able to toilet self independently, and complete toilet transfer with Mod I. He is fully dressed, and has dressed self on his own prior to therapy. Pt. does self propel wheelchair to therapy gym independently. Pt. completes 20 minutes on arm bike at mod resistance to increase overall strength and endurance. Tolerates this well. Pt. then participates in standing activity with OT, in which he completes multiple sit-stands with Mod I using bar in gym. Pt. indicates pain and rests. PT came into therapy gym to assist with co-treatment for ambulation, as pt. would like to ambulate. Pt. is able to ambulate with walker and SBA with m ultiple rest breaks. Please see PT note for distance ambulated. PT focused on standing balance while OT addressed energy conservation with upright movement. After ambulation, pt. and therapy team went to gym. PT addressed standing balance and upright posture at bar with multiple stands, while OT facilitated weight shifts and dynamic balance, encouraging reach in all planes to grasp at cones. Pt. tolerates well. Pt. up with PT at end of session. Education OT Patient Education: Correct positioning, Exercise program, Modified ADL techniques, Progress toward Goal/Update tx plan, Purpose of tx/functional activities, Reviewed precautions, Rehab process, Transfer techniques Teaching Recipient: Patient Teaching Methods: Demonstration, Discussion Response to Teaching: Verbalize Understanding, Return Demonstration OT Short Term Goals Short Term Goals Time Frame: Sep 21, 2020 Eatin Oral hygiene: 5 Toileting hygiene: 4 Shower/bathe self: 4 Upper body dressin Lower body dressin Putting on/taking off footwear: 4 OT Longterm Goals [place] Goals Time Frame: Sep 28, 2020 Eating (QC): 6 Oral Hygiene (QC): 6 Toileting Hygiene (QC): 6 Shower/Bathe Self (QC): 4 Upper Body Dressing (QC): 6 Lower Body Dressing (QC): 6 On/Off Footwear (QC): 6 Additional Goals: 1-Demonstrate ADL Tasks, 2-Verbalize Understanding, 3- ImproveStrength/War[place] 1=Demonstrate adherence to instructed precautions during ADL tasks. 2=Patient will verbalize/demonstrate understanding of assistive devices/modifications for ADL. 3=Patient will improve strength/tolerance for activity to enable patient to perform ADL's. OT Education/Plan Problem List/Assessment Assessment: Decreased Activ Tolerance Discharge Recommendations Plan/Recommendations: Continue POC Therapy Discharge Recommendati: Home & Family Treatment Plan/Plan of Care Treatment,Training & Education: Yes Patient would benefit from OT for education, treatment and training to promote independence in ADL's, mobility, safety and/or upper extremity function for ADL's. Plan of Care: ADL Retraining, Functional Mobility, UE Funct Exercise/Act Treatment Duration: Sep 28, 2020 Frequency: At least 5 of 7 days/Wk (IRF) Estimated Hrs Per Day: 1.5 hours per day Agreement: Yes Rehab Potential: Good Time/GCodes Start Time: 08:30 Stop Time: 09:30 Total Time Billed (hr/min): 60 Billed Treatment Time 2850-8691 1, Ex x 15minutes, FA x 15minutes [id number] FA x 30minutes- Co-treatment with PT. Please see above note for designated roles. BRENDAN BARBOZA OT Sep 21, 2020 12:07
--- NOTE | 2020-09-21 13:46 | Physical Therapy Daily Note ---
PT Daily Note-Current Subjective Patient in therapy gym pre tx, agrees to PT, has 6/10 pain in knees. Appearance Patient in therapy gym post tx, has OT right after PT Mental Status Patient Orientation: Normal For Age Transfers SCALE: Activities may be completed with or without assistive devices. 8-Ohcvfksfpx-jcfsvtb completes the activity by him/herself with no assistance from a helper. 5-Set-up or Clean-up Assistance-helper sets up or cleans up; patient completes activity. [place] assists only prior to or following the activity. 4-Supervision or Touching Assistance-helper provides verbal cues and/or touching/steadying and/or contact guard assistance as patient completes activity. Assistance may be provided throughout the activity or intermittently. 3-Partial/Moderate Assistance-helper does LESS THAN HALF the effort. [place] lifts, holds or supports trunk or limbs, but provides less than half the effort. 2-Substantial/Maximal Assistance-helper does MORE THAN HALF the effort. [place] lifts or holds trunk or limbs and provides more than half the effort. 8-Manwbubkg-aoohiq does ALL the effort. Patient does none of the effort to comp lete the activity. Or, the assistance of 2 or more helpers is required for the patient to complete the activity. If activity was not attempted, code reason: 7-Patient Refused. 9-Not Applicable-not attempted and the patient did not perform the activity before the current illness, exacerbation or injury. 10-Not Attempted due to Environmental Limitations-(lack of equipment, weather restraints, etc.). 88-Not Attempted due to Medical Conditions or Safety Concerns. Sit to Stand (QC): 4 Chair/Ugi-cd-Lwgop Xfer(QC): 4 Weight Bearing Right Lower Extremity: Right Full Weight Bearing Left Lower Extremity: Left Full Weight Bearing Exercises LAQ alternating for 5 min with 2# ankle weights NuStep Minutes: 20 NuStep Workload: 4 Treatments LE exercise, transfers Assessment Current Status: Fair Progress less knee pain PT Short Term Goals Short Term Goals Time Frame: Sep 21, 2020 Sit to stand: 4 Chair/iat-ie-hwhhc transfer: 4 Walk 150 feet: 4 PT Sales Exhibitor Goals Sales Exhibitor Goals PT Sales Exhibitor Goals Time Frame: Sep 28, 2020 Roll Left & Right (QC): 6 Sit to Lying (QC): 6 Lying-Sitting on Side/Bed(QC): 6 Sit to Stand (QC): 6 Chair/Pys-qk-Slsju Xfer(QC): 6 Toilet Transfer (QC): 6 Car Transfer (QC): 6 Does the Patient Walk: No and Walking Goal IS indicated Walk 10 feet (QC): 6 Walk 50ft with 2 Turns (QC): 6 Walk 150 ft (QC): 6 Walking 10ft on Uneven Surface: 6 1 Step (curb) (QC): 6 4 Steps (QC): 6 12 Steps (QC): 4 Picking up an Object (QC): 4 Does the Pt use WC or Scooter?: Yes Wheel 50 feet with 2 turns (QC: 6 Type: Manual Wheel 150 feet: 6 PT Plan Problem List Problem List: Activity Tolerance, Functional Strength, Safety, Balance, Gait, Transfer, Bed Mobility, ROM Treatment/Plan Treatment Plan: Continue Plan of Care Treatment Plan: Bed Mobility, Education, Functional Activity [place], Functional Strength, Group Therapy, Gait, Safety, Therapeutic Exercise, Transfers Treatment Duration: Sep 28, 2020 Frequency: At least 5 of 7 days/Wk (IRF) Estimated Hrs Per Day: 1.5 hours per day Patient and/or Family Agrees t: Yes Safety Risks/Education Patient Education: Transfer Techniques, Correct Positioning, Safety Issues Teaching Recipient: Patient Teaching Methods: Demonstration, Discussion Response to Teaching: Reinforcement Needed Time/GCodes Time In: 1300 Time Out: 1330 Total Billed Treatment Time: 30 Total Billed Treatment 1 visit EX 30' ARIEL CHU PT Sep 21, 2020 13:46
[2020-09-21] MEDS: ACETAMINOPHEN 325 MG TABLET PO PRN (14:21)
--- NOTE | 2020-09-21 14:32 | Occupational Ther Daily Note ---
OT Current Status-Daily Note Subjective No pain reported. Mental Status/Objective Patient Orientation: Person, Place, Time, Situation ADL-Treatment Therapy Code Descriptions/Definitions Functional [place] Measure: 0=Not Assessed/NA 4=Minimal Assistance 1=Total Assistance 5=Supervision or Setup 2=Maximal Assistance 6=Modified [place] 3=Moderate Assistance 7=Complete IndependenceSCALE: Activities may be completed with or without assistive devices. 6-Qtdnnojncu-dbsrzqd completes the activity by him/herself with no assistance from a helper. 5-Set-up or Clean-up Assistance-helper sets up or cleans up; patient completes activity. [place] assists only prior to or following the activity. 4-Supervision or Touching Assistance-helper provides verbal cues and/or touching/steadying and/or contact guard assistance as patient completes activity. Assistance may be provided throughout the activity or intermittently. 3-Partial/Moderate Assistance-helper does LESS THAN HALF the effort. [place] lifts, holds or supports trunk or limbs, but provides less than half the effort. 2-Substantial/Maximal Assistance-helper does MORE THAN HALF the effort. [place] lifts or holds trunk or limbs and provides more than half the effort. 8-Bjwtefimx-xmvmfs does ALL the effort. Patient does none of the effort to complete the activity. Or, the assistance of 2 or more helpers is required for the patient to complete the activity. If activity was not attempted, code reason: 7-Patient Refused. 9-Not Applicable-not attempted and the patient did not perform the activity before the current illness, exacerbation or injury. 10-Not Attempted due to Environmental Limitations-(lack of equipment, weather restraints, etc.). 88-Not Attempted due to Medical Conditions or Safety Concerns. Other Treatment Pt. is able to stand from one surface and transfer to wheelchair with independence. He requests to work on continued activity to engage quadricep muscles that will strengthen LE for ambulation and ADL transfers. OT dons 5 lb. weights on bilateral LE, and pt. completes alternating pattern with leg kicks. Talks with OT regarding home set up and possible needed equipment. At this time, pt. will need a heavy duty walker, and possibly a heavy duty shower chair. Unsure of the exact discharge location. Pt. able to self propel wheelchair independently throughout rehab floor and back to room. All needs met. Education OT Patient Education: Correct positioning, Exercise program, Progress toward Goal/Update tx plan, Purpose of tx/functional activities, Reviewed precautions, Rehab process, Transfer techniques Teaching Recipient: Patient Teaching Methods: Demonstration, Discussion Response to Teaching: Verbalize Understanding, Return Demonstration OT Short Term Goals Short Term Goals Time Frame: Sep 21, 2020 Eatin Oral hygiene: 5 Toileting hygiene: 4 Shower/bathe self: 4 Upper body dressin Lower body dressin Putting on/taking off footwear: 4 OT Alf Goals Mold Puller Goals Time Frame: Sep 28, 2020 Eating (QC): 6 Oral Hygiene (QC): 6 Toileting Hygiene (QC): 6 Shower/Bathe Self (QC): 4 Upper Body Dressing (QC): 6 Lower Body Dressing (QC): 6 On/Off Footwear (QC): 6 Additional Goals: 1-Demonstrate ADL Tasks, 2-Verbalize Understanding, 3- ImproveStrength/[place] 1=Demonstrate adherence to instructed precautions during ADL tasks. 2=Patient will verbalize/demonstrate understanding of assistive devices/modifications for ADL. 3=Patient will improve strength/tolerance for activity to enable patient to perform ADL's. OT Education/Plan Discharge Recommendations Plan/Recommendations: Continue POC Therapy Discharge Recommendati: Home & Family Treatment Plan/Plan of Care Treatment,Training & Education: Yes Patient would benefit from OT for education, treatment and training to promote independence in ADL's, mobility, safety and/or upper extremity function for ADL's. Plan of Care: ADL Retraining, Functional Mobility, UE Funct Exercise/Act Treatment Duration: Sep 28, 2020 Frequency: At least 5 of 7 days/Wk (IRF) Estimated Hrs Per Day: 1.5 hours per day Agreement: Yes Rehab Potential: Good Time/GCodes Start Time: 13:30 Stop Time: 14:00 Total Time Billed (hr/min): 30 Billed Treatment Time 1, Ex x 2 BRENDAN BARBOZA OT Sep 21, 2020 14:32
[2020-09-21 16:00] VITALS: BP 113/62
[2020-09-21] MEDS: NITROFURANTOIN 100 MG (MACROBID) CAPSULE PO SCH (22:01)
[2020-09-21] MEDS: traZODone 100 MG (DESYREL) TAB PO SCH (22:03)
[2020-09-22 05:45] VITALS: BP 111/53
[2020-09-22] MEDS: MULTIVIT W/MINERALS TAB (THERAGRAN M) PO SCH (06:40)
[2020-09-22] MEDS: ZINC SULFATE 220 MG CAPSULE PO SCH (07:51)
[2020-09-22] MEDS: ASCORBIC ACID (VIT C) 500 MG TABLET PO SCH ×2 (07:51→17:59)
[2020-09-22] MEDS: metFORMIN 500 MG (GLUCOPHAGE) TAB PO SCH ×2 (07:51→17:59)
[2020-09-22 08:00] VITALS: BP 121/66
[2020-09-22] MEDS: meTOprolol SUCCINATE 100 MG (TOPROL XL) TAB PO SCH (08:08)
[2020-09-22] MEDS: LACTOBACILLUS ACIDOPHILUS (PROBIOTIC) CAPSULE PO SCH ×2 (08:08→20:52)
[2020-09-22] MEDS: LINAGLIPTIN (TRADJENTA) 5 MG TABLET PO SCH (08:08)
[2020-09-22] MEDS: NAPROXEN 250 MG (NAPROSYN) TABLET PO SCH ×2 (08:08→20:52)
[2020-09-22] MEDS: toPIRamate 25 MG (TOPAMAX) TAB PO SCH ×2 (08:08→20:51)
[2020-09-22] MEDS: NITROFURANTOIN 100 MG (MACROBID) CAPSULE PO SCH ×2 (08:08→20:52)
[2020-09-22] MEDS: ENOXAPARIN 60 MG/0.6 ML (LOVENOX) SYR SC SCH ×2 (08:10→20:51)
[2020-09-22] MEDS: SENNA W/DOCUSATE (SENOKOT S) TABLET PO SCH ×2 (08:11→20:57)
[2020-09-22] MEDS: polyethylene glycoL POWDER 17 GM (MIRALAX) PACK PO SCH ×2 (08:11→20:56)
[2020-09-22] MEDS: MICONAZOLE 2% POWDER (DESENEX AF) 90 GM TOP SCH ×2 (08:11→20:53)
[2020-09-22] MEDS: DOCUSATE SODIUM 100 MG (COLACE) CAP PO SCH ×2 (08:11→20:56)
--- NOTE | 2020-09-22 08:56 | Occupational Ther Daily Note ---
OT Current Status-Daily Note Subjective Pt expresses minimal pain in L knee, seen in gym upon entry. Pt states completed dressing tasks with IND, denies completing socks though states can complete with IND. OT individual tx: [id number] OT/ PT co-treat: [id number] to address higher fx activity tolerance/ balance/ ambulation safely with OT addressing UE strength/ positioning and PT addressing ambulation/ balance. OT/ PT co-treat from [id number] to address higher fx activity and coordinating LE/ UE during fx tasks and w/c management. OT individual tx: [id number] Mental Status/Objective Patient Orientation: Normal For Age ADL-Treatment Therapy Code Descriptions/Definitions Functional [place] Measure: 0=Not Assessed/NA 4=Minimal Assistance 1=Total Assistance 5=Supervision or Setup 2=Maximal Assistance 6=Modified [place] 3=Moderate Assistance 7=Complete IndependenceSCALE: Activities may be completed with or without assistive devices. 2-Xyhlkasqtt-wiqdkgw completes the activity by him/herself with no assistance from a helper. 5-Set-up or Clean-up Assistance-helper sets up or cleans up; patient completes activity. [place] assists only prior to or following the activity. 4-Supervision or Touching Assistance-helper provides verbal cues and/or touching/steadying and/or contact guard assistance as patient completes activity. Assistance may be provided throughout the activity or intermittently. 3-Partial/Moderate Assistance-helper does LESS THAN HALF the effort. [place] lifts, holds or supports trunk or limbs, but provides less than half the effort. 2-Substantial/Maximal Assistance-helper does MORE THAN HALF the effort. [place] lifts or holds trunk or limbs and provides more than half the effort. 1-Ivnnvwaal-vsqrte does ALL the effort. Patient does none of the effort to complete the activity. Or, the assistance of 2 or more helpers is required for the patient to complete the activity. If activity was not attempted, code reason: 7-Patient Refused. 9-Not Applicable-not attempted and the patient did not perform the activity before the current illness, exacerbation or injury. 10-Not Attempted due to Environmental Limitations-(lack of equipment, weather restraints, etc.). 88-Not Attempted due to Medical Conditions or Safety Concerns. Eating (QC): 6 Oral Hygiene (QC): 6 Upper Body Dressing (QC): 6 Lower Body Dressing (QC): 6 Other Treatment Pt sits at heightened tabletop to complete 25 minutes moderate resistance arm bike task to increase fx UB activity endurance. Pt and OT discuss kitchen/ cooking tasks- states cooks in all appliances, states utilizes rolling office chair for mobility and sitting while in kitchen. States unsure if going home with w/c. Pt completes ambulation in hallway with use of walker (SBA sit to stands and ambulation) with w/c to follow. See PT notes for distance. Pt completes UE/ LE strengthening tasks in w/c with 2# weights donned bilaterally during contractions of UE. Pt holds positions (shoulder flexion/ shoulder abduction) for 2-5 min at a time, diaphoretic and requires rest breaks/ wiping of brow. Pt left with PT end of session. OT/ PT co-treat from [id number] and OT individual tx: [id number]. Pt seen in gym and completes 10 min bike/ arm ex with 7/10 resistance. Work of OT/ PT to coordinate transfers and movement. Pt has good fx strength/ endurance in UE. Pt completes LE ex with 7# weights placed B ankles. Use of knee ext during w/c mobility to complete higher fx strengthening during fx task- pushes self through mo with one rest break. Returns to room with food to come, all needs met, call light in reach. Education OT Patient Education: Correct positioning, Exercise program, Home exercise program, Progress toward Goal/Update tx plan, Purpose of tx/functional activiti es, Safety issues, Transfer techniques Teaching Recipient: Patient Teaching Methods: Demonstration, Discussion Response to Teaching: Verbalize Understanding, Return Demonstration OT Short Term Goals Short Term Goals Time Frame: Sep 21, 2020 Eatin Oral hygiene: 5 Toileting hygiene: 4 Shower/bathe self: 4 Upper body dressin Lower body dressin Putting on/taking off footwear: 4 OT Bench Press Operator Goals Detention Goals Time Frame: Sep 28, 2020 Eating (QC): 6 Oral Hygiene (QC): 6 Toileting Hygiene (QC): 6 Shower/Bathe Self (QC): 4 Upper Body Dressing (QC): 6 Lower Body Dressing (QC): 6 On/Off Footwear (QC): 6 Additional Goals: 1-Demonstrate ADL Tasks, 2-Verbalize Understanding, 3- ImproveStrength/[place] 1=Demonstrate adherence to instructed precautions during ADL tasks. 2=Patient will verbalize/demonstrate understanding of assistive devices/modifications for ADL. 3=Patient will improve strength/tolerance for activity to enable patient to perform ADL's. OT Education/Plan Problem List/Assessment Assessment: Decreased Activ Tolerance, Decreased UE Strength, Dependent Transfers, Impaired Bed Mobility, Impaired Funct Balance, Impaired I ADL's, Impaired Self-Care Skills Discharge Recommendations Plan/Recommendations: Continue POC Therapy Discharge Recommendati: Home & Family Treatment Plan/Plan of Care Treatment,Training & Education: Yes Patient would benefit from OT for education, treatment and training to promote independence in ADL's, mobility, safety and/or upper extremity function for ADL's. Plan of Care: ADL Retraining, Functional Mobility, UE Funct Exercise/Act Treatment Duration: Sep 28, 2020 Frequency: At least 5 of 7 days/Wk (IRF) Estimated Hrs Per Day: 1.5 hours per day Agreement: Yes Rehab Potential: Good Time/GCodes Start Time: 08:30 (1130) Stop Time: 09:30 (1200) Total Time Billed (hr/min): 90 Billed Treatment Time OT individual tx: [id number] OT/ PT co-treat: [id number] to address higher fx activity tolerance/ balance/ ambulation safely with OT addressing UE strength/ positioning and PT addressing ambulation/ balance. 1, EX 4 (60) OT/ PT co-treat from [id number] to address higher fx activity and coordinating LE/ UE during fx tasks and w/c management. OT individual tx: [id number] 1, EX 2 (30) ROXY CALLAWAY OTR Sep 22, 2020 08:56
--- NOTE | 2020-09-22 09:42 | Physical Therapy Daily Note ---
PT Daily Note-Current Subjective Patient in pre tx, agrees to PT, already working with OT, will be co-treating with OT due to severe knee pain with activity, poor endurance, coordinate UE and LE during activity, safety and reduce risk of falls. Appearance Patient in in room post tx, will nurse call, phone, tray, all needs met. Mental Status Patient Orientation: Normal For Age Transfers SCALE: Activities may be completed with or without assistive devices. 3-Jzhjmctyrg-ffotafw completes the activity by him/herself with no assistance from a helper. 5-Set-up or Clean-up Assistance-helper sets up or cleans up; patient completes activity. [place] assists only prior to or following the activity. 4-Supervision or Touching Assistance-helper provides verbal cues and/or touching/steadying and/or contact guard assistance as patient completes activity. Assistance may be provided throughout the activity or intermittently. 3-Partial/Moderate Assistance-helper does LESS THAN HALF the effort. [place] lifts, holds or supports trunk or limbs, but provides less than half the effort. 2-Substantial/Maximal Assistance-helper does MORE THAN HALF the effort. [place] lifts or holds trunk or limbs and provides more than half the effort. 9-Oygjllrww-etqnrt does ALL the effort. Patient does none of the effort to complete the activity. Or, the assistance of 2 or more helpers is required for the patient to complete the activity. If activity was not attempted, code reason: 7-Patient Refused. 9-Not Applicable-not attempted and the patient did not perform the activity before the current illness, exacerbation or injury. 10-Not Attempted due to Environmental Limitations-(lack of equipment, weather restraints, etc.). 88-Not Attempted due to Medical Conditions or Safety Concerns. Sit to Stand (QC): 4 Chair/Dah-de-Rtkxc Xfer(QC): 4 Weight Bearing Right Lower Extremity: Right Full Weight Bearing Left Lower Extremity: Left Full Weight Bearing Gait Training Distance: 150'x2 Walk 10 feet (QC): 4 Walk 50 ft with 2 Turns(QC): 4 Walk 150 ft (QC): 4 Gait Assistive Device: FWW follow, CGA, increased knee pain Exercises LAQ alternating with 5# ankle weights for 5 min x2 NuStep Minutes: 10 NuStep Workload: 4 Treatments PT worked on transfers, ambulation, functional strengthening, OT worked on UE strengthening, UE positioning and safety during activity. Assessment Current Status: Fair Progress Overall good progress but knee pain is an issue PT Short Term Goals Short Term Goals Time Frame: Sep 21, 2020 Sit to stand: 4 Chair/ayu-ge-btfia transfer: 4 Walk 150 feet: 4 PT Long-Term Goals Long-Term Goals PT Brand Activation Manager Goals Time Frame: Sep 28, 2020 Roll Left & Right (QC): 6 Sit to Lying (QC): 6 Lying-Sitting on Side/Bed(QC): 6 Sit to Stand (QC): 6 Chair/Olr-dt-Vfiic Xfer(QC): 6 Toilet Transfer (QC): 6 Car Transfer (QC): 6 Does the Patient Walk: No and Walking Goal IS indicated Walk 10 feet (QC): 6 Walk 50ft with 2 Turns (QC): 6 Walk 150 ft (QC): 6 Walking 10ft on Uneven Surface: 6 1 Step (curb) (QC): 6 4 Steps (QC): 6 12 Steps (QC): 4 Picking up an Object (QC): 4 Does the Pt use WC or Scooter?: Yes Wheel 50 feet with 2 turns (QC: 6 Type: Manual Wheel 150 feet: 6 PT Plan Problem List Problem List: Activity Tolerance, Functional Strength, Safety, Balance, Gait, Transfer, Bed Mobility, ROM Treatment/Plan Treatment Plan: Continue Plan of Care Treatment Plan: Bed Mobility, Education, Functional Activity [place], Functional Strength, Group Therapy, Gait, Safety, Therapeutic Exercise, Transfers Treatment Duration: Sep 28, 2020 Frequency: At least 5 of 7 days/Wk (IRF) Estimated Hrs Per Day: 1.5 hours per day Patient and/or Family Agrees t: Yes Safety Risks/Education Patient Education: Gait Training, Transfer Techniques, Correct Positioning, Safety Issues Teaching Recipient: Patient Teaching Methods: Demonstration, Discussion Response to Teaching: Reinforcement Needed Time/GCodes Time In: 0900 Time Out: 944 Total Billed Treatment Time: 45 Total Billed Treatment 1 visit EX 20' FA 25' ARIEL CHU PT Sep 22, 2020 09:42
--- NOTE | 2020-09-22 11:33 | PM&R Progress Note ---
Subjective HPI/CC On Admission Date Seen by Provider: Sep 22, 2020 Time Seen by Provider: 11:45 Subjective/Events-last exam 09/22/20: Patient doing well Urinary incontinence reported at night and he was embarrassed to mention it Dr Muñoz was notified and if the issue continues after UTI treatment completed will initiate meds. PVR evaluation in meantime Limits his Oxycodone 09/21/20: Pt had a really good night of sleep last night Doing very well Naproxen 500mg twice daily will be started Overall feels very good Wound is healing well Pansensitive UCx so will start o Macrobid and DC Katelin 09/20/20: Pt doing very well Wants to know when he can get his knee replaced Dr. Bynum will see him as an outpatient Dr. Hooper will update him about his wound management Meropenem maintained for UTI since I suspect ESBL Improved dysuria Bowels are moving well Pain is controlled 09/19/20: Pt doing a lot better Shower was uneventful Dressing change, it looks good. Bowels moved yesterday Voiding well since removed catheter Transferring a lot better Dysuria reported and he thinks he has a UTI so will check UA 09/18/20: Pt doing very well Catheter has been discontinued and if he cant void and has retention, we will consult urology Labs stable Will use commode instead of using bedpan from here on out Overall motivated to improve 09/17/20: Full code now since he was DNR when they contemplated removing his penis and testicles so changed to full code in EMR Dr Hooper saw the patient DC catheter tomorrow and if retention occurs will consult Urology BM treatment 09/16/20: Patient denies pain. Daughter at bedside Appreciate Dr Hooper guidance on wound Changed dressing today Knee injections went well yesterday 4600 output in lama 09/15/20: Patient doing well Knee injections will be performed this afternoon Dr Hooper consulted for wound care Wound vac contemplated Yeast infection noted so will initiate Diflucan and wound care will initiate topicals per protocol No issues otherwise Review of Systems General: Fatigue, Malaise Neurological: Weakness Objective Exam Vital Signs Vital Signs Date Time Temp Pulse Resp B/P (MAP) Pulse Ox O2 Delivery O2 Flow Rate FiO2 09/22/20 20:00 Room Air 09/22/20 16:04 36.4 93 16 121/57 (78) 98 Capillary Refill : General Appearance: No Apparent Distress, WD/WN, Chronically ill, Obese (super morbidly) HEENT: PERRL/EOMI, Normal ENT Inspection, Pharynx Normal Neck: Full Range of Motion, Normal Inspection, Non Tender, Supple Respiratory: Lungs Clear, No Accessory Muscle Use, No Respiratory Distress Cardiovascular: Regular Rate, Rhythm, No Gallop, No JVD, No Murmur Gastrointestinal: Normal Bowel Sounds, No Organomegaly, No Pulsatile Mass, Non Tender, Soft Back: Normal Inspection, No CVA Tenderness, No Vertebral Tenderness Extremity: Normal Capillary Refill, Normal Inspection, Normal Range of Motion, Non Tender, No Calf Tenderness Neurologic/Psychiatric: Alert, Oriented x3, No Motor/Sensory Deficits, Normal Mood/Affect, senior cost analyst II-XII Norm as Tested, Motor Weakness (generalized ) Skin: Other (dressing to scrotum c/d/i, lama in place. almost no erythema in inguinal creases) Results/Procedures Lab Patient resulted labs reviewed. FIM Transfers Therapy Code Descriptions/Definitions Functional [place] Measure: 0=Not Assessed/NA 4=Minimal Assistance 1=Total Assistance 5=Supervision or Setup 2=Maximal Assistance 6=Modified [place] 3=Moderate Assistance 7=Complete IndependenceSCALE: Activities may be completed with or without assistive devices. 4-Glosqzjotk-ydjdieu completes the activity by him/herself with no assistance from a helper. 5-Set-up or Clean-up Assistance-helper sets up or cleans up; patient completes activity. [place] assists only prior to or following the activity. 4-Supervision or Touching Assistance-helper provides verbal cues and/or touching/steadying and/or contact guard assistance as patient completes activity. Assistance may be provided throughout the activity or intermittently. 3-Partial/Moderate Assistance-helper does LESS THAN HALF the effort. [place] lifts, holds or supports trunk or limbs, but provides less than half the effort. 2-Substantial/Maximal Assistance-helper does MORE THAN HALF the effort. [place] lifts or holds trunk or limbs and provides more than half the effort. 2-Quqobtuco-nwcrsi does ALL the effort. Patient does none of the effort to complete the activity. Or, the assistance of 2 or more helpers is required for the patient to complete the activity. If activity was not attempted, code reason: 7-Patient Refused. 9-Not Applicable-not attempted and the patient did not perform the activity before the current illness, exacerbation or injury. 10-Not Attempted due to Environmental Limitations-(lack of equipment, weather restraints, etc.). 88-Not Attempted due to Medical Conditions or Safety Concerns. Roll Left to Right (QC): 6 Sit to Lying (QC): 4 Sit to Stand (QC): 4 Chair/Mix-tl-Dwhid Xfer(QC): 4 Car Transfer (QC): 7 (Declined due to painful WB activity for transfer. ) Gait Training Does the Patient Walk?: No and Walking Goal IS indicated Distance: 150'x2 Walk 10 feet (QC): 4 Walk 50 ft with 2 Turns(QC): 4 Walk 150 ft (QC): 4 Walking 10ft/uneven surface-QC: 7 Gait Persons Needed: 1 Gait Assistive Device: FWW Wheelchair Training Does the Pt Use a Wheelchair?: Yes Wheel 50 ft with 2 turns (QC): 4 Wheel 150 ft (QC): 4 Type of Wheelchair: Manual Stair Training 1 Step (curb) (QC): 7 4 Steps (QC): 7 12 Steps (QC): 7 Balance Picking up an Object (QC): 88 ADL-Treatment Eating (QC): 6 Oral Hygiene (QC): 6 Shower/Bathe Self (QC): 7 Upper Body Dressing (QC): 6 Lower Body Dressing (QC): 6 On/Off Footwear (QC): 6 Toileting Hygiene (QC): 6 Toilet Transfer (QC): 6 Assessment/Plan Assessment and Plan Assess & Plan/Chief Complaint 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 DM HTN Obesity Knee pain requiring steroid injections every 3 months by PCP Dysuria 08/22/20 checking UA dx with UTI suspected ESBL placed on Katelin but UCx pansensitive so placed on Macrobid 09/21/20 Urinary incontinence 09/22/20 Plan: IRF protocol Knee xrays Home meds Pain control 09/15/20: Knee injections Appreciate Dr Bynum and Blas Buchanan Knee xrays discussed IRF protocol Dr Hooper appreciated 09/16/20: Dr Hooper consult Monitor UOP Pain control Knee injections appreciated 09/17/20: Monitor closely DC catheter tomorrow BM regimen 09/18/20: DC catheter Monitor for retention Wound care appreciated 09/19/20: Check UA Monitor closely 09/20/20: Monitor UCx Meropenem due to high risk for resistant organism 09/21/20: De-escalate abx and change to Macrobid Naproxen 09/22/20: UTI treatment Monitor closely Incontinence (1) Jose gangrene GISELLE CARBONE DO Sep 22, 2020 11:33
--- NOTE | 2020-09-22 11:58 | Physical Therapy Daily Note ---
PT Daily Note-Current Subjective Agrees. Reports his knees are sore, but he is able to participate. Transfers SCALE: Activities may be completed with or without assistive devices. 2-Iocnzksnnm-fnnkbmr completes the activity by him/herself with no assistance from a helper. 5-Set-up or Clean-up Assistance-helper sets up or cleans up; patient completes activity. [place] assists only prior to or following the activity. 4-Supervision or Touching Assistance-helper provides verbal cues and/or touching/steadying and/or contact guard assistance as patient completes acti vity. Assistance may be provided throughout the activity or intermittently. 3-Partial/Moderate Assistance-helper does LESS THAN HALF the effort. [place] lifts, holds or supports trunk or limbs, but provides less than half the effort. 2-Substantial/Maximal Assistance-helper does MORE THAN HALF the effort. [place] lifts or holds trunk or limbs and provides more than half the effort. 8-Xuytarufp-fazidm does ALL the effort. Patient does none of the effort to complete the activity. Or, the assistance of 2 or more helpers is required for the patient to complete the activity. If activity was not attempted, code reason: 7-Patient Refused. 9-Not Applicable-not attempted and the patient did not perform the activity before the current illness, exacerbation or injury. 10-Not Attempted due to Environmental Limitations-(lack of equipment, weather restraints, etc.). 88-Not Attempted due to Medical Conditions or Safety Concerns. Weight Bearing Right Lower Extremity: Right Full Weight Bearing Left Lower Extremity: Left Full Weight Bearing Exercises NuStep Minutes: 10 NuStep Workload: 7 Treatments Prolonged leg lift weighted as pt propelled wc for funcitonal strength and activity tolerance training. Co treat with OT as skill of 2 clinicians indicated to coordinate UE use paired with LE coordination activities to further progress functional balance, strength and functional mobility. Assessment Current Status: Good Progress Progressing well. PT Short Term Goals Short Term Goals Time Frame: Sep 21, 2020 Sit to stand: 4 Chair/zzk-vt-hyoab transfer: 4 Walk 150 feet: 4 PT Retirement Goals Retirement Goals PT Retirement Goals Time Frame: Sep 28, 2020 Roll Left & Right (QC): 6 Sit to Lying (QC): 6 Lying-Sitting on Side/Bed(QC): 6 Sit to Stand (QC): 6 Chair/Tsw-ce-Arxvx Xfer(QC): 6 Toilet Transfer (QC): 6 Car Transfer (QC): 6 Does the Patient Walk: No and Walking Goal IS indicated Walk 10 feet (QC): 6 Walk 50ft with 2 Turns (QC): 6 Walk 150 ft (QC): 6 Walking 10ft on Uneven Surface: 6 1 Step (curb) (QC): 6 4 Steps (QC): 6 12 Steps (QC): 4 Picking up an Object (QC): 4 Does the Pt use WC or Scooter?: Yes Wheel 50 feet with 2 turns (QC: 6 Type: Manual Wheel 150 feet: 6 PT Plan Problem List Problem List: Activity Tolerance, Functional Strength, Safety Treatment/Plan Treatment Plan: Continue Plan of Care Treatment Plan: Bed Mobility, Education, Functional Activity [place], Functional Strength, Group Therapy, Gait, Safety, Therapeutic Exercise, Transfers Treatment Duration: Sep 28, 2020 Frequency: At least 5 of 7 days/Wk (IRF) Estimated Hrs Per Day: 1.5 hours per day Patient and/or Family Agrees t: Yes Time/GCodes Time In: 1130 Time Out: 1145 Total Billed Treatment Time: 15 Total Billed Treatment visit EX 15 (co treat with OT) SRINIVASA HERRON PT Sep 22, 2020 11:58
--- NOTE | 2020-09-22 13:20 | Physical Therapy Daily Note ---
PT Daily Note-Current Subjective Patient in WC pre tx, agrees to PT, when asked about pain in his knees he states "about the usual". Appearance Patient in in room post tx with nurse call, phone, tray, all needs met. Mental Status Patient Orientation: Normal For Age Transfers SCALE: Activities may be completed with or without assistive devices. 4-Crofvoxyyi-vuppqmj completes the activity by him/herself with no assistance from a helper. 5-Set-up or Clean-up Assistance-helper sets up or cleans up; patient completes activity. [place] assists only prior to or following the activity. 4-Supervision or Touching Assistance-helper provides verbal cues and/or touching/steadying and/or contact guard assistance as patient completes activity. Assistance may be provided throughout the activity or intermittently. 3-Partial/Moderate Assistance-helper does LESS THAN HALF the effort. [place] l ifts, holds or supports trunk or limbs, but provides less than half the effort. 2-Substantial/Maximal Assistance-helper does MORE THAN HALF the effort. [place] lifts or holds trunk or limbs and provides more than half the effort. 8-Yeiyanwfe-eueaty does ALL the effort. Patient does none of the effort to complete the activity. Or, the assistance of 2 or more helpers is required for t he patient to complete the activity. If activity was not attempted, code reason: 7-Patient Refused. 9-Not Applicable-not attempted and the patient did not perform the activity before the current illness, exacerbation or injury. 10-Not Attempted due to Environmental Limitations-(lack of equipment, weather restraints, etc.). 88-Not Attempted due to Medical Conditions or Safety Concerns. Sit to Stand (QC): 5 Chair/Tga-pg-Tnhkk Xfer(QC): 5 Weight Bearing Right Lower Extremity: Right Full Weight Bearing Left Lower Extremity: Left Full Weight Bearing Gait Training Distance: 150'x3 Walk 10 feet (QC): 4 Walk 50 ft with 2 Turns(QC): 4 Walk 150 ft (QC): 4 Gait Persons Needed: 1 Gait Assistive Device: FWW SBA, WC follow, antalgic, wide SAMMY, needs significant rest breaks between due to pain and fatigue Treatments gait training Assessment Current Status: Fair Progress improving endurance and ambulation PT Short Term Goals Short Term Goals Time Frame: Sep 21, 2020 Sit to stand: 4 Chair/tpz-cc-kkkva transfer: 4 Walk 150 feet: 4 PT Fdc Goals Receiving Teller Goals PT Receiving Teller Goals Time Frame: Sep 28, 2020 Roll Left & Right (QC): 6 Sit to Lying (QC): 6 Lying-Sitting on Side/Bed(QC): 6 Sit to Stand (QC): 6 Chair/Zsu-aj-Woaiu Xfer(QC): 6 Toilet Transfer (QC): 6 Car Transfer (QC): 6 Does the Patient Walk: No and Walking Goal IS indicated Walk 10 feet (QC): 6 Walk 50ft with 2 Turns (QC): 6 Walk 150 ft (QC): 6 Walking 10ft on Uneven Surface: 6 1 Step (curb) (QC): 6 4 Steps (QC): 6 12 Steps (QC): 4 Picking up an Object (QC): 4 Does the Pt use WC or Scooter?: Yes Wheel 50 feet with 2 turns (QC: 6 Type: Manual Wheel 150 feet: 6 PT Plan Problem List Problem List: Activity Tolerance, Functional Strength, Safety, Balance, Gait, Transfer, Bed Mobility, ROM Treatment/Plan Treatment Plan: Continue Plan of Care Treatment Plan: Bed Mobility, Education, Functional Activity [place], Functional Strength, Group Therapy, Gait, Safety, Therapeutic Exercise, Transfers Treatment Duration: Sep 28, 2020 Frequency: At least 5 of 7 days/Wk (IRF) Estimated Hrs Per Day: 1.5 hours per day Patient and/or Family Agrees t: Yes Safety Risks/Education Patient Education: Gait Training, Transfer Techniques, Correct Positioning, Safety Issues Teaching Recipient: Patient Teaching Methods: Demonstration, Discussion Response to Teaching: Reinforcement Needed Time/GCodes Time In: 1255 Time Out: 1325 Total Billed Treatment Time: 30 Total Billed Treatment 1 visit GT 30' ARIEL CHU PT Sep 22, 2020 13:20
[2020-09-22] MEDS: ACETAMINOPHEN 325 MG TABLET PO PRN (14:14)
[2020-09-22 16:04] VITALS: BP 121/57
[2020-09-22] MEDS ORDERED: CATHETER FLUSH 10 ML SYR IV PRN (19:30)
[2020-09-22] MEDS: traZODone 100 MG (DESYREL) TAB PO SCH (20:52)
[2020-09-22] MEDS: CATHETER FLUSH 10 ML SYR IV SCH (20:52)
[2020-09-23 05:47] VITALS: BP 139/83
[2020-09-23] MEDS: MULTIVIT W/MINERALS TAB (THERAGRAN M) PO SCH (06:39)
[2020-09-23] MEDS: CATHETER FLUSH 10 ML SYR IV SCH ×3 (06:39→22:39)
--- NOTE | 2020-09-23 07:32 | PM&R Progress Note ---
Subjective HPI/CC On Admission Date Seen by Provider: Sep 23, 2020 Time Seen by Provider: 09:40 Subjective/Events-last exam 09/23/20: Doing well BM++ Aleve is helping him since he takes that at home Walking very well Incontinence is improved Macrobid is treating UTI 09/22/20: Patient doing well Urinary incontinence reported at night and he was embarrassed to mention it Dr Muñoz was notified and if the issue continues after UTI treatment completed will initiate meds. PVR evaluation in meantime Limits his Oxycodone 09/21/20: Pt had a really good night of sleep last night Doing very well Naproxen 500mg twice daily will be started Overall feels very good Wound is healing well Pansensitive UCx so will start o Macrobid and DC Katelin 09/20/20: Pt doing very well Wants to know when he can get his knee replaced Dr. Bynum will see him as an outpatient Dr. Hooper will update him about his wound management Meropenem maintained for UTI since I suspect ESBL Improved dysuria Bowels are moving well Pain is controlled 09/19/20: Pt doing a lot better Shower was uneventful Dressing change, it looks good. Bowels moved yesterday Voiding well since removed catheter Transferring a lot better Dysuria reported and he thinks he has a UTI so will check UA 09/18/20: Pt doing very well Catheter has been discontinued and if he cant void and has retention, we will consult urology Labs stable Will use commode instead of using bedpan from here on out Overall motivated to improve 09/17/20: Full code now since he was DNR when they contemplated removing his penis and testicles so changed to full code in EMR Dr Hooper saw the patient DC catheter tomorrow and if retention occurs will consult Urology BM treatment 09/16/20: Patient denies pain. Daughter at bedside Appreciate Dr Hooper guidance on wound Changed dressing today Knee injections went well yesterday 4600 output in lama 09/15/20: Patient doing well Knee injections will be performed this afternoon Dr Hooper consulted for wound care Wound vac contemplated Yeast infection noted so will initiate Diflucan and wound care will initiate topicals per protocol No issues otherwise Review of Systems General: Fatigue Neurological: Weakness Objective Exam Vital Signs Vital Signs Date Time Temp Pulse Resp B/P (MAP) Pulse Ox O2 Delivery O2 Flow Rate FiO2 09/23/20 17:02 36.4 89 18 129/76 (93) 96 Room Air Capillary Refill : General Appearance: No Apparent Distress, WD/WN, Chronically ill, Obese (super morbidly) HEENT: PERRL/EOMI, Normal ENT Inspection, Pharynx Normal Neck: Full Range of Motion, Normal Inspection, Non Tender, Supple Respiratory: Lungs Clear, No Accessory Muscle Use, No Respiratory Distress Cardiovascular: Regular Rate, Rhythm, No Gallop, No JVD, No Murmur Gastrointestinal: Normal Bowel Sounds, No Organomegaly, No Pulsatile Mass, Non Tender, Soft Back: Normal Inspection, No CVA Tenderness, No Vertebral Tenderness Extremity: Normal Capillary Refill, Normal Inspection, Normal Range of Motion, Non Tender, No Calf Tenderness Neurologic/Psychiatric: Alert, Oriented x3, No Motor/Sensory Deficits, Normal Mood/Affect, 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 almost no erythema in inguinal creases) Results/Procedures Lab Patient resulted labs reviewed. FIM Transfers Therapy Code Descriptions/Definitions Functional [place] Measure: 0=Not Assessed/NA 4=Minimal Assistance 1=Total Assistance 5=Supervision or Setup 2=Maximal Assistance 6=Modified [place] 3=Moderate Assistance 7=Complete IndependenceSCALE: Activities may be completed with or without assistive devices. 7-Jgntnebrqe-ikujypn completes the activity by him/herself with no assistance from a helper. 5-Set-up or Clean-up Assistance-helper sets up or cleans up; patient completes activity. [place] assists only prior to or following the activity. 4-Supervision or Touching Assistance-helper provides verbal cues and/or touching/steadying and/or contact guard assistance as patient completes activity. Assistance may be provided throughout the activity or intermittently. 3-Partial/Moderate Assistance-helper does LESS THAN HALF the effort. [place] lifts, holds or supports trunk or limbs, but provides less than half the effort. 2-Substantial/Maximal Assistance-helper does MORE THAN HALF the effort. [place] lifts or holds trunk or limbs and provides more than half the effort. 9-Ijnmalrmk-zxgoew does ALL the effort. Patient does none of the effort to complete the activity. Or, the assistance of 2 or more helpers is required for the patient to complete the activity. If activity was not attempted, code reason: 7-Patient Refused. 9-Not Applicable-not attempted and the patient did not perform the activity before the current illness, exacerbation or injury. 10-Not Attempted due to Environmental Limitations-(lack of equipment, weather restraints, etc.). 88-Not Attempted due to Medical Conditions or Safety Concerns. Roll Left to Right (QC): 6 Sit to Lying (QC): 4 Sit to Stand (QC): 5 Chair/Zce-hd-Xvgai Xfer(QC): 5 Car Transfer (QC): 7 (Declined due to painful WB activity for transfer. ) Gait Training Does the Patient Walk?: No and Walking Goal IS indicated Distance: 150'x3 Walk 10 feet (QC): 4 Walk 50 ft with 2 Turns(QC): 4 Walk 150 ft (QC): 4 Walking 10ft/uneven surface-QC: 7 Gait Persons Needed: 1 Gait Assistive Device: FWW Wheelchair Training Does the Pt Use a Wheelchair?: Yes Wheel 50 ft with 2 turns (QC): 4 Wheel 150 ft (QC): 4 Type of Wheelchair: Manual Stair Training 1 Step (curb) (QC): 7 4 Steps (QC): 7 12 Steps (QC): 7 Balance Picking up an Object (QC): 88 ADL-Treatment Eating (QC): 6 Oral Hygiene (QC): 6 Shower/Bathe Self (QC): 7 Upper Body Dressing (QC): 6 Lower Body Dressing (QC): 6 On/Off Footwear (QC): 6 Toileting Hygiene (QC): 6 Toilet Transfer (QC): 6 Assessment/Plan Assessment and Plan Assess & Plan/Chief Complaint 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 DM HTN Obesity Knee pain requiring steroid injections every 3 months by PCP Dysuria 08/22/20 checking UA dx with UTI suspected ESBL placed on Katelin but UCx pansensitive so placed on Macrobid 09/21/20 Urinary incontinence 09/22/20 Plan: IRF protocol Knee xrays Home meds Pain control 09/15/20: Knee injections Appreciate Dr Bynum and Blas Buchanan Knee xrays discussed IRF protocol Dr Hooper appreciated 09/16/20: Dr Hooper consult Monitor UOP Pain control Knee injections appreciated 09/17/20: Monitor closely DC catheter tomorrow BM regimen 09/18/20: DC catheter Monitor for retention Wound care appreciated 09/19/20: Check UA Monitor closely 09/20/20: Monitor UCx Meropenem due to high risk for resistant organism 09/21/20: De-escalate abx and change to Macrobid Naproxen 09/22/20: UTI treatment Monitor closely Incontinence 09/23/20: Improved incontinence Wound care Improved status (1) Jose gangrene GISELLE CARBONE DO Sep 23, 2020 07:32
[2020-09-23] MEDS: meTOprolol SUCCINATE 100 MG (TOPROL XL) TAB PO SCH (08:06)
[2020-09-23] MEDS: metFORMIN 500 MG (GLUCOPHAGE) TAB PO SCH ×2 (08:06→17:46)
[2020-09-23] MEDS: ZINC SULFATE 220 MG CAPSULE PO SCH (08:06)
[2020-09-23] MEDS: ENOXAPARIN 60 MG/0.6 ML (LOVENOX) SYR SC SCH ×2 (08:06→21:30)
[2020-09-23] MEDS: toPIRamate 25 MG (TOPAMAX) TAB PO SCH ×2 (08:06→21:30)
[2020-09-23] MEDS: LINAGLIPTIN (TRADJENTA) 5 MG TABLET PO SCH (08:06)
[2020-09-23] MEDS: LACTOBACILLUS ACIDOPHILUS (PROBIOTIC) CAPSULE PO SCH ×2 (08:06→21:30)
[2020-09-23] MEDS: ASCORBIC ACID (VIT C) 500 MG TABLET PO SCH ×2 (08:07→17:46)
[2020-09-23] MEDS: NITROFURANTOIN 100 MG (MACROBID) CAPSULE PO SCH ×2 (08:09→21:30)
[2020-09-23] MEDS: NAPROXEN 250 MG (NAPROSYN) TABLET PO SCH ×2 (08:10→21:30)
--- NOTE | 2020-09-23 08:21 | Physical Therapy Daily Note ---
PT Daily Note-Current Subjective Agreeable. Wants to do leg exercises during the weekend to keep strengthening his legs. Transfers SCALE: Activities may be completed with or without assistive devices. 2-Tttgedltfl-krlikcv completes the activity by him/herself with no assistance from a helper. 5-Set-up or Clean-up Assistance-helper sets up or cleans up; patient completes activity. [place] assists only prior to or following the activity. 4-Supervision or Touching Assistance-helper provides verbal cues and/or touching/steadying and/or contact guard assistance as patient completes activity. Assistance may be provided throughout the activity or intermittently. 3-Partial/Moderate Assistance-helper does LESS THAN HALF the effort. [place] lifts, holds or supports trunk or limbs, but provides less than half the effort. 2-Substantial/Maximal Assistance-helper does MORE THAN HALF the effort. [place] lifts or holds trunk or limbs and provides more than half the effort. 1-Zibkxoejj-oepiqa does ALL the effort. Patient does none of the effort to complete the activity. Or, the assistance of 2 or more helpers is required for the patient to complete the activity. If activity was not attempted, code reason: 7-Patient Refused. 9-Not Applicable-not attempted and the patient did not perform the activity before the current illness, exacerbation or injury. 10-Not Attempted due to Environmental Limitations-(lack of equipment, weather restraints, etc.). 88-Not Attempted due to Medical Conditions or Safety Concerns. Sit to Stand (QC): 4 Chair/Vrd-ti-Mmohn Xfer(QC): 4 Weight Bearing Right Lower Extremity: Right Full Weight Bearing Left Lower Extremity: Left Full Weight Bearing Gait Training Walk 150 ft (QC): 4 (150 ft x 4 reps with FWW with SBA and followed by wc) Exercises NuStep Minutes: 20 NuStep Workload: 7 (LE strength and functional activity tolerance training. ) Treatments Gait and LE strength exercises. Assessment Current Status: Good Progress Pt standing and transferring better. Gait distance progressing. Increased functional standing balance. PT Short Term Goals Short Term Goals Time Frame: Sep 21, 2020 Sit to stand: 4 (met) Chair/ziw-cu-olidn transfer: 4 (met) Walk 150 feet: 4 (met) PT Retirement Goals [place] Cutter Goals PT Retirement Goals Time Frame: Sep 28, 2020 Roll Left & Right (QC): 6 Sit to Lying (QC): 6 Lying-Sitting on Side/Bed(QC): 6 Sit to Stand (QC): 6 Chair/Xes-mo-Kxlop Xfer(QC): 6 Toilet Transfer (QC): 6 Car Transfer (QC): 6 Does the Patient Walk: No and Walking Goal IS indicated Walk 10 feet (QC): 6 Walk 50ft with 2 Turns (QC): 6 Walk 150 ft (QC): 6 Walking 10ft on Uneven Surface: 6 1 Step (curb) (QC): 6 4 Steps (QC): 6 12 Steps (QC): 4 Picking up an Object (QC): 4 Does the Pt use WC or Scooter?: Yes Wheel 50 feet with 2 turns (QC: 6 Type: Manual Wheel 150 feet: 6 PT Plan Problem List Problem List: Activity Tolerance, Functional Strength, Safety, Balance, Gait, Transfer, Bed Mobility Treatment/Plan Treatment Plan: Continue Plan of Care Treatment Plan: Bed Mobility, Education, Functional Activity [place], Functional Strength, Group Therapy, Gait, Safety, Therapeutic Exercise, Transfers Treatment Duration: Sep 28, 2020 Frequency: At least 5 of 7 days/Wk (IRF) Estimated Hrs Per Day: 1.5 hours per day Patient and/or Family Agrees t: Yes Safety Risks/Education Patient Education: Transfer Techniques, Safety Issues Time/GCodes Time In: 707 Time Out: 750 Total Billed Treatment Time: 43 Total Billed Treatment visit EX 20 GT 23 SRINIVASA HERRON PT Sep 23, 2020 08:21
[2020-09-23] MEDS: SENNA W/DOCUSATE (SENOKOT S) TABLET PO SCH ×2 (08:51→22:19)
[2020-09-23] MEDS: DOCUSATE SODIUM 100 MG (COLACE) CAP PO SCH ×2 (08:51→22:18)
[2020-09-23] MEDS: polyethylene glycoL POWDER 17 GM (MIRALAX) PACK PO SCH ×2 (08:51→22:18)
[2020-09-23] MEDS: ACETAMINOPHEN 325 MG TABLET PO PRN (16:01)
[2020-09-23] MEDS: MICONAZOLE 2% POWDER (DESENEX AF) 90 GM TOP SCH ×2 (16:02→21:32)
[2020-09-23 17:02] VITALS: BP 129/76
[2020-09-23] MEDS: traZODone 100 MG (DESYREL) TAB PO SCH (21:30)
[2020-09-24 05:53] VITALS: BP 132/66
[2020-09-24] MEDS: CATHETER FLUSH 10 ML SYR IV SCH ×3 (06:48→22:13)
[2020-09-24] MEDS: MULTIVIT W/MINERALS TAB (THERAGRAN M) PO SCH (06:48)
[2020-09-24] MEDS: toPIRamate 25 MG (TOPAMAX) TAB PO SCH ×2 (08:21→22:06)
[2020-09-24] MEDS: ENOXAPARIN 60 MG/0.6 ML (LOVENOX) SYR SC SCH ×2 (08:21→22:06)
[2020-09-24] MEDS: NITROFURANTOIN 100 MG (MACROBID) CAPSULE PO SCH ×2 (08:21→22:07)
[2020-09-24] MEDS: ASCORBIC ACID (VIT C) 500 MG TABLET PO SCH ×2 (08:21→17:28)
[2020-09-24] MEDS: meTOprolol SUCCINATE 100 MG (TOPROL XL) TAB PO SCH (08:21)
[2020-09-24] MEDS: MICONAZOLE 2% POWDER (DESENEX AF) 90 GM TOP SCH ×2 (08:21→22:06)
[2020-09-24] MEDS: NAPROXEN 250 MG (NAPROSYN) TABLET PO SCH ×2 (08:21→22:07)
[2020-09-24] MEDS: LACTOBACILLUS ACIDOPHILUS (PROBIOTIC) CAPSULE PO SCH ×2 (08:22→22:06)
[2020-09-24] MEDS: ZINC SULFATE 220 MG CAPSULE PO SCH (08:22)
[2020-09-24] MEDS: metFORMIN 500 MG (GLUCOPHAGE) TAB PO SCH ×2 (08:22→17:28)
[2020-09-24] MEDS: LINAGLIPTIN (TRADJENTA) 5 MG TABLET PO SCH (08:22)
[2020-09-24] MEDS: ACETAMINOPHEN 325 MG TABLET PO PRN ×2 (08:24→22:10)
--- NOTE | 2020-09-24 09:32 | PM&R Progress Note ---
Subjective HPI/CC On Admission Date Seen by Provider: Sep 24, 2020 Time Seen by Provider: 11:00 Subjective/Events-last exam 09/24/20: Patient doing well No complaints BM+ No issues Labs due tomorrow 09/23/20: Doing well BM++ Aleve is helping him since he takes that at home Walking very well Incontinence is improved Macrobid is treating UTI 09/22/20: Patient doing well Urinary incontinence reported at night and he was embarrassed to mention it Dr Muñoz was notified and if the issue continues after UTI treatment completed will initiate meds. PVR evaluation in meantime Limits his Oxycodone 09/21/20: Pt had a really good night of sleep last night Doing very well Naproxen 500mg twice daily will be started Overall feels very good Wound is healing well Pansensitive UCx so will start o Macrobid and DC Katelin 09/20/20: Pt doing very well Wants to know when he can get his knee replaced Dr. Bynum will see him as an outpatient Dr. Hooper will update him about his wound management Meropenem maintained for UTI since I suspect ESBL Improved dysuria Bowels are moving well Pain is controlled 09/19/20: Pt doing a lot better Shower was uneventful Dressing change, it looks good. Bowels moved yesterday Voiding well since removed catheter Transferring a lot better Dysuria reported and he thinks he has a UTI so will check UA 09/18/20: Pt doing very well Catheter has been discontinued and if he cant void and has retention, we will consult urology Labs stable Will use commode instead of using bedpan from here on out Overall motivated to improve 09/17/20: Full code now since he was DNR when they contemplated removing his penis and testicles so changed to full code in EMR Dr Hooper saw the patient DC catheter tomorrow and if retention occurs will consult Urology BM treatment 09/16/20: Patient denies pain. Daughter at bedside Appreciate Dr Hooper guidance on wound Changed dressing today Knee injections went well yesterday 4600 output in lama 09/15/20: Patient doing well Knee injections will be performed this afternoon Dr Hooper consulted for wound care Wound vac contemplated Yeast infection noted so will initiate Diflucan and wound care will initiate topicals per protocol No issues otherwise Review of Systems General: Fatigue, Malaise Neurological: Weakness Objective Exam Vital Signs Vital Signs Date Time Temp Pulse Resp B/P (MAP) Pulse Ox O2 Delivery O2 Flow Rate FiO2 09/24/20 17:04 36.6 81 18 139/87 (104) 95 Room Air Capillary Refill : General Appearance: No Apparent Distress, WD/WN, Chronically ill, Obese (super morbidly) HEENT: PERRL/EOMI, Normal ENT Inspection, Pharynx Normal Neck: Full Range of Motion, Normal Inspection, Non Tender, Supple Respiratory: Lungs Clear, No Accessory Muscle Use, No Respiratory Distress Cardiovascular: Regular Rate, Rhythm, No Gallop, No JVD, No Murmur Gastrointestinal: Normal Bowel Sounds, No Organomegaly, No Pulsatile Mass, Non Tender, Soft Back: Normal Inspection, No CVA Tenderness, No Vertebral Tenderness Extremity: Normal Capillary Refill, Normal Inspection, Normal Range of Motion, Non Tender, No Calf Tenderness Neurologic/Psychiatric: Alert, Oriented x3, No Motor/Sensory Deficits, Normal 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 almost no erythema in inguinal creases) Results/Procedures Lab Patient resulted labs reviewed. FIM Transfers Therapy Code Descriptions/Definitions Functional [place] Measure: 0=Not Assessed/NA 4=Minimal Assistance 1=Total Assistance 5=Supervision or Setup 2=Maximal Assistance 6=Modified [place] 3=Moderate Assistance 7=Complete IndependenceSCALE: Activities may be completed with or without assistive devices. 8-Hfntrdyjsk-dzfpvzn completes the activity by him/herself with no assistance from a helper. 5-Set-up or Clean-up Assistance-helper sets up or cleans up; patient completes activity. [place] assists only prior to or following the activity. 4-Supervision or Touching Assistance-helper provides verbal cues and/or touching/steadying and/or contact guard assistance as patient completes activity. Assistance may be provided throughout the activity or intermittently. 3-Partial/Moderate Assistance-helper does LESS THAN HALF the effort. [place] lifts, holds or supports trunk or limbs, but provides less than half the effort. 2-Substantial/Maximal Assistance-helper does MORE THAN HALF the effort. [place] lifts or holds trunk or limbs and provides more than half the effort. 7-Smwspmahl-lvhrmh does ALL the effort. Patient does none of the effort to complete the activity. Or, the assistance of 2 or more helpers is required for the patient to complete the activity. If activity was not attempted, code reason: 7-Patient Refused. 9-Not Applicable-not attempted and the patient did not perform the activity before the current illness, exacerbation or injury. 10-Not Attempted due to Environmental Limitations-(lack of equipment, weather restraints, etc.). 88-Not Attempted due to Medical Conditions or Safety Concerns. Roll Left to Right (QC): 6 Sit to Lying (QC): 4 Sit to Stand (QC): 4 Chair/Vge-uz-Lspeu Xfer(QC): 4 Car Transfer (QC): 7 (Declined due to painful WB activity for transfer. ) Gait Training Does the Patient Walk?: No and Walking Goal IS indicated Distance: 150'x3 Walk 10 feet (QC): 4 Walk 50 ft with 2 Turns(QC): 4 Walk 150 ft (QC): 4 (150 ft x 4 reps with FWW with SBA and followed by wc) Walking 10ft/uneven surface-QC: 7 Gait Persons Needed: 1 Gait Assistive Device: FWW Wheelchair Training Does the Pt Use a Wheelchair?: Yes Wheel 50 ft with 2 turns (QC): 4 Wheel 150 ft (QC): 4 Type of Wheelchair: Manual Stair Training 1 Step (curb) (QC): 7 4 Steps (QC): 7 12 Steps (QC): 7 Balance Picking up an Object (QC): 88 ADL-Treatment Eating (QC): 6 Oral Hygiene (QC): 6 Shower/Bathe Self (QC): 7 Upper Body Dressing (QC): 6 Lower Body Dressing (QC): 6 On/Off Footwear (QC): 6 Toileting Hygiene (QC): 6 Toilet Transfer (QC): 6 Assessment/Plan Assessment and Plan Assess & Plan/Chief Complaint 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 DM HTN Obesity Knee pain requiring steroid injections every 3 months by PCP Dysuria 08/22/20 checking UA dx with UTI suspected ESBL placed on Katelin but UCx pansensitive so placed on Macrobid 09/21/20 Urinary incontinence 09/22/20 Plan: IRF protocol Knee xrays Home meds Pain control 09/15/20: Knee injections Appreciate Dr Bynum and Blas Buchanan Knee xrays discussed IRF protocol Dr Hooper appreciated 09/16/20: Dr Hooper consult Monitor UOP Pain control Knee injections appreciated 09/17/20: Monitor closely DC catheter tomorrow BM regimen 09/18/20: DC catheter Monitor for retention Wound care appreciated 09/19/20: Check UA Monitor closely 09/20/20: Monitor UCx Meropenem due to high risk for resistant organism 09/21/20: De-escalate abx and change to Macrobid Naproxen 09/22/20: UTI treatment Monitor closely Incontinence 09/23/20: Improved incontinence Wound care Improved status 09/24/20: Monitor closely Labs due tomorrow Wound care (1) Jose gangrene GISELLE CARBONE DO Sep 24, 2020 09:32
[2020-09-24] MEDS: polyethylene glycoL POWDER 17 GM (MIRALAX) PACK PO SCH ×2 (09:43→22:00)
[2020-09-24] MEDS: SENNA W/DOCUSATE (SENOKOT S) TABLET PO SCH ×2 (09:43→22:00)
[2020-09-24] MEDS: DOCUSATE SODIUM 100 MG (COLACE) CAP PO SCH ×2 (09:43→22:00)
[2020-09-24 17:04] VITALS: BP 139/87
[2020-09-24] MEDS: traZODone 100 MG (DESYREL) TAB PO SCH (22:07)
[2020-09-25 05:40] VITALS: BP 136/77
--- NOTE | 2020-09-25 05:47 | PM&R Progress Note ---
Subjective HPI/CC On Admission Date Seen by Provider: Sep 25, 2020 Time Seen by Provider: 08:30 Subjective/Events-last exam 09/25/20: Pt doing very well Voltaren Gel placed on the knees Bowels are moving well Lortab given prn 09/24/20: Patient doing well No complaints BM+ No issues Labs due tomorrow 09/23/20: Doing well BM++ Aleve is helping him since he takes that at home Walking very well Incontinence is improved Macrobid is treating UTI 09/22/20: Patient doing well Urinary incontinence reported at night and he was embarrassed to mention it Dr Muñoz was notified and if the issue continues after UTI treatment completed will initiate meds. PVR evaluation in meantime Limits his Oxycodone 09/21/20: Pt had a really good night of sleep last night Doing very well Naproxen 500mg twice daily will be started Overall feels very good Wound is healing well Pansensitive UCx so will start o Macrobid and DC Katelin 09/20/20: Pt doing very well Wants to know when he can get his knee replaced Dr. Bynum will see him as an outpatient Dr. Hooper will update him about his wound management Meropenem maintained for UTI since I suspect ESBL Improved dysuria Bowels are moving well Pain is controlled 09/19/20: Pt doing a lot better Shower was uneventful Dressing change, it looks good. Bowels moved yesterday Voiding well since removed catheter Transferring a lot better Dysuria reported and he thinks he has a UTI so will check UA 09/18/20: Pt doing very well Catheter has been discontinued and if he cant void and has retention, we will consult urology Labs stable Will use commode instead of using bedpan from here on out Overall motivated to improve 09/17/20: Full code now since he was DNR when they contemplated removing his penis and testicles so changed to full code in EMR Dr Hooper saw the patient DC catheter tomorrow and if retention occurs will consult Urology BM treatment 09/16/20: Patient denies pain. Daughter at bedside Appreciate Dr Hooper guidance on wound Changed dressing today Knee injections went well yesterday 4600 output in lama 09/15/20: Patient doing well Knee injections will be performed this afternoon Dr Hooper consulted for wound care Wound vac contemplated Yeast infection noted so will initiate Diflucan and wound care will initiate topicals per protocol No issues otherwise Review of Systems General: Fatigue Neurological: Weakness Objective Exam Vital Signs Vital Signs Date Time Temp Pulse Resp B/P (MAP) Pulse Ox O2 Delivery O2 Flow Rate FiO2 09/25/20 20:00 94 Room Air 09/25/20 17:00 36.6 89 18 141/81 (101) Capillary Refill : General Appearance: No Apparent Distress, WD/WN, Chronically ill, Obese (super morbidly) HEENT: PERRL/EOMI, Normal ENT Inspection, Pharynx Normal Neck: Full Range of Motion, Normal Inspection, Non Tender, Supple Respiratory: Lungs Clear, No Accessory Muscle Use, No Respiratory Distress Cardiovascular: Regular Rate, Rhythm, No Gallop, No JVD, No Murmur Gastrointestinal: Normal Bowel Sounds, No Organomegaly, No Pulsatile Mass, Non Tender, Soft Back: Normal Inspection, No CVA Tenderness, No Vertebral Tenderness Extremity: Normal Capillary Refill, Normal Inspection, Normal Range of Motion, Non Tender, No Calf Tenderness Neurologic/Psychiatric: Alert, Oriented x3, No Motor/Sensory Deficits, Normal 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 almost no erythema in inguinal creases) Results/Procedures Lab Laboratory Tests 09/25/20 06:05 Patient resulted labs reviewed. FIM Transfers Therapy Code Descriptions/Definitions Functional [place] Measure: 0=Not Assessed/NA 4=Minimal Assistance 1=Total Assistance 5=Supervision or Setup 2=Maximal Assistance 6=Modified [place] 3=Moderate Assistance 7=Complete IndependenceSCALE: Activities may be completed with or without assistive devices. 9-Ddnhiqklfn-gmnxpsg completes the activity by him/herself with no assistance from a helper. 5-Set-up or Clean-up Assistance-helper sets up or cleans up; patient completes activity. [place] assists only prior to or following the activity. 4-Supervision or Touching Assistance-helper provides verbal cues and/or touching/steadying and/or contact guard assistance as patient completes activity. Assistance may be provided throughout the activity or intermittently. 3-Partial/Moderate Assistance-helper does LESS THAN HALF the effort. [place] lifts, holds or supports trunk or limbs, but provides less than half the effort. 2-Substantial/Maximal Assistance-helper does MORE THAN HALF the effort. [place] lifts or holds trunk or limbs and provides more than half the effort. 0-Qrxurclsg-yfsxvf does ALL the effort. Patient does none of the effort to complete the activity. Or, the assistance of 2 or more helpers is required for the patient to complete the activity. If activity was not attempted, code reason: 7-Patient Refused. 9-Not Applicable-not attempted and the patient did not perform the activity before the current illness, exacerbation or injury. 10-Not Attempted due to Environmental Limitations-(lack of equipment, weather restraints, etc.). 88-Not Attempted due to Medical Conditions or Safety Concerns. Roll Left to Right (QC): 6 Sit to Lying (QC): 4 Sit to Stand (QC): 4 Chair/Skr-xo-Obhxg Xfer(QC): 4 Car Transfer (QC): 7 (Declined due to painful WB activity for transfer. ) Gait Training Does the Patient Walk?: No and Walking Goal IS indicated Distance: 150'x3 Walk 10 feet (QC): 4 Walk 50 ft with 2 Turns(QC): 4 Walk 150 ft (QC): 4 (150 ft x 4 reps with FWW with SBA and followed by wc) Walking 10ft/uneven surface-QC: 7 Gait Persons Needed: 1 Gait Assistive Device: FWW Wheelchair Training Does the Pt Use a Wheelchair?: Yes Wheel 50 ft with 2 turns (QC): 4 Wheel 150 ft (QC): 4 Type of Wheelchair: Manual Stair Training 1 Step (curb) (QC): 7 4 Steps (QC): 7 12 Steps (QC): 7 Balance Picking up an Object (QC): 88 ADL-Treatment Eating (QC): 6 Oral Hygiene (QC): 6 Shower/Bathe Self (QC): 7 Upper Body Dressing (QC): 6 Lower Body Dressing (QC): 6 On/Off Footwear (QC): 6 Toileting Hygiene (QC): 6 Toilet Transfer (QC): 6 Assessment/Plan Assessment and Plan Assess & Plan/Chief Complaint Assessment: Jose's gangrene s/p multiple debridements consulting Dr Hooper for m anagement DM HTN Obesity Knee pain requiring steroid injections every 3 months by PCP Dysuria 08/22/20 checking UA dx with UTI suspected ESBL placed on Katelin but UCx pansensitive so placed on Macrobid 09/21/20 Urinary incontinence 09/22/20 Plan: IRF protocol Knee xrays Home meds Pain control 09/15/20: Knee injections Appreciate Dr Bynum and Blas Buchanan Knee xrays discussed IRF protocol Dr Hooper appreciated 09/16/20: Dr Hooper consult Monitor UOP Pain control Knee injections appreciated 09/17/20: Monitor closely DC catheter tomorrow BM regimen 09/18/20: DC catheter Monitor for retention Wound care appreciated 09/19/20: Check UA Monitor closely 09/20/20: Monitor UCx Meropenem due to high risk for resistant organism 09/21/20: De-escalate abx and change to Macrobid Naproxen 09/22/20: UTI treatment Monitor closely Incontinence 09/23/20: Improved incontinence Wound care Improved status 09/24/20: Monitor closely Labs due tomorrow Wound care 09/25/20: Monitor pain DC Wed (1) Jose gangrene GISELLE CARBONE DO Sep 25, 2020 05:47
[2020-09-25] MEDS: MULTIVIT W/MINERALS TAB (THERAGRAN M) PO SCH (05:59)
[2020-09-25] MEDS: CATHETER FLUSH 10 ML SYR IV SCH ×3 (06:00→21:18)
[2020-09-25 06:26] LABS: BASOPHILS # (AUTO) 0.1 10^3/uL (0.0-0.1); BASOPHILS % (AUTO) 1 % (0-10); EOSINOPHILS # (AUTO) 0.3 10^3/uL (0.0-0.3); EOSINOPHILS % (AUTO) 4 % (0-10); HEMATOCRIT 38 % (40-54); HEMOGLOBIN 12.3 g/dL (13.3-17.7); LYMPHOCYTES # (AUTO) 2.5 10^3/uL (1.0-4.0); LYMPHOCYTES % (AUTO) 41 % (12-44); MEAN CORPUSCULAR HEMOGLOBIN 29 pg (25-34); MEAN CORPUSCULAR HGB CONC 32 g/dL (32-36); MEAN CORPUSCULAR VOLUME 90 fL (80-99); MEAN PLATELET VOLUME 10.2 fL (9.0-12.2); MONOCYTES # (AUTO) 0.8 10^3/uL (0.0-1.0); MONOCYTES % (AUTO) 13 % (0-12); NEUTROPHILS # (AUTO) 2.5 10^3/uL (1.8-7.8); NEUTROPHILS % (AUTO) 41 % (42-75); PLATELET COUNT 228 10^3/uL (130-400); WHITE BLOOD COUNT 6.2 10^3/uL (4.3-11.0)
[2020-09-25 06:42] LABS: ALBUMIN 4.1 GM/DL (3.2-4.5)
[2020-09-25 06:43] LABS: CHLORIDE 106 MMOL/L (98-107); SODIUM 140 MMOL/L (135-145)
[2020-09-25 06:44] LABS: CALCIUM 9.3 MG/DL (8.5-10.1)
[2020-09-25 06:45] LABS: GLUCOSE 106 MG/DL (70-105); TOTAL PROTEIN 7.3 GM/DL (6.4-8.2)
[2020-09-25 06:46] LABS: CARBON DIOXIDE 23 MMOL/L (21-32)
[2020-09-25 06:47] LABS: BILIRUBIN,TOTAL 0.6 MG/DL (0.1-1.0)
[2020-09-25 06:48] LABS: ALKALINE PHOSPHATASE 68 U/L (40-136)
[2020-09-25 06:49] LABS: CREATININE SERUM 0.87 MG/DL (0.60-1.30); GFR ESTIMATED > 60
[2020-09-25 06:50] LABS: BUN/CREATININE RATIO 10
[2020-09-25 06:52] LABS: ALANINE AMINOTRANSFERASE 65 U/L (0-55)
[2020-09-25] MEDS: LACTOBACILLUS ACIDOPHILUS (PROBIOTIC) CAPSULE PO SCH ×2 (08:02→21:15)
[2020-09-25] MEDS: ZINC SULFATE 220 MG CAPSULE PO SCH (08:02)
[2020-09-25] MEDS: LINAGLIPTIN (TRADJENTA) 5 MG TABLET PO SCH (08:02)
[2020-09-25] MEDS: NAPROXEN 250 MG (NAPROSYN) TABLET PO SCH ×2 (08:03→21:16)
[2020-09-25] MEDS: toPIRamate 25 MG (TOPAMAX) TAB PO SCH ×2 (08:03→21:15)
[2020-09-25] MEDS: ASCORBIC ACID (VIT C) 500 MG TABLET PO SCH ×2 (08:03→17:08)
[2020-09-25] MEDS: meTOprolol SUCCINATE 100 MG (TOPROL XL) TAB PO SCH (08:03)
[2020-09-25] MEDS: NITROFURANTOIN 100 MG (MACROBID) CAPSULE PO SCH ×2 (08:03→21:15)
[2020-09-25] MEDS: ENOXAPARIN 60 MG/0.6 ML (LOVENOX) SYR SC SCH ×2 (08:04→21:15)
[2020-09-25] MEDS: metFORMIN 500 MG (GLUCOPHAGE) TAB PO SCH ×2 (08:04→17:08)
[2020-09-25] MEDS: SENNA W/DOCUSATE (SENOKOT S) TABLET PO SCH ×2 (08:06→21:16)
[2020-09-25] MEDS: DOCUSATE SODIUM 100 MG (COLACE) CAP PO SCH ×2 (08:06→21:15)
[2020-09-25] MEDS: polyethylene glycoL POWDER 17 GM (MIRALAX) PACK PO SCH ×2 (08:06→21:15)
[2020-09-25] MEDS: MICONAZOLE 2% POWDER (DESENEX AF) 90 GM TOP SCH ×2 (08:07→21:17)
--- NOTE | 2020-09-25 10:03 | Physical Therapy Daily Note ---
PT Daily Note-Current Subjective Patient in WC in gym pre tx, agrees to PT, has unrated pain in both knees. Appearance Patient in WC post tx in therapy gym, has OT right after PT. Mental Status Patient Orientation: Normal For Age Transfers SCALE: Activities may be completed with or without assistive devices. 4-Ovxaphyjym-vsjalby completes the activity by him/herself with no assistance f rom a helper. 5-Set-up or Clean-up Assistance-helper sets up or cleans up; patient completes activity. [place] assists only prior to or following the activity. 4-Supervision or Touching Assistance-helper provides verbal cues and/or touching/steadying and/or contact guard assistance as patient completes activity. Assistance may be provided throughout the activity or intermittently. 3-Partial/Moderate Assistance-helper does LESS THAN HALF the effort. [place] lifts, holds or supports trunk or limbs, but provides less than half the effort. 2-Substantial/Maximal Assistance-helper does MORE THAN HALF the effort. [place] lifts or holds trunk or limbs and provides more than half the effort. 3-Aqmqneewb-dltwss does ALL the effort. Patient does none of the effort to complete the activity. Or, the assistance of 2 or more helpers is required for the patient to complete the activity. If activity was not attempted, code reason: 7-Patient Refused. 9-Not Applicable-not attempted and the patient did not perform the activity before the current illness, exacerbation or injury. 10-Not Attempted due to Environmental Limitations-(lack of equipment, weather restraints, etc.). 88-Not Attempted due to Medical Conditions or Safety Concerns. Sit to Stand (QC): 6 Chair/Gfw-rn-Bbakn Xfer(QC): 6 Weight Bearing Right Lower Extremity: Right Full Weight Bearing Left Lower Extremity: Left Full Weight Bearing Gait Training Distance: 150', 200' Walk 10 feet (QC): 5 Walk 50 ft with 2 Turns(QC): 5 Walk 150 ft (QC): 5 Gait Assistive Device: FWW follow, slow but steady ambulation, antalgic Wheelchair Training Does the Pt Use a Wheelchair?: Yes Wheel 50 ft with 2 turns (QC): 6 Wheel 150 ft (QC): 6 Type of Wheelchair: Manual Exercises NuStep Minutes: 20 NuStep Workload: 4 Treatments transfers, ambulation, LE exercise Assessment Current Status: Fair Progress good progress with strengthening but knee pain is still an issue PT Short Term Goals Short Term Goals Time Frame: Sep 21, 2020 Sit to stand: 4 (met) Chair/jxi-br-qxfyu transfer: 4 (met) Walk 150 feet: 4 (met) PT Nursing Home Goals High Voltage Electrician Goals PT Nursing Home Goals Time Frame: Sep 28, 2020 Roll Left & Right (QC): 6 Sit to Lying (QC): 6 Lying-Sitting on Side/Bed(QC): 6 Sit to Stand (QC): 6 Chair/Sxj-ht-Blyts Xfer(QC): 6 Toilet Transfer (QC): 6 Car Transfer (QC): 6 Does the Patient Walk: No and Walking Goal IS indicated Walk 10 feet (QC): 6 Walk 50ft with 2 Turns (QC): 6 Walk 150 ft (QC): 6 Walking 10ft on Uneven Surface: 6 1 Step (curb) (QC): 6 4 Steps (QC): 6 12 Steps (QC): 4 Picking up an Object (QC): 4 Does the Pt use WC or Scooter?: Yes Wheel 50 feet with 2 turns (QC: 6 Type: Manual Wheel 150 feet: 6 PT Plan Problem List Problem List: Activity Tolerance, Functional Strength, Safety, Balance, Gait, Transfer, Bed Mobility, ROM Treatment/Plan Treatment Plan: Continue Plan of Care Treatment Plan: Bed Mobility, Education, Functional Activity [place], Functional Strength, Group Therapy, Gait, Safety, Therapeutic Exercise, Transfers Treatment Duration: Sep 28, 2020 Frequency: At least 5 of 7 days/Wk (IRF) Estimated Hrs Per Day: 1.5 hours per day Patient and/or Family Agrees t: Yes Safety Risks/Education Patient Education: Gait Training, Transfer Techniques, Correct Positioning, Safety Issues Teaching Recipient: Patient Teaching Methods: Demonstration, Discussion Response to Teaching: Reinforcement Needed Time/GCodes Time In: 15 Time Out: 1015 Total Billed Treatment Time: 60 Total Billed Treatment 1 visit EX 20' FA 40' ARIEL CHU PT Sep 25, 2020 10:03
[2020-09-25] MEDS ORDERED: DICLOFENAC 1% GEL 100 GM (VOLTAREN) TUBE TOP PRN (11:15)
--- NOTE | 2020-09-25 13:38 | Physical Therapy Daily Note ---
PT Daily Note-Current Subjective Patient has unrated bilateral knee pain, agrees to PT. Appearance Patient in WC in room post tx, has nurse call, phone, tray, all needsmet. Mental Status Patient Orientation: Normal For Age Transfers SCALE: Activities may be completed with or without assistive devices. 6-Qzjbwyptzm-vwkqffn completes the activity by him/herself with no assistance from a helper. 5-Set-up or Clean-up Assistance-helper sets up or cleans up; patient completes activity. [place] assists only prior to or following the activity. 4-Supervision or Touching Assistance-helper provides verbal cues and/or touching/steadying and/or contact guard assistance as patient completes activity. Assistance may be provided throughout the activity or intermittently. 3-Partial/Moderate Assistance-helper does LESS THAN HALF the effort. [place] lifts, holds or supports trunk or limbs, but provides less than half the effort. 2-Substantial/Maximal Assistance-helper does MORE THAN HALF the effort. [place] lifts or holds trunk or limbs and provides more than half the effort. 0-Apomfjoic-fbdgsh does ALL the effort. Patient does none of the effort to complete the activity. Or, the assistance of 2 or more helpers is required for the patient to complete the activity. If activity was not attempted, code reason: 7-Patient Refused. 9-Not Applicable-not attempted and the patient did not perform the activity before the current illness, exacerbation or injury. 10-Not Attempted due to Environmental Limitations-(lack of equipment, weather restraints, etc.). 88-Not Attempted due to Medical Conditions or Safety Concerns. Sit to Stand (QC): 6 Chair/Fkv-vs-Hoyqj Xfer(QC): 6 Weight Bearing Right Lower Extremity: Right Full Weight Bearing Left Lower Extremity: Left Full Weight Bearing Gait Training Distance: 150'x2 Walk 10 feet (QC): 5 Walk 50 ft with 2 Turns(QC): 5 Walk 150 ft (QC): 5 Gait Assistive Device: FWW WC follow Stair Training Stair Training: Handrails/: 2 handrails #of Steps: 8 1 Step (curb) (QC): 5 4 Steps (QC): 5 Stairs: Pattern: Step to Assessment Current Status: Fair Progress Patient is able to perform stairs, still has pain but is able to push through with appropriate rest breaks PT Short Term Goals Short Term Goals Time Frame: Sep 21, 2020 Sit to stand: 4 (met) Chair/ard-nn-jyzth transfer: 4 (met) Walk 150 feet: 4 (met) PT 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 Goals [facility] Goals PT [facility] Goals Time Frame: Sep 28, 2020 Roll Left & Right (QC): 6 Sit to Lying (QC): 6 Lying-Sitting on Side/Bed(QC): 6 Sit to Stand (QC): 6 Chair/Tkx-tl-Svfas Xfer(QC): 6 Toilet Transfer (QC): 6 Car Transfer (QC): 6 Does the Patient Walk: No and Walking Goal IS indicated Walk 10 feet (QC): 6 Walk 50ft with 2 Turns (QC): 6 Walk 150 ft (QC): 6 Walking 10ft on Uneven Surface: 6 1 Step (curb) (QC): 6 4 Steps (QC): 6 12 Steps (QC): 4 Picking up an Object (QC): 4 Does the Pt use WC or Scooter?: Yes Wheel 50 feet with 2 turns (QC: 6 Type: Manual Wheel 150 feet: 6 PT Plan Problem List Problem List: Activity Tolerance, Functional Strength, Safety, Balance, Gait, Transfer, Bed Mobility, ROM Treatment/Plan Treatment Plan: Continue Plan of Care Treatment Plan: Bed Mobility, Education, Functional Activity [place], Functional Strength, Group Therapy, Gait, Safety, Therapeutic Exercise, Transfers Treatment Duration: Sep 28, 2020 Frequency: At least 5 of 7 days/Wk (IRF) Estimated Hrs Per Day: 1.5 hours per day Patient and/or Family Agrees t: Yes Safety Risks/Education Patient Education: Gait Training, Transfer Techniques, Steps, Correct Posi tioning, Safety Issues Teaching Recipient: Patient Teaching Methods: Demonstration, Discussion Response to Teaching: Reinforcement Needed Time/GCodes Time In: 1250 Time Out: 1320 Total Billed Treatment Time: 30 Total Billed Treatment 1 visit FA 30' ARIEL CHU PT Sep 25, 2020 13:38
[2020-09-25] MEDS: ACETAMINOPHEN 325 MG TABLET PO PRN (13:50)
--- NOTE | 2020-09-25 14:58 | Occupational Ther Daily Note ---
OT Current Status-Daily Note Subjective No pain reported. Appearance Pt. up in chair. Agrees to work with OT. Mental Status/Objective Patient Orientation: Person, Place, Time, Situation ADL-Treatment Therapy Code Descriptions/Definitions Functional [place]bert Measure: 0=Not Assessed/NA 4=Minimal Assistance 1=Total Assistance 5=Supervision or Setup 2=Maximal Assistance 6=Modified [place]bert 3=Moderate Assistance 7=Complete IndependenceSCALE: Activities may be completed with or without assistive devices. 1-Oguhzmkifd-wrnwnqu completes the activity by him/herself with no assistance from a helper. 5-Set-up or Clean-up Assistance-helper sets up or cleans up; patient completes activity. [place] assists only prior to or following the activity. 4-Supervision or Touching Assistance-helper provides verbal cues and/or touching/steadying and/or contact guard assistance as patient completes activity. Assistance may be provided throughout the activity or intermittently. 3-Partial/Moderate Assistance-helper does LESS THAN HALF the effort. [place] lifts, holds or supports trunk or limbs, but provides less than half the effort. 2-Substantial/Maximal Assistance-helper does MORE THAN HALF the effort. [place] lifts or holds trunk or limbs and provides more than half the effort. 2-Izxxotiny-aocdcq does ALL the effort. Patient does none of the effort to complete the activity. Or, the assistance of 2 or more helpers is required for the patient to complete the activity. If activity was not attempted, code reason: 7-Patient Refused. 9-Not Applicable-not attempted and the patient did not perform the activity before the current illness, exacerbation or injury. 10-Not Attempted due to Environmental Limitations-(lack of equipment, weather restraints, etc.). 88-Not Attempted due to Medical Conditions or Safety Concerns. Eating (QC): 6 Oral Hygiene (QC): 6 (per pt) Upper Body Dressing (QC): 6 (per pt) Lower Body Dressing (QC): 6 (per pt) Toileting Hygiene (QC): 6 (per pt) Toilet Transfer (QC): 6 (per pt) Other Treatment Pt. up in chair. He is already dressed for the day. Pt. self propels to therapy gym. Pt. completed arm bike x 30minutes at mod resistance, per his request, for overall strengthening and endurance. Pt. tolerated this well. Pt. then donned 3 lb. wrist weights and completed jenniffer activity with reciprocal movements back and forth. Tolerated this for 10minutes. Pt. worked on sit- stands at parallel bar from wheelchair level. Pt. able to stand with independence, and balance self for approximately 1 minute at a time, x 6 stands. Self propelled back to room. All needs met. Education OT Patient Education: Correct positioning, Exercise program, Progress toward Goal/Update tx plan, Purpose of tx/functional activities, Reviewed precautions, Rehab process, Transfer techniques Teaching Recipient: Patient Teaching Methods: Demonstration, Discussion Response to Teaching: Verbalize Understanding, Return Demonstration OT Short Term Goals Short Term Goals Time Frame: Sep 21, 2020 Eatin Oral hygiene: 5 Toileting hygiene: 4 Shower/bathe self: 4 Upper body dressin Lower body dressin Putting on/taking off footwear: 4 OT Health Information Manager Goals Residential Goals Time Frame: Sep 28, 2020 Eating (QC): 6 Oral Hygiene (QC): 6 Toileting Hygiene (QC): 6 Shower/Bathe Self (QC): 4 Upper Body Dressing (QC): 6 Lower Body Dressing (QC): 6 On/Off Footwear (QC): 6 Additional Goals: 1-Demonstrate ADL Tasks, 2-Verbalize Understanding, 3- ImproveStrength/[place]ner 1=Demonstrate adherence to instructed precautions during ADL tasks. 2=Patient will verbalize/demonstrate understanding of assistive devices/modifications for ADL. 3=Patient will improve strength/tolerance for activity to enable patient to perform ADL's. OT Education/Plan Problem List/Assessment Assessment: Decreased Activ Tolerance Discharge Recommendations Plan/Recommendations: Continue POC Treatment Plan/Plan of Care Treatment,Training & Education: Yes Patient would benefit from OT for education, treatment and training to promote independence in ADL's, mobility, safety and/or upper extremity function for ADL's. Plan of Care: ADL Retraining, Functional Mobility, UE Funct Exercise/Act Treatment Duration: Sep 28, 2020 Frequency: At least 5 of 7 days/Wk (IRF) Estimated Hrs Per Day: 1.5 hours per day Agreement: Yes Rehab Potential: Good Time/GCodes Start Time: 10:15 Stop Time: 11:15 Total Time Billed (hr/min): 60 Billed Treatment Time 1, Ex x 4 BRENDAN BARBOZA OT Sep 25, 2020 14:58
--- NOTE | 2020-09-25 15:01 | Occupational Ther Daily Note ---
OT Current Status-Daily Note Subjective No pain reported. Mental Status/Objective Patient Orientation: Person, Place, Time, Situation ADL-Treatment Therapy Code Descriptions/Definitions Functional [place] Measure: 0=Not Assessed/NA 4=Minimal Assistance 1=Total Assistance 5=Supervision or Setup 2=Maximal Assistance 6=Modified [place] 3=Moderate Assistance 7=Complete IndependenceSCALE: Activities may be completed with or without assistive devices. 1-Jcecozrwot-fnaqkwh completes the activity by him/herself with no assistance from a helper. 5-Set-up or Clean-up Assistance-helper sets up or cleans up; patient completes activity. [place] assists only prior to or following the activity. 4-Supervision or Touching Assistance-helper provides verbal cues and/or touching/steadying and/or contact guard assistance as patient completes activity. Assistance may be provided throughout the activity or intermittently. 3-Partial/Moderate Assistance-helper does LESS THAN HALF the effort. [place] lifts, holds or supports trunk or limbs, but provides less than half the effort. 2-Substantial/Maximal Assistance-helper does MORE THAN HALF the effort. [place] lifts or holds trunk or limbs and provides more than half the effort. 7-Hewnmkxxg-cyangm does ALL the effort. Patient does none of the effort to complete the activity. Or, the assistance of 2 or more helpers is required for the patient to complete the activity. If activity was not attempted, code reason: 7-Patient Refused. 9-Not Applicable-not attempted and the patient did not perform the activity before the current illness, exacerbation or injury. 10-Not Attempted due to Environmental Limitations-(lack of equipment, weather restraints, etc.). 88-Not Attempted due to Medical Conditions or Safety Concerns. Other Treatment Pt. agrees to work on UE strengthening and mobility. Pt. self propelled wheelchair throughout hospital, and outside for fresh air. Pt. worked on maneuvering wheelchair around outside, up and down ramps, around chairs, and over different surfaces. Pt. has no difficulty. Self propelled back inside, to elevator, and upstairs to room. All needs met. Education OT Patient Education: Correct positioning, Progress toward Goal/Update tx plan, Purpose of tx/functional activities, Reviewed precautions, Rehab process, Tr ansfer techniques Teaching Recipient: Patient Teaching Methods: Demonstration, Discussion Response to Teaching: Verbalize Understanding, Return Demonstration OT Short Term Goals Short Term Goals Time Frame: Sep 21, 2020 Eatin Oral hygiene: 5 Toileting hygiene: 4 Shower/bathe self: 4 Upper body dressin Lower body dressin Putting on/taking off footwear: 4 OT Mcc Goals Mcc Goals Time Frame: Sep 28, 2020 Eating (QC): 6 Oral Hygiene (QC): 6 Toileting Hygiene (QC): 6 Shower/Bathe Self (QC): 4 Upper Body Dressing (QC): 6 Lower Body Dressing (QC): 6 On/Off Footwear (QC): 6 Additional Goals: 1-Demonstrate ADL Tasks, 2-Verbalize Understanding, 3- ImproveStrength/Warner 1=Demonstrate adherence to instructed precautions during ADL tasks. 2=Patient will verbalize/demonstrate understanding of assistive devices/modifications for ADL. 3=Patient will improve strength/tolerance for activity to enable patient to perform ADL's. OT Education/Plan Problem List/Assessment Assessment: Decreased Activ Tolerance Discharge Recommendations Plan/Recommendations: Continue POC Treatment Plan/Plan of Care Treatment,Training & Education: Yes Patient would benefit from OT for education, treatment and training to promote independence in ADL's, mobility, safety and/or upper extremity function for ADL's. Plan of Care: ADL Retraining, Functional Mobility, UE Funct Exercise/Act Treatment Duration: Sep 28, 2020 Frequency: At least 5 of 7 days/Wk (IRF) Estimated Hrs Per Day: 1.5 hours per day Agreement: Yes Rehab Potential: Good Time/GCodes Start Time: 13:20 Stop Time: 13:50 Total Time Billed (hr/min): 30 Billed Treatment Time 1, FA x 2 BRENDAN BARBOZA OT Sep 25, 2020 15:01
[2020-09-25 17:00] VITALS: BP 141/81
[2020-09-25] MEDS: traZODone 100 MG (DESYREL) TAB PO SCH (21:15)
--- NOTE | 2020-09-26 05:20 | PM&R Progress Note ---
Subjective HPI/CC On Admission Date Seen by Provider: Sep 26, 2020 Time Seen by Provider: 08:00 Subjective/Events-last exam 09/26/20: Pt doing pretty well May need to go to [place] long-term Overall doing very well otherwise Bowels moved today Wound dressing shows improved 09/25/20: Pt doing very well Voltaren Gel placed on the knees Bowels are moving well Lortab given prn 09/24/20: Patient doing well No complaints BM+ No issues Labs due tomorrow 09/23/20: Doing well BM++ Aleve is helping him since he takes that at home Walking very well Incontinence is improved Macrobid is treating UTI 09/22/20: Patient doing well Urinary incontinence reported at night and he was embarrassed to mention it Dr Muñoz was notified and if the issue continues after UTI treatment completed will initiate meds. PVR evaluation in meantime Limits his Oxycodone 09/21/20: Pt had a really good night of sleep last night Doing very well Naproxen 500mg twice daily will be started Overall feels very good Wound is healing well Pansensitive UCx so will start o Macrobid and DC Katelin 09/20/20: Pt doing very well Wants to know when he can get his knee replaced Dr. Bynum will see him as an outpatient Dr. Hooper will update him about his wound management Meropenem maintained for UTI since I suspect ESBL Improved dysuria Bowels are moving well Pain is controlled 09/19/20: Pt doing a lot better Shower was uneventful Dressing change, it looks good. Bowels moved yesterday Voiding well since removed catheter Transferring a lot better Dysuria reported and he thinks he has a UTI so will check UA 09/18/20: Pt doing very well Catheter has been discontinued and if he cant void and has retention, we will consult urology Labs stable Will use commode instead of using bedpan from here on out Overall motivated to improve 09/17/20: Full code now since he was DNR when they contemplated removing his penis and testicles so changed to full code in EMR Dr Hooper saw the patient DC catheter tomorrow and if retention occurs will consult Urology BM treatment 09/16/20: Patient denies pain. Daughter at bedside Appreciate Dr Hooper guidance on wound Changed dressing today Knee injections went well yesterday 4600 output in lama 2/26/21: Patient doing well Knee injections will be performed this afternoon Dr Hooper consulted for wound care Wound vac contemplated Yeast infection noted so will initiate Diflucan and wound care will initiate topicals per protocol No issues otherwise Review of Systems General: Fatigue, Malaise Neurological: Weakness Objective Exam Vital Signs Vital Signs Date Time Temp Pulse Resp B/P (MAP) Pulse Ox O2 Delivery O2 Flow Rate FiO2 09/26/20 20:00 Room Air 09/26/20 17:19 36.5 89 20 131/66 (87) 95 Capillary Refill : General Appearance: No Apparent Distress, WD/WN, Chronically ill, Obese (super morbidly) HEENT: PERRL/EOMI, Normal ENT Inspection, Pharynx Normal Neck: Full Range of Motion, Normal Inspection, Non Tender, Supple Respiratory: Lungs Clear, No Accessory Muscle Use, No Respiratory Distress Cardiovascular: Regular Rate, Rhythm, No Gallop, No JVD, No Murmur Gastrointestinal: Normal Bowel Sounds, No Organomegaly, No Pulsatile Mass, Non Tender, Soft Back: Normal Inspection, No CVA Tenderness, No Vertebral Tenderness Extremity: Normal Capillary Refill, Normal Inspection, Normal Range of Motion, Non Tender, No Calf Tenderness Neurologic/Psychiatric: Alert, Oriented x3, No Motor/Sensory Deficits, Normal Mood/Affect, correctional counselor/case manager II-XII Norm as Tested, Motor Weakness (generalized ) Skin: Other (dressing to scrotum c/d/i, lama in place. almost no erythema in inguinal creases) Results/Procedures Lab Patient resulted labs reviewed. FIM Transfers Therapy Code Descriptions/Definitions Functional [place] Measure: 0=Not Assessed/NA 4=Minimal Assistance 1=Total Assistance 5=Supervision or Setup 2=Maximal Assistance 6=Modified [place] 3=Moderate Assistance 7=Complete IndependenceSCALE: Activities may be completed with or without assistive devices. 1-Ouaphgntci-cfuhzrh completes the activity by him/herself with no assistance from a helper. 5-Set-up or Clean-up Assistance-helper sets up or cleans up; patient completes activity. [place] assists only prior to or following the activity. 4-Supervision or Touching Assistance-helper provides verbal cues and/or touching/steadying and/or contact guard assistance as patient completes activity. Assistance may be provided throughout the activity or intermittently. 3-Partial/Moderate Assistance-helper does LESS THAN HALF the effort. [place] lifts, holds or supports trunk or limbs, but provides less than half the effort. 2-Substantial/Maximal Assistance-helper does MORE THAN HALF the effort. [place] lifts or holds trunk or limbs and provides more than half the effort. 1-Laypvouil-vmvetc does ALL the effort. Patient does none of the effort to complete the activity. Or, the assistance of 2 or more helpers is required for the patient to complete the activity. If activity was not attempted, code reason: 7-Patient Refused. 9-Not Applicable-not attempted and the patient did not perform the activity before the current illness, exacerbation or injury. 10-Not Attempted due to Environmental Limitations-(lack of equipment, weather restraints, etc.). 88-Not Attempted due to Medical Conditions or Safety Concerns. Roll Left to Right (QC): 6 Sit to Lying (QC): 4 Sit to Stand (QC): 6 Chair/Kcv-ij-Ddysr Xfer(QC): 6 Car Transfer (QC): 7 (Declined due to painful WB activity for transfer. ) Gait Training Does the Patient Walk?: No and Walking Goal IS indicated Distance: 150'x2 Walk 10 feet (QC): 5 Walk 50 ft with 2 Turns(QC): 5 Walk 150 ft (QC): 5 Walking 10ft/uneven surface-QC: 7 Gait Persons Needed: 1 Gait Assistive Device: FWW Wheelchair Training Does the Pt Use a Wheelchair?: Yes Wheel 50 ft with 2 turns (QC): 6 Wheel 150 ft (QC): 6 Type of Wheelchair: Manual Stair Training Stair Training: Handrails/: 2 handrails #of Steps: 8 1 Step (curb) (QC): 5 4 Steps (QC): 5 12 Steps (QC): 7 Stairs: Pattern: Step to Balance Picking up an Object (QC): 88 ADL-Treatment Eating (QC): 6 Oral Hygiene (QC): 6 (per pt) Shower/Bathe Self (QC): 7 Upper Body Dressing (QC): 6 (per pt) Lower Body Dressing (QC): 6 (per pt) On/Off Footwear (QC): 6 Toileting Hygiene (QC): 6 (per pt) Toilet Transfer (QC): 6 (per pt) Assessment/Plan Assessment and Plan Assess & Plan/Chief Complaint 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 DM HTN Obesity Knee pain requiring steroid injections every 3 months by PCP Dysuria 08/22/20 checking UA dx with UTI suspected ESBL placed on Katelin but UCx pansensitive so placed on Macrobid 09/21/20 Urinary incontinence 09/22/20 Plan: IRF protocol Knee xrays Home meds Pain control 09/15/20: Knee injections Appreciate Dr Bynum and Blas Buchanan Knee xrays discussed IRF protocol Dr Hooper appreciated 09/16/20: Dr Hooper consult Monitor UOP Pain control Knee injections appreciated 09/17/20: Monitor closely DC catheter tomorrow BM regimen 09/18/20: DC catheter Monitor for retention Wound care appreciated 09/19/20: Check UA Monitor closely 09/20/20: Monitor UCx Meropenem due to high risk for resistant organism 09/21/20: De-escalate abx and change to Macrobid Naproxen 09/22/20: UTI treatment Monitor closely Incontinence 09/23/20: Improved incontinence Wound care Improved status 09/24/20: Monitor closely Labs due tomorrow Wound care 09/25/20: Monitor pain DC 09/26/20: Delay in dispo since he does not have an apt ready yet [place] [facility] (1) Jose gangrene GISELLE CARBONE DO Sep 26, 2020 05:20
[2020-09-26] MEDS: MULTIVIT W/MINERALS TAB (THERAGRAN M) PO SCH (06:08)
[2020-09-26] MEDS: CATHETER FLUSH 10 ML SYR IV SCH ×3 (06:09→20:42)
[2020-09-26 06:22] VITALS: BP 124/83
[2020-09-26 08:00] VITALS: BP 140/89
[2020-09-26] MEDS: NAPROXEN 250 MG (NAPROSYN) TABLET PO SCH ×2 (08:28→20:43)
[2020-09-26] MEDS: metFORMIN 500 MG (GLUCOPHAGE) TAB PO SCH ×2 (08:28→18:26)
[2020-09-26] MEDS: LINAGLIPTIN (TRADJENTA) 5 MG TABLET PO SCH (08:29)
[2020-09-26] MEDS: ZINC SULFATE 220 MG CAPSULE PO SCH (08:29)
[2020-09-26] MEDS: LACTOBACILLUS ACIDOPHILUS (PROBIOTIC) CAPSULE PO SCH ×2 (08:29→20:42)
[2020-09-26] MEDS: ENOXAPARIN 60 MG/0.6 ML (LOVENOX) SYR SC SCH ×2 (08:29→20:42)
[2020-09-26] MEDS: ASCORBIC ACID (VIT C) 500 MG TABLET PO SCH ×2 (08:29→18:26)
[2020-09-26] MEDS: toPIRamate 25 MG (TOPAMAX) TAB PO SCH ×2 (08:29→20:42)
[2020-09-26] MEDS: meTOprolol SUCCINATE 100 MG (TOPROL XL) TAB PO SCH (08:29)
[2020-09-26] MEDS: DOCUSATE SODIUM 100 MG (COLACE) CAP PO SCH ×2 (08:32→20:48)
[2020-09-26] MEDS: SENNA W/DOCUSATE (SENOKOT S) TABLET PO SCH ×2 (08:33→20:48)
[2020-09-26] MEDS: MICONAZOLE 2% POWDER (DESENEX AF) 90 GM TOP SCH ×2 (08:33→20:48)
[2020-09-26] MEDS: polyethylene glycoL POWDER 17 GM (MIRALAX) PACK PO SCH ×2 (08:33→20:48)
--- NOTE | 2020-09-26 09:57 | Physical Therapy Daily Note ---
PT Daily Note-Current Subjective Patient in in therapy gym pre tx, agrees to PT, has unrated bilateral knee pain. Appearance Patient in in room post tx, he is independent in his room. Mental Status Patient Orientation: Normal For Age Transfers SCALE: Activities may be completed with or without assistive devices. 8-Tjieuefrkp-psxeoxb completes the activity by him/herself with no assistance from a helper. 5-Set-up or Clean-up Assistance-helper sets up or cleans up; patient completes activity. [place] assists only prior to or following the activity. 4-Supervision or Touching Assistance-helper provides verbal cues and/or touching/steadying and/or contact guard assistance as patient completes activity. Assistance may be provided throughout the activity or intermittently. 3-Partial/Moderate Assistance-helper does LESS THAN HALF the effort. [place] lifts, holds or supports trunk or limbs, but provides less than half the effort. 2-Substantial/Maximal Assistance-helper does MORE THAN HALF the effort. [place] lifts or holds trunk or limbs and provides more than half the effort. 7-Fzmqcyahe-xaxnjo does ALL the effort. Patient does none of the effort to complete the activity. Or, the assistance of 2 or more helpers is required for the patient to complete the activity. If activity was not attempted, code reason: 7-Patient Refused. 9-Not Applicable-not attempted and the patient did not perform the activity before the current illness, exacerbation or injury. 10-Not Attempted due to Environmental Limitations-(lack of equipment, weather restraints, etc.). 88-Not Attempted due to Medical Conditions or Safety Concerns. Sit to Stand (QC): 6 Chair/Etb-ur-Ieeui Xfer(QC): 6 Weight Bearing Right Lower Extremity: Right Full Weight Bearing Left Lower Extremity: Left Full Weight Bearing Gait Training Distance: 150'x2 Walk 10 feet (QC): 5 Walk 50 ft with 2 Turns(QC): 5 Walk 150 ft (QC): 5 Gait Assistive Device: FWW follow, slow but steady ambulation, antalgic Stair Training Stair Training: Handrails/: 2 handrails #of Steps: 8 1 Step (curb) (QC): 4 4 Steps (QC): 4 Stairs: Pattern: Step to SBA Exercises LAQ alternating for 5 min with 5# ankle weights NuStep Minutes: 20 NuStep Workload: 4 Treatments transfers, ambulation, LE strengthening Assessment Current Status: Fair Progress improving functional mobility but needs rest breaks due to knee pain and fatigue PT Short Term Goals Short Term Goals Time Frame: Sep 21, 2020 Sit to stand: 4 (met) Chair/jbj-ak-gjbbo transfer: 4 (met) Walk 150 feet: 4 (met) PT Senior Living Goals Senior Living Goals PT Steel Division Supervisor Goals Time Frame: Sep 28, 2020 Roll Left & Right (QC): 6 Sit to Lying (QC): 6 Lying-Sitting on Side/Bed(QC): 6 Sit to Stand (QC): 6 Chair/Itj-xk-Jjdfp Xfer(QC): 6 Toilet Transfer (QC): 6 Car Transfer (QC): 6 Does the Patient Walk: No and Walking Goal IS indicated Walk 10 feet (QC): 6 Walk 50ft with 2 Turns (QC): 6 Walk 150 ft (QC): 6 Walking 10ft on Uneven Surface: 6 1 Step (curb) (QC): 6 4 Steps (QC): 6 12 Steps (QC): 4 Picking up an Object (QC): 4 Does the Pt use WC or Scooter?: Yes Wheel 50 feet with 2 turns (QC: 6 Type: Manual Wheel 150 feet: 6 PT Plan Problem List Problem List: Activity Tolerance, Functional Strength, Safety, Balance, Gait, Transfer, Bed Mobility, ROM Treatment/Plan Treatment Plan: Continue Plan of Care Treatment Plan: Bed Mobility, Education, Functional Activity [place], Functional Strength, Group Therapy, Gait, Safety, Therapeutic Exercise, Transfers Treatment Duration: Sep 28, 2020 Frequency: At least 5 of 7 days/Wk (IRF) Estimated Hrs Per Day: 1.5 hours per day Patient and/or Family Agrees t: Yes Safety Risks/Education Patient Education: Gait Training, Transfer Techniques, Steps, Correct Positioning, Safety Issues Teaching Recipient: Patient Teaching Methods: Demonstration, Discussion Response to Teaching: Reinforcement Needed Time/GCodes Time In: 0900 Time Out: 1000 Total Billed Treatment Time: 60 Total Billed Treatment 1 visit EX 25' FA 35' ARIEL CHU PT Sep 26, 2020 09:57
--- NOTE | 2020-09-26 13:24 | Physical Therapy Daily Note ---
PT Daily Note-Current Subjective Patient in in therapy gym pre tx, agrees to PT, has unrated bilateral knee pain. Appearance Patient in post tx Mental Status Patient Orientation: Normal For Age Transfers SCALE: Activities may be completed with or without assistive devices. 7-Vnjtspggct-afntvrn completes the activity by him/herself with no assistance from a helper. 5-Set-up or Clean-up Assistance-helper sets up or cleans up; patient completes activity. [place] assists only prior to or following the activity. 4-Supervision or Touching Assistance-helper provides verbal cues and/or touching/steadying and/or contact guard assistance as patient completes activity. Assistance may be provided throughout the activity or intermittently. 3-Partial/Moderate Assistance-helper does LESS THAN HALF the effort. [place] lifts, holds or supports trunk or limbs, but provides less than half the effort. 2-Substantial/Maximal Assistance-helper does MORE THAN HALF the effort. [place] lifts or holds trunk or limbs and provides more than half the effort. 2-Liovgiwkh-rzxczp does ALL the effort. Patient does none of the effort to complete the activity. Or, the assistance of 2 or more helpers is required for the patient to complete the activity. If activity was not attempted, code reason: 7-Patient Refused. 9-Not Applicable-not attempted and the patient did not perform the activity before the current illness, exacerbation or injury. 10-Not Attempted due to Environmental Limitations-(lack of equipment, weather restraints, etc.). 88-Not Attempted due to Medical Conditions or Safety Concerns. Sit to Stand (QC): 6 Chair/Lbt-do-Ntdbw Xfer(QC): 6 Weight Bearing Right Lower Extremity: Right Full Weight Bearing Left Lower Extremity: Left Full Weight Bearing Gait Training Distance: 150'x2 Walk 10 feet (QC): 6 Walk 50 ft with 2 Turns(QC): 6 Walk 150 ft (QC): 6 Gait Assistive Device: FWW slow but steady ambulation Exercises Standing: Heel/toe raises, Mini squats Standing Reps: 20 Treatments transfers, ambulation, functional strengthening Assessment Current Status: Fair Progress improving functional mobility, still needs rest breaks between activity due to fatigue and knee pain PT Short Term Goals Short Term Goals Time Frame: Sep 21, 2020 Sit to stand: 4 (met) Chair/gja-sd-yfbtp transfer: 4 (met) Walk 150 feet: 4 (met) PT Sack Department Supervisor Goals Senior Care Goals PT Sack Department Supervisor Goals Time Frame: Sep 28, 2020 Roll Left & Right (QC): 6 Sit to Lying (QC): 6 Lying-Sitting on Side/Bed(QC): 6 Sit to Stand (QC): 6 Chair/Mnh-lw-Plfnq Xfer(QC): 6 Toilet Transfer (QC): 6 Car Transfer (QC): 6 Does the Patient Walk: No and Walking Goal IS indicated Walk 10 feet (QC): 6 Walk 50ft with 2 Turns (QC): 6 Walk 150 ft (QC): 6 Walking 10ft on Uneven Surface: 6 1 Step (curb) (QC): 6 4 Steps (QC): 6 12 Steps (QC): 4 Picking up an Object (QC): 4 Does the Pt use WC or Scooter?: Yes Wheel 50 feet with 2 turns (QC: 6 Type: Manual Wheel 150 feet: 6 PT Plan Problem List Problem List: Activity Tolerance, Functional Strength, Safety, Balance, Gait, Transfer, Bed Mobility, ROM Treatment/Plan Treatment Plan: Continue Plan of Care Treatment Plan: Bed Mobility, Education, Functional Activity [place], Functional Strength, Group Therapy, Gait, Safety, Therapeutic Exercise, Transfers Treatment Duration: Sep 28, 2020 Frequency: At least 5 of 7 days/Wk (IRF) Estimated Hrs Per Day: 1.5 hours per day Patient and/or Family Agrees t: Yes Safety Risks/Education Patient Education: Gait Training, Transfer Techniques, Correct Positioning, Safety Issues Teaching Recipient: Patient Teaching Methods: Demonstration, Discussion Response to Teaching: Reinforcement Needed Time/GCodes Time In: 1300 Time Out: 1330 Total Billed Treatment Time: 30 Total Billed Treatment 1 visit GT 20' EX 10' ARIEL CHU PT Sep 26, 2020 13:24
--- NOTE | 2020-09-26 14:11 | Occupational Ther Daily Note ---
OT Current Status-Daily Note Subjective No pain reported. Appearance Pt. up in wheelchair. Has already completed ADLs. Mental Status/Objective Patient Orientation: Person, Place, Time, Situation ADL-Treatment Therapy Code Descriptions/Definitions Functional [place] Measure: 0=Not Assessed/NA 4=Minimal Assistance 1=Total Assistance 5=Supervision or Setup 2=Maximal Assistance 6=Modified [place] 3=Moderate Assistance 7=Complete IndependenceSCALE: Activities may be completed with or without assistive devices. 2-Lzlvsyqluv-oegrzeh completes the activity by him/herself with no assistance from a helper. 5-Set-up or Clean-up Assistance-helper sets up or cleans up; patient completes a ctivity. [place] assists only prior to or following the activity. 4-Supervision or Touching Assistance-helper provides verbal cues and/or touching/steadying and/or contact guard assistance as patient completes activity. Assistance may be provided throughout the activity or intermittently. 3-Partial/Moderate Assistance-helper does LESS THAN HALF the effort. [place] lifts, holds or supports trunk or limbs, but provides less than half the effort. 2-Substantial/Maximal Assistance-helper does MORE THAN HALF the effort. [place] lifts or holds trunk or limbs and provides more than half the effort. 6-Wlcjjahyl-zoezea does ALL the effort. Patient does none of the effort to complete the activity. Or, the assistance of 2 or more helpers is required for the patient to complete the activity. If activity was not attempted, code reason: 7-Patient Refused. 9-Not Applicable-not attempted and the patient did not perform the activity before the current illness, exacerbation or injury. 10-Not Attempted due to Environmental Limitations-(lack of equipment, weather restraints, etc.). 88-Not Attempted due to Medical Conditions or Safety Concerns. Eating (QC): 6 Oral Hygiene (QC): 6 Shower/Bathe Self (QC): 6 (per pt) Upper Body Dressing (QC): 6 Lower Body Dressing (QC): 6 (per pt) On/Off Footwear: 6 Toileting Hygiene (QC): 6 Toilet Transfer (QC): 6 Other Treatment Pt. showers at night independently. Completes dressing tasks each morning independently. Pt. completing all ADL transfers independently. Completed 30 minutes on arm bike at mod resistance this date with no rest break to increase overall strength and endurance. Tolerated well. Pt. then tolerated overall endurance task with sit-stands and with donning 9 lbs. on LE for reciprocal movements. Pt. self propelled back to room with all needs met. Education OT Patient Education: Correct positioning, Exercise program, Modified ADL techniques, Progress toward Goal/Update tx plan, Purpose of tx/functional activities, Reviewed precautions, Rehab process, Transfer techniques Teaching Recipient: Patient Teaching Methods: Demonstration, Discussion Response to Teaching: Verbalize Understanding, Return Demonstration OT Short Term Goals Short Term Goals Time Frame: Sep 21, 2020 Eatin Oral hygiene: 5 Toileting hygiene: 4 Shower/bathe self: 4 Upper body dressin Lower body dressin Putting on/taking off footwear: 4 OT Elderly Caregiver Goals Elderly Caregiver Goals Time Frame: Sep 28, 2020 Eating (QC): 6 Oral Hygiene (QC): 6 Toileting Hygiene (QC): 6 Shower/Bathe Self (QC): 4 Upper Body Dressing (QC): 6 Lower Body Dressing (QC): 6 On/Off Footwear (QC): 6 Additional Goals: 1-Demonstrate ADL Tasks, 2-Verbalize Understanding, 3- ImproveStrength/[place] 1=Demonstrate adherence to instructed precautions during ADL tasks. 2=Patient will verbalize/demonstrate understanding of assistive devices /modifications for ADL. 3=Patient will improve strength/tolerance for activity to enable patient to perform ADL's. OT Education/Plan Discharge Recommendations Plan/Recommendations: Continue POC Therapy Discharge Recommendati: Home & Family Comment Pt. needs heavy duty walker. Treatment Plan/Plan of Care Treatment,Training & Education: Yes Patient would benefit from OT for education, treatment and training to promote independence in ADL's, mobility, safety and/or upper extremity function for ADL's. Plan of Care: ADL Retraining, Functional Mobility, UE Funct Exercise/Act Treatment Duration: Sep 28, 2020 Frequency: At least 5 of 7 days/Wk (IRF) Estimated Hrs Per Day: 1.5 hours per day Agreement: Yes Rehab Potential: Good Time/GCodes Start Time: 10:30 Stop Time: 11:30 Total Time Billed (hr/min): 60 Billed Treatment Time 1, Ex x 45minutes, FA x 15minutes BRENDAN BARBOZA OT Sep 26, 2020 14:11
--- NOTE | 2020-09-26 14:14 | Occupational Ther Daily Note ---
OT Current Status-Daily Note Subjective No pain reported. Mental Status/Objective Patient Orientation: Person, Place, Time, Situation ADL-Treatment Therapy Code Descriptions/Definitions Functional [place] Measure: 0=Not Assessed/NA 4=Minimal Assistance 1=Total Assistance 5=Supervision or Setup 2=Maximal Assistance 6=Modified [place] 3=Moderate Assistance 7=Complete IndependenceSCALE: Activities may be completed with or without assistive devices. 1-Dshczidenl-ggxungk completes the activity by him/herself with no assistance from a helper. 5-Set-up or Clean-up Assistance-helper sets up or cleans up; patient completes activity. [place] assists only prior to or following the activity. 4-Supervision or Touching Assistance-helper provides verbal cues and/or touching/steadying and/or contact guard assistance as patient completes activity. Assistance may be provided throughout the activity or intermittently. 3-Partial/Moderate Assistance-helper does LESS THAN HALF the effort. [place] lifts, holds or supports trunk or limbs, but provides less than half the effort. 2-Substantial/Maximal Assistance-helper does MORE THAN HALF the effort. [place] lifts or holds trunk or limbs and provides more than half the effort. 9-Regtdunuc-bsnowh does ALL the effort. Patient does none of the effort to complete the activity. Or, the assistance of 2 or more helpers is required for the patient to complete the activity. If activity was not attempted, code reason: 7-Patient Refused. 9-Not Applicable-not attempted and the patient did not perform the activity before the current illness, exacerbation or injury. 10-Not Attempted due to Environmental Limitations-(lack of equipment, weather restraints, etc.). 88-Not Attempted due to Medical Conditions or Safety Concerns. Other Treatment Pt. completed UE exercises with arm bike x 20 minutes at mod resistance to increase overall strength. Tolerated sit-stands at bar with independence, with emphasis to weight bear and increase LE strength for ADL tasks. Pt. self propelled wheelchair back to room. All needs met. Education OT Patient Education: Correct positioning, Exercise program Teaching Recipient: Patient Teaching Methods: Demonstration, Discussion Response to Teaching: Verbalize Understanding, Return Demonstration OT Short Term Goals Short Term Goals Time Frame: Sep 21, 2020 Eatin Oral hygiene: 5 Toileting hygiene: 4 Shower/bathe self: 4 Upper body dressin Lower body dressin Putting on/taking off footwear: 4 OT Director Multimedia Goals Senior Care Goals Time Frame: Sep 28, 2020 Eating (QC): 6 Oral Hygiene (QC): 6 Toileting Hygiene (QC): 6 Shower/Bathe Self (QC): 4 Upper Body Dressing (QC): 6 Lower Body Dressing (QC): 6 On/Off Footwear (QC): 6 Additional Goals: 1-Demonstrate ADL Tasks, 2-Verbalize Understanding, 3- ImproveStrength/[place] 1=Demonstrate adherence to instructed precautions during ADL tasks. 2=Patient will verbalize/demonstrate understanding of assistive devices/modifications for ADL. 3=Patient will improve strength/tolerance for activity to enable patient to perform ADL's. OT Education/Plan Discharge Recommendations Plan/Recommendations: Continue POC Therapy Discharge Recommendati: Home & Family Treatment Plan/Plan of Care Treatment,Training & Education: Yes Patient would benefit from OT for education, treatment and training to promote independence in ADL's, mobility, safety and/or upper extremity function for ADL's. Plan of Care: ADL Retraining, Functional Mobility, UE Funct Exercise/Act Treatment Duration: Sep 28, 2020 Frequency: At least 5 of 7 days/Wk (IRF) Estimated Hrs Per Day: 1.5 hours per day Agreement: Yes Rehab Potential: Good Time/GCodes Start Time: 13:30 Stop Time: 14:00 Total Time Billed (hr/min): 30 Billed Treatment Time 1, Ex x 2 BRENDAN BARBOZA OT Sep 26, 2020 14:14
[2020-09-26] MEDS: ACETAMINOPHEN 325 MG TABLET PO PRN (14:24)
[2020-09-26 17:19] VITALS: BP 131/66
[2020-09-26] MEDS: traZODone 100 MG (DESYREL) TAB PO SCH (20:42)
[2020-09-27] MEDS: CATHETER FLUSH 10 ML SYR IV SCH (06:15)
[2020-09-27] MEDS: MULTIVIT W/MINERALS TAB (THERAGRAN M) PO SCH (06:15)
[2020-09-27 06:22] VITALS: BP 146/88
[2020-09-27] MEDS: toPIRamate 25 MG (TOPAMAX) TAB PO SCH (08:10)
[2020-09-27] MEDS: LACTOBACILLUS ACIDOPHILUS (PROBIOTIC) CAPSULE PO SCH (08:10)
[2020-09-27] MEDS: ASCORBIC ACID (VIT C) 500 MG TABLET PO SCH (08:10)
[2020-09-27] MEDS: meTOprolol SUCCINATE 100 MG (TOPROL XL) TAB PO SCH (08:10)
[2020-09-27] MEDS: NAPROXEN 250 MG (NAPROSYN) TABLET PO SCH (08:10)
[2020-09-27] MEDS: LINAGLIPTIN (TRADJENTA) 5 MG TABLET PO SCH (08:11)
[2020-09-27] MEDS: metFORMIN 500 MG (GLUCOPHAGE) TAB PO SCH (08:12)
[2020-09-27] MEDS: ZINC SULFATE 220 MG CAPSULE PO SCH (08:12)
[2020-09-27] MEDS: ENOXAPARIN 60 MG/0.6 ML (LOVENOX) SYR SC SCH (08:13)
[2020-09-27] MEDS ORDERED: NITR0.4T39 SL (08:31)
[2020-09-27] MEDS ORDERED: TPR25T PO (08:31)
[2020-09-27] MEDS ORDERED: LINA5TAB PO (08:31)
[2020-09-27] MEDS ORDERED: ATOR20TA66 PO (08:31)
[2020-09-27] MEDS ORDERED: ASCO500T17 PO (08:31)
[2020-09-27] MEDS ORDERED: MTP100TCR PO (08:31)
[2020-09-27] MEDS ORDERED: MULT1TAB63 PO (08:31)
[2020-09-27] MEDS ORDERED: TRAZ-227 PO (08:31)
[2020-09-27] MEDS ORDERED: TIZA4TAB4 PO (08:31)
[2020-09-27] MEDS ORDERED: MICO90PO TOP (08:31)
[2020-09-27] MEDS ORDERED: NAPR-915 PO (08:31)
[2020-09-27] MEDS ORDERED: METF-397 PO (08:31)
[2020-09-27] MEDS ORDERED: OXC5T PO (08:31)
--- NOTE | 2020-09-27 08:33 | Discharge Summary ---
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 DM HTN Obesity Knee pain requiring steroid injections every 3 months by PCP Dysuria 08/22/20 checking UA dx with UTI suspected ESBL placed on [place] but UCx pansensitive so placed on Macrobid 09/21/20 Urinary incontinence 09/22/20 Plan: IRF protocol Knee xrays Home meds Pain control 09/15/20: Knee injections Appreciate Dr yBnum and Blas Buchanan Knee xrays discussed IRF protocol Dr Hooper appreciated 09/16/20: Dr Hooper consult Monitor UOP Pain control Knee injections appreciated 09/17/20: Monitor closely DC catheter tomorrow BM regimen 09/18/20: DC catheter Monitor for retention Wound care appreciated 09/19/20: Check UA Monitor closely 09/20/20: Monitor UCx Meropenem due to high risk for resistant organism 09/21/20: De-escalate abx and change to Macrobid Naproxen 09/22/20: UTI treatment Monitor closely Incontinence 09/23/20: Improved incontinence Wound care Improved status 09/24/20: Monitor closely Labs due tomorrow Wound care 09/25/20: Monitor pain DC 09/26/20: Delay in dispo since he does not have an apt ready yet [place] [facility] (1) Jose gangrene Discharge Summary Discharge Physical Examination Allergies: Coded Allergies: No Known Drug Allergies (Unverified , 09/14/20) Vitals & I&Os Vital Signs Date Time Temp Pulse Resp B/P (MAP) Pulse Ox O2 Delivery O2 Flow Rate FiO2 09/27/20 11:00 36.3 79 20 146/88 98 Room Air General Appearance: Alert, Oriented X3, Cooperative Respiratory: Clear to Auscultation Cardiovascular: Regular Rate Psych/Mental Status: Mental Status NL Hospital Course Was the Problem List Reviewed?: Yes Hospital Course: Pt had a lengthy hospital course for two weeks after he was admitted after extensive debridements of fourniers gangrene. He had finished antibiotics prior to transfer. He underwent wound care by Dr. Hooper. Wound vac and wound care dressings maintained with good results. Labs remained stable and BP remained stable. Pain was well controlled and he was able to participate in therapy and was deemed stable for DC. Labs (last 24 hrs) Laboratory Tests 09/14/20 13:30: Lab Scanned Report Referred Lab Report 09/14/20 15:41: Glucometer 108 09/15/20 05:50: White Blood Count 8.3, Red Blood Count 4.07L, Hemoglobin 12.2L, Hematocrit 37L, Mean Corpuscular Volume 91, Mean Corpuscular Hemoglobin 30, Mean Corpuscular Hemoglobin Concent 33, Red Cell Distribution Width 13.1, Platelet Count 290, Mean Platelet Volume 10.2, Immature Granulocyte % (Auto) 1, Neutrophils (%) (Auto) 51, Lymphocytes (%) (Auto) 33, Monocytes (%) (Auto) 10, Eosinophils (%) (Auto) 5, Basophils (%) (Auto) 1, Neutrophils # (Auto) 4.2, Lymphocytes # (Auto) 2.8, Monocytes # (Auto) 0.9, Eosinophils # (Auto) 0.4H, Basophils # (Auto) 0.0, Immature Granulocyte # (Auto) 0.1, Sodium Level 136, Potassium Level 3.7, Chloride Level 104, Carbon Dioxide Level 23, Anion Gap 9, Blood Urea Nitrogen 12, Creatinine 0.90, Estimat Glomerular Filtration Rate > 60, BUN/Creatinine Ratio 13, Glucose Level 110H, Calcium Level 9.1, Corrected Calcium 9.3, Total Bilirubin 0.6, Aspartate Amino Transf (AST/SGOT) 57H, Alanine Aminotransferase (ALT/SGPT) 67H, Alkaline Phosphatase 74, Total Protein 7.4, Albumin 3.8 09/18/20 05:15: White Blood Count 8.6, Red Blood Count 4.08L, Hemoglobin 12.2L, Hematocrit 37L, Mean Corpuscular Volume 91, Mean Corpuscular Hemoglobin 30, Mean Corpuscular Hemoglobin Concent 33, Red Cell Distribution Width 13.1, Platelet Count 254, Mean Platelet Volume 10.6, Immature Granulocyte % (Auto) 1, Neutrophils (%) (Auto) 54, Lymphocytes (%) (Auto) 33, Monocytes (%) (Auto) 10, Eosinophils (%) (Auto) 1, Basophils (%) (Auto) 1, Neutrophils # (Auto) 4.6, Lymphocytes # (Auto) 2.8, Monocytes # (Auto) 0.9, Eosinophils # (Auto) 0.1, Basophils # (Auto) 0.1, Immature Granulocyte # (Auto) 0.1, Sodium Level 138, Potassium Level 4.2, Chlor h[place] Level 106, Carbon Dioxide Level 22, Anion Gap 10, Blood Urea Nitrogen 15, Creatinine 0.83, Estimat Glomerular Filtration Rate > 60, BUN/Creatinine Ratio 18, Glucose Level 147H, Calcium Level 8.9, Corrected Calcium 9.1, Total Biliru bin 0.4, Aspartate Amino Transf (AST/SGOT) 48H, Alanine Aminotransferase (ALT/SGPT) 67H, Alkaline Phosphatase 73, Total Protein 7.1, Albumin 3.8 09/19/20 12:08: Urine Color YELLOW, Urine Clarity CLEAR, Urine pH 6.0, Urine Specific [place] 1.025H, Urine Protein 1+H, Urine Glucose (UA) NEGATIVE, Urine Ketones NEGATIVE, Urine Nitrite POSITIVEH, Urine Bilirubin NEGATIVE, Urine Urobilinogen 0.2, Urine Leukocyte Esterase 2+H, Urine RBC (Auto) 3+H, Urine RBC 5-10H, Urine WBC TNTCH, Urine Crystals NONE, Urine Bacteria MODERATEH, Urine Casts NONE, Urine Mucus NEGATIVE, Urine Culture Indicated YES 09/20/20 11:43: Glucometer 112H 09/25/20 06:05: White Blood Count 6.2, Red Blood Count 4.22L, Hemoglobin 12.3L, Hematocrit 38L, Mean Corpuscular Volume 90, Mean Corpuscular Hemoglobin 29, Mean Corpuscular Hemoglobin Concent 32, Red Cell Distribution Width 13.0, Platelet Count 228, Mean Platelet Volume 10.2, Immature Granulocyte % (Auto) 1, Neutrophils (%) (Auto) 41L, Lymphocytes (%) (Auto) 41, Monocytes (%) (Auto) 13H, Eosinophils (%) (Auto) 4, Basophils (%) (Auto) 1, Neutrophils # (Auto) 2.5, Lymphocytes # (Auto) 2.5, Monocytes # (Auto) 0.8, Eosinophils # (Auto) 0.3, Basophils # (Auto) 0.1, Immature Granulocyte # (Auto) 0.0, Sodium Level 140, Potassium Level 4.0, Chloride Level 106, Carbon Dioxide Level 23, Anion Gap 11, Blood Urea Nitrogen 9, Creatinine 0.87, Estimat Glomerular Filtration Rate > 60, BUN/Creatinine Ratio 10, Glucose Level 106H, Calcium Level 9.3, Corrected Calcium 9.2, Total Bilirubin 0.6, Aspartate Amino Transf (AST/SGOT) 56H, Alanine Aminotransferase (ALT/SGPT) 65H, Alkaline Phosphatase 68, Total Protein 7.3, Albumin 4.1 Microbiology 09/19/20 Urine Culture - Final, Complete Escherichia coli Pending Labs Microbiology Date/Time Source Procedure Growth Status 09/19/20 12:08 Urine Clean Catch Urine Culture - Final Escherichia coli Complete Laboratory Tests 09/14/20 13:30: Lab Scanned Report Referred Lab Report 09/14/20 15:41: Glucometer 108 09/15/20 05:50: White Blood Count 8.3, Red Blood Count 4.07, Hemoglobin 12.2, Hematocrit 37, Mean Corpuscular Volume 91, Mean Corpuscular Hemoglobin 30, Mean Corpuscular Hemoglobin Concent 33, Red Cell Distribution Width 13.1, Platelet Count 290, Mean Platelet Volume 10.2, Immature Granulocyte % (Auto) 1, Neutrophils (%) (Auto) 51, Lymphocytes (%) (Auto) 33, Monocytes (%) (Auto) 10, Eosinophils (%) (Auto) 5, Basophils (%) (Auto) 1, Neutrophils # (Auto) 4.2, Lymphocytes # (Auto) 2.8, Monocytes # (Auto) 0.9, Eosinophils # (Auto) 0.4, Basophils # (Auto) 0.0, Immature Granulocyte # (Auto) 0.1, Sodium Level 136, Potassium Level 3.7, Chloride Level 104, Carbon Dioxide Level 23, Anion Gap 9, Blood Urea Nitrogen 12, Creatinine 0.90, Estimat Glomerular Filtration Rate > 60, BUN/Creatinine Ratio 13, Glucose Level 110, Calcium Level 9.1, Corrected Calcium 9.3, Total Bilirubin 0.6, Aspartate Amino Transf (AST/SGOT) 57, Alanine Aminotransferase (ALT/SGPT) 67, Alkaline Phosphatase 74, Total Protein 7.4, Albumin 3.8 09/18/20 05:15: White Blood Count 8.6, Red Blood Count 4.08, Hemoglobin 12.2, Hematocrit 37, Mean Corpuscular Volume 91, Mean Corpuscular Hemoglobin 30, Mean Corpuscular Hemoglobin Concent 33, Red Cell Distribution Width 13.1, Platelet Count 254, Mean Platelet Volume 10.6, Immature Granulocyte % (Auto) 1, Neutrophils (%) (Auto) 54, Lymphocytes (%) (Auto) 33, Monocytes (%) (Auto) 10, Eosinophils (%) (Auto) 1, Basophils (%) (Auto) 1, Neutrophils # (Auto) 4.6, Lymphocytes # (Auto) 2.8, Monocytes # (Auto) 0.9, Eosinophils # (Auto) 0.1, Basophils # (Auto) 0.1, Immature Granulocyte # (Auto) 0.1, Sodium Level 138, Potassium Level 4.2, Chloride Level 106, Carbon Dioxide Level 22, Anion Gap 10, Blood Urea Nitrogen 15, Creatinine 0.83, Estimat Glomerular Filtration Rate > 60, BUN/Creatinine Ratio 18, Glucose Level 147, Calcium Level 8.9, Corrected Calcium 9.1, Total Bilirubin 0.4, Aspartate Amino Transf (AST/SGOT) 48, Alanine Aminotransferase (ALT/SGPT) 67, Alkaline Phosphatase 73, Total Protein 7.1, Albumin 3.8 09/19/20 12:08: Urine Color YELLOW, Urine Clarity CLEAR, Urine pH 6.0, Urine Specific [place] 1.025, Urine Protein 1+, Urine Glucose (UA) NEGATIVE, Urine Ketones NEGATIVE, Urine Nitrite POSITIVE, Urine Bilirubin NEGATIVE, Urine Urobilinogen 0.2, Urine Leukocyte Esterase 2+, Urine RBC (Auto) 3+, Urine RBC 5-10, Urine WBC TNTC, Urine Crystals NONE, Urine Bacteria MODERATE, Urine Casts NONE, Urine Mucus NEGATIVE, Urine Culture Indicated YES 09/20/20 11:43: Glucometer 112 09/25/20 06:05: White Blood Count 6.2, Red Blood Count 4.22, Hemoglobin 12.3, Hematocrit 38, Mean Corpuscular Volume 90, Mean Corpuscular Hemoglobin 29, Mean Corpuscular Hemoglobin Concent 32, Red Cell Distribution Width 13.0, Platelet Count 228, Mean Platelet Volume 10.2, Immature Granulocyte % (Auto) 1, Neutrophils (%) (Auto) 41, Lymphocytes (%) (Auto) 41, Monocytes (%) (Auto) 13, Eosinophils (%) (Auto) 4, Basophils (%) (Auto) 1, Neutrophils # (Auto) 2.5, Lymphocytes # (Auto) 2.5, Monocytes # (Auto) 0.8, Eosinophils # (Auto) 0.3, Basophils # (Auto) 0.1, Immature Granulocyte # (Auto) 0.0, Sodium Level 140, Potassium Level 4.0, Chloride Level 106, Carbon Dioxide Level 23, Anion Gap 11, Blood Urea Nitrogen 9, Creatinine 0.87, Estimat Glomerular Filtration Rate > 60, BUN/Creatinine Ratio 10, Glucose Level 106, Calcium Level 9.3, Corrected Calcium 9.2, Total Bilirubin 0.6, Aspartate Amino Transf (AST/SGOT) 56, Alanine Aminotransferase (ALT/SGPT) 65, Alkaline Phosphatase 68, Total Protein 7.3, Albumin 4.1 Discharge Home Medications: Active Scripts Active Certavite-Antioxidant Tablet (Multivitamin/Iron/Folic Acid) 1 Each Tablet 1 Ea PO DAILY@0700 Vitamin C (Ascorbic Acid) 500 Mg Tablet 500 Mg PO BID WITH MEALS Lotrimin AF (Miconazole Nitrate) 90 Gm Powder 0 Gm TOP BID Tradjenta (Linagliptin) 5 Mg Tablet 5 Mg PO DAILY Metformin HCl 500 Mg Tablet 1,000 Mg PO BID WITH MEALS Trazodone HCl 100 Mg Tablet 100 Mg PO HS Topamax (Topiramate) 25 Mg Tablet 25 Mg PO BID Oxyir Tablet (Oxycodone HCl) 5 Mg Tab 10 Mg PO Q4H PRN Metoprolol Succinate 100 Mg Tab.er.24h 100 Mg PO DAILY Tizanidine HCl 4 Mg Tablet 4 Mg PO TID PRN Naproxen 500 Mg Tablet 1,000 Mg PO 1800 Nitroglycerin 0.4 Mg Tab.subl 0.4 Mg SL UD PRN Atorvastatin Calcium 20 Mg Tablet 20 Mg PO 1800 Instructions to patient/family Please see electronic discharge instructions given to patient. Diagnosis/Problems Diagnosis/Problems (1) Jose gangrene GISELLE CARBONE DO Sep 27, 2020 08:33
--- NOTE | 2020-09-27 08:33 | D/C HH Face to Face Order ---
D/C Face to Face Orders Reconcile Patient Problems Problems Reviewed?: Yes Instructions for Patient Home Health Patient Instructions/FollowUp: PCP 1 week Physician to follow Patient: PCP Discharge Diet for Home: Regular Diet Patient Problems: s/p Jose's gangrene Patient Data-Allergies,Ht & Wt Patient Allergies: Coded Allergies: No Known Drug Allergies (Unverified , 09/14/20) Home Health Need/Face to Face Date of Face to Face: Sep 27, 2020 Clinical Findings: Generalized weakness and fatigue, Instability, Muscle weakness, Unsteady gait, Non-healing wound I have seen Pt intt-qu-cerw: Yes Discharged To: Home Diagnosis/Conditions: s/p Jose's gangrene Patient is Homebound due to: [place] fall risk due to instabilty, Muscle weakness Homebound Status Due to the above stated illness, injury or surgical procedure (medical condition or diagnosis) and associated clinical findings, the patient is homebound because of his/her inability to leave home except with aid of a supportive device and/or person AND leaving the home requires a considerable and taxing effort or is medically contraindicated. Pt req the following assistanc: Walker, Wheelchair Home Health Nursing Orders Home Health Services Order: Nursing Services, Monument Setter-Evaluate & Treat, Physical Therapy-Evaluate & Treat, Wound Care-Eval/Treat Certify Stmt I certify that this patient is under my care and that I, a nurse practitioner or a physician; a assistant manager working with me, had a face to face encounter that - meets the physician face to face encounter requirements with this patient as dated. GISELLE CARBONE DO Sep 27, 2020 08:33
--- NOTE | 2020-09-27 08:36 | Physical Therapy Daily Note ---
PT Daily Note-Current Subjective Pt sitting in [facility] upon arrival. Nursing is giving morning meds. Pt agrees to car transfer before DC today. All other QC scoring completed yesterday. Pain Location: No Pain Reported Mental Status Patient Orientation: Person, Place, Time, Situation Transfers SCALE: Activities may be completed with or without assistive devices. 2-Hjmbabaoqh-xvciiez completes the activity by him/herself with no assistance from a helper. 5-Set-up or Clean-up Assistance-helper sets up or cleans up; patient completes activity. [place] assists only prior to or following the activity. 4-Supervision or Touching Assistance-helper provides verbal cues and/or touching/steadying and/or contact guard assistance as patient completes activity. Assistance may be provided throughout the activity or intermittently. 3-Partial/Moderate Assistance-helper does LESS THAN HALF the effort. [place] lifts, holds or supports trunk or limbs, but provides less than half the effort. 2-Substantial/Maximal Assistance-helper does MORE THAN HALF the effort. [place] lifts or holds trunk or limbs and provides more than half the effort. 5-Lpqnmmgxu-lsosnl does ALL the effort. Patient does none of the effort to complete the activity. Or, the assistance of 2 or more helpers is required for the patient to complete the activity. If activity was not attempted, code reason: 7-Patient Refused. 9-Not Applicable-not attempted and the patient did not perform the activity before the current illness, exacerbation or injury. 10-Not Attempted due to Environmental Limitations-(lack of equipment, weather restraints, etc.). 88-Not Attempted due to Medical Conditions or Safety Concerns. Car Transfer (QC): 6 Weight Bearing Right Lower Extremity: Right Full Weight Bearing Left Lower Extremity: Left Full Weight Bearing Treatments Pt completes car transfer and returns to [facility]. All needs met. Assessment Current Status: Good Progress VC given for safety as pt steps in on one leg. 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 PT Long-Term Goals Time Frame: Sep 28, 2020 Roll Left & Right (QC): 6 Sit to Lying (QC): 6 Lying-Sitting on Side/Bed(QC): 6 Sit to Stand (QC): 6 Chair/Flo-kl-Ringf Xfer(QC): 6 Toilet Transfer (QC): 6 Car Transfer (QC): 6 Does the Patient Walk: No and Walking Goal IS indicated Walk 10 feet (QC): 6 Walk 50ft with 2 Turns (QC): 6 Walk 150 ft (QC): 6 Walking 10ft on Uneven Surface: 6 1 Step (curb) (QC): 6 4 Steps (QC): 6 12 Steps (QC): 4 Picking up an Object (QC): 4 Does the Pt use WC or Scooter?: Yes Wheel 50 feet with 2 turns (QC: 6 Type: Manual Wheel 150 feet: 6 PT Plan Treatment/Plan Treatment Plan: Continue Plan of Care Treatment Plan: Bed Mobility, Education, Functional Activity Warner, Functional Strength, Group Therapy, Gait, Safety, Therapeutic Exercise, Transfers Treatment Duration: Sep 28, 2020 Frequency: At least 5 of 7 days/Wk (IRF) Estimated Hrs Per Day: 1.5 hours per day Patient and/or Family Agrees t: Yes Safety Risks/Education Patient Education: Safety Issues Teaching Recipient: Patient Teaching Methods: Discussion Response to Teaching: Verbalize Understanding Time/GCodes Time In: 815 Time Out: 830 Total Billed Treatment Time: 15 Total Billed Treatment 1, FA (15m) YUAN ESCOBAR PTA Sep 27, 2020 08:36
--- NOTE | 2020-09-27 10:12 | Therapy Team Discharge Summary ---
Therapy Discharge Summary Discharge Recommendations Date of Discharge 09-27-20 Therapy D/C Recommendations: Home Independently Occupational Therapy Pt. has been seen by occupational therapy to increase overall strength and independence with daily tasks. Pt. has met all goals. Pt. is up independently in room. He is able to shower and dress self independently. He is independent with toileting and mobility. Pt. is discharging this date. No further OT warranted at this time. No Skilled OT Needs ID'd PT Usp Goals Usp Goals PT Defense Analyst Goals Time Frame: Sep 28, 2020 Roll Left to Right (QC): 6 Sit to Lying (QC): 6 Lying-Sitting on Side/Bed(QC): 6 Sit to Stand (QC): 6 Chair/Vxb-wr-Hkyfo Xfer(QC): 6 Car Transfer (QC): 6 Does the Patient Walk: No and Walking Goal IS indicated Walk 10 feet (QC): 6 Walk 10ft-Uneven Surface(QC): 6 Walk 50ft with 2 Turns (QC): 6 Walk 150 ft (QC): 6 Does the Pt use WC or Scooter?: Yes Wheel 50 feet with 2 turns (QC: 6 1 Step (curb) (QC): 6 4 Steps (QC): 6 12 Steps (QC): 4 Picking up an Object (QC): 4 OT Usp Goals Defense Analyst Goals Time Frame: Sep 28, 2020 Eating (QC): 6 (met) Oral Hygiene (QC): 6 (met) Shower/Bathe Self (QC): 4 (met) Upper Body Dressing (QC): 6 (met) Lower Body Dressing (QC): 6 (met) On/Off Footwear (QC): 6 (met) Toileting Hygiene (QC): 6 (met) Toilet/Commode Transfer (QC): 6 (met) Additional Goals: 1-Demonstrate ADL Tasks, 2-Verbalize Understanding, 3- ImproveStrength/Warner 1=Demonstrate adherence to instructed precautions during ADL tasks. 2=Patient will verbalize/demonstrate understanding of assistive devices/modifications for ADL. 3=Patient will improve strength/tolerance for activity to enable patient to perform ADL's. BRENDAN BARBOZA OT Sep 27, 2020 10:12
[2020-09-27 11:00] VITALS: BP 146/88
[2020-09-27] MEDS: DOCUSATE SODIUM 100 MG (COLACE) CAP PO SCH (12:41)
[2020-09-27] MEDS: polyethylene glycoL POWDER 17 GM (MIRALAX) PACK PO SCH (12:42)
[2020-09-27] MEDS: SENNA W/DOCUSATE (SENOKOT S) TABLET PO SCH (12:42)
--- NOTE | 2020-09-27 15:22 | Therapy Team Discharge Summary ---
Therapy Discharge Summary Discharge Recommendations Date of Discharge Therapy D/C Recommendations: Home Independently Physical Therapy Patient came to rehab following surgery for Jose Gangrene. Upon evaluation patient performed bed mobility with independence, and supine <-> sit SBA, and si t <-> stand and transfers with min assist. Patient was not able to ambulate at first due to knee pain but got shots in them and then was able to ambulate. Patient has been performing bed mobility and transfer training, balance and endurance training,functional strengthening, stair training, and education. 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 Now, patient performs bed mobility and transfers with independence, car transfer independent, ambulates 150' with a rolling walker with setup (including 50' with at least 2 turns of 90 degrees and 10' over an uneven surface), can go up and down 8 steps using 2 handrails with SBA/setup. Patient has discharged from this facility today and will be discharged from PT at this time. Occupational Therapy No Skilled OT Needs ID'd PT Usp Goals Explosive Man Goals PT Usp Goals Time Frame: Sep 28, 2020 Roll Left to Right (QC): 6 Sit to Lying (QC): 6 Lying-Sitting on Side/Bed(QC): 6 Sit to Stand (QC): 6 Chair/Axk-wl-Uzdpr Xfer(QC): 6 Car Transfer (QC): 6 Does the Patient Walk: No and Walking Goal IS indicated Walk 10 feet (QC): 6 Walk 10ft-Uneven Surface(QC): 6 Walk 50ft with 2 Turns (QC): 6 Walk 150 ft (QC): 6 Does the Pt use WC or Scooter?: Yes Wheel 50 feet with 2 turns (QC: 6 1 Step (curb) (QC): 6 4 Steps (QC): 6 12 Steps (QC): 4 Picking up an Object (QC): 4 OT Usp Goals Explosive Man Goals Time Frame: Sep 28, 2020 Eating (QC): 6 (met) Oral Hygiene (QC): 6 (met) Shower/Bathe Self (QC): 4 (met) Upper Body Dressing (QC): 6 (met) Lower Body Dressing (QC): 6 (met) On/Off Footwear (QC): 6 (met) Toileting Hygiene (QC): 6 (met) Toilet/Commode Transfer (QC): 6 (met) Additional Goals: 1-Demonstrate ADL Tasks, 2-Verbalize Understanding, 3- ImproveStrength/Warner 1=Demonstrate adherence to instructed precautions during ADL tasks. 2=Patient will verbalize/demonstrate understanding of assistive devices/modifications for ADL. 3=Patient will improve strength/tolerance for activity to enable patient to perform ADL's. ARIEL CHU PT Sep 27, 2020 15:22
== END 2020-09-27 11:00 | disposition home or self-care (01) | DRG 728 ==
PROVIDERS: ADMIT Internal Medicine; ATTEND Internal Medicine
PROC: 3E0U33Z Introduction of Anti-inflammatory into Joints, Percutaneous Approach (ICD-10-PCS; principal; 2020-09-15)
DX: N49.3 Fournier gangrene (principal); Z68.43 Body mass index [BMI] 50.0-59.9, adult; N39.0 Urinary tract infection, site not specified; G72.9 Myopathy, unspecified; R32 Unspecified urinary incontinence; B37.2 Candidiasis of skin and nail; E66.01 Morbid (severe) obesity due to excess calories; M17.0 Bilateral primary osteoarthritis of knee; E11.65 Type 2 diabetes mellitus with hyperglycemia; F32.9 Major depressive disorder, single episode, unspecified; I10 Essential (primary) hypertension; E78.00 Pure hypercholesterolemia, unspecified; F41.9 Anxiety disorder, unspecified; H91.93 Unspecified hearing loss, bilateral; Z79.84 Long term (current) use of oral hypoglycemic drugs; Z79.891 Long term (current) use of opiate analgesic; Z82.61 Family history of arthritis
CPT/HCPCS: 36415; 80053; 81000; 82962; 85025; 87077; 87088; 87186